=== PATIENT | female | born 1950 | race Caucasian/White ===

== ENCOUNTER 2017-09-19 14:10 | Emergency (ER) | payer MEDICARE, SELFPAY | END 2017-09-19 16:36 | disposition home or self-care (01) | PROVIDERS: Emergency Provider Emergency Medicine; Visit Provider Emergency Medicine | DX: B35.4 Tinea corporis (principal); N30.00 Acute cystitis without hematuria; E11.65 Type 2 diabetes mellitus with hyperglycemia; Z79.4 Long term (current) use of insulin; Z79.899 Other long term (current) drug therapy; I25.10 Atherosclerotic heart disease of native coronary artery without angina pectoris; I10 Essential (primary) hypertension; E78.5 Hyperlipidemia, unspecified; E03.9 Hypothyroidism, unspecified; F17.210 Nicotine dependence, cigarettes, uncomplicated | CPT/HCPCS: 81001; 82962; 87086; 87088; 87186; 99282 ==

== ENCOUNTER 2017-09-21 11:08 | Inpatient (IN) | payer MEDICARE, SELFPAY | END 2017-09-22 13:15 | disposition home or self-care (01) | DRG 641 | PROVIDERS: Admitting Provider Family Medicine; Emergency Provider Emergency Medicine; Family Provider Emergency Medicine; Visit Provider Family Medicine | DX: E87.6 Hypokalemia (principal); G20 Parkinson's disease; N39.0 Urinary tract infection, site not specified; B96.20 Unspecified Escherichia coli [E. coli] as the cause of diseases classified elsewhere; E11.9 Type 2 diabetes mellitus without complications; S40.011A Contusion of right shoulder, initial encounter; Z91.81 History of falling; W01.0XXA Fall on same level from slipping, tripping and stumbling without subsequent striking against object, initial encounter | CPT/HCPCS: 36415; 70450; 73030; 73080; 73502; 80048; 80053; 80305; 81001; 82550; 82553; 82962; 84484; 85025; 87086; 87088; 87186; 93005; 93041; 97162; 99282; 99285 ==

== ENCOUNTER 2017-10-08 02:44 | Emergency (ER) | payer MEDICARE, SELFPAY ==
[2017-10-08 02:44] VITALS: BP 145/98; PULSE 71; RESP 18; TEMP 36.6; O2SAT 94; BMI 37.8
--- NOTE | 2017-10-08 02:55 | CT_ITS ---
CT cervical spine wo con COMPARISON: None HISTORY: Neck pain after a fall TECHNIQUE: Multiaxial scans of cervical spine were obtained. Sagittal and coronal reformats were evaluated as well. FINDINGS: There is some straightening of normal curvature suggesting muscle spasm. There is multilevel degenerative changes noted with disc space narrowing and anterior and posterior osteophytic spurring at multiple levels. Disc space narrowing is most prominent at C5-6 and C6-7 levels. The prevertebral soft tissues are normal and the odontoid is normal. There is mild neural foraminal narrowing bilaterally at the C6-7 level secondary to spurring of the uncinate joints. There is focal ossification in the nuchal ligament at the C5-6 and C6-7 levels. IMPRESSION: Findings of muscle spasm along with multilevel degenerative changes, no acute pathology noted, agree the [facility] report
--- NOTE | 2017-10-08 02:55 | XR_ITS ---
XR hand RT 2V COMPARISON: None HISTORY: Right hand pain after a fall TECHNIQUE: AP lateral and oblique views FINDINGS: The carpal bones and metacarpals appear intact with no evidence of fracture. There is a fracture at the base of the distal phalanx of the thumb essentially nondisplaced.. There is mild soft tissue swelling at the base and along the border of the thumb. There are no foreign bodies. IMPRESSION: Soft tissue swelling the thumb along with nondisplaced fracture base of the distal phalanx of thumb
--- NOTE | 2017-10-08 03:01 | CT_ITS ---
CT head/brain wo con COMPARISON: CT scan of brain noncontrast 09/21/2017 HISTORY: Head trauma after a fall TECHNIQUE: Multiaxial scans obtained from base skull to the vertex and were performed without IV contrast. FINDINGS: The base of skull appears normal, the mastoids are clear. The basilar cisterns are prominent. There is diffuse ventriculomegaly. The sylvian fissures and cortical sulci are prominent. There are moderate periventricular hypodensities consistent with chronic ischemic white matter changes. There is no bleed and is no extra-axial fluid collections there is focal soft tissue swelling right frontal parietal region of the scalp consistent with a hematoma and/or laceration.. Bony calvarium appears intact. The studies basely unchanged from the recent CT scan the brain. IMPRESSION: Findings of prominent cortical atrophy, no acute intracranial pathology noted, I agree the [facility] report.
[2017-10-08 03:44] VITALS: BP 135/111; PULSE 70; RESP 20; O2SAT 96
--- NOTE | 2017-10-08 04:23 | HMH.EDFALL ---
ED Disposition Clinical Impression: Laceration Fall Qualifiers: Encounter type: initial encounter Qualified Code(s): W19.XXXA - Unspecified fall, initial encounter Head contusion Qualifiers: Encounter type: initial encounter Contusion of head detail: scalp Qualified Code(s): S00.03XA - Contusion of scalp, initial encounter Thumb fracture Qualifiers: Encounter type: initial encounter Fracture type: closed Phalanx: distal Fracture alignment: nondisplaced Laterality: right Qualified Code(s): S62.524A - Nondisplaced fracture of distal phalanx of right thumb, initial encounter for closed fracture Disposition: Home, Self-Care Condition on Discharge: Good Instructions: DI for Laceration Repair Additional Instructions: suture out 12 days - Critical Care Critical Care Time: No Attestation: On 10/08/17, the high probability of a clinically significant, sudden or life threatening deterioration of the following system(s) required my full and direct attention, intervention and personal management. The time I documented below is in addition to time spent performing reported procedures but includes the following listed in this critical care notation. Medical Decision Making - Medical Records Medical records reviewed: Yes: I reviewed the patient's medical records. Vital Signs: 10/08/17 02:44 10/08/17 03:44 Temperature 97.8 F Temperature Source Oral Pulse Rate [Brachial] 71 70 Respiratory Rate 18 20 Blood Pressure [Right Arm] 145/98 135/111 Blood Pressure Mean [Right Arm] 113 119 Blood Pressure Source [Right Arm] Automatic Cuff Automatic Cuff Blood Pressure Position [Right Arm] Supine Supine 02 Sat by Pulse Oximetry 94 L 96 Oxygen Delivery Method Room Air Room Air Orders (Tests/Meds): ORDERS Category Date Time Status CT cervical spine wo con Stat Cat Scan 10/08/17 02:[address] head/brain wo con Routine Cat Scan 10/08/17 03:01 Taken XR hand RT 2V Stat Exams 10/08/17 02:55 Taken - Radiology Data #1 Image(s): Hand Image Reviewed: Yes I reviewed the patient's radiology image Preliminary Findings: Abnormal (sl distal fx ) - CT Data CT Scan: Head, C-Spine Time Received: 04:[address] Reviewed: Yes: I have viewed the radiologist's interpretation Preliminary Findings: No Fracture Seen - [facility] Inquiry Pt receiving controlled substance: No Fall HPI - General Chief Complaint: Wound/Laceration Stated Complaint: LACERATION Time Seen by Provider: 10/08/17 04:24 Mode of Arrival: EMS Source of Information: Patient, EMS, Medical Record Limitations: Physical Limitations Description of Symptoms (Recalled from ER Triage Doc. by RN): TRIP AND FALL, LACERATION TO FRONT OF SCALP - History of Present Illness HPI Narrative: trip fall injury at [facility] with no loc or focal neuro sx and has scalp lac and rt thumb injury MD complaint: fall Onset (ago): hour(s) Fall from: walking Fall witnessed: yes, by living facility staff Place fall occurred: [facility] Loss of consciousness: none Prolonged down time: no Context: tripped/slipped Location of injury: head Severity: moderate Associated symptoms (after fall): neck pain - Related Data Allergies Allergy/AdvReac Type Severity Reaction Status Date / Time oxycodone [OXYCODONE] Allergy Severe MOUTH AND Unverified 09/21/17 15:40 THROAT SWELL quetiapine [From SEROQUEL] Allergy Unknown Unverified 09/12/17 15:42 [facility] History I have reviewed the patient's past medical history: Yes Medical History: Reports:: Diabetes Mellitus Type 2 - *Social History Alcohol Intake: never - Psychiatric History Expresses thoughts of harming self/others: None Suicide Plan Description: No Plan ROS Obtained: Yes All systems reviewed & no additional complaints - Constitutional Constitutional: Denies fever(s) - Eyes Eyes: Denies change in vision - ENT Ears, Nose, Mouth, and Throat: Denies sore throat - Cardiovascular Cardiovascular: Denies
--- NOTE | 2017-10-08 04:27 | ED_ITS ---
ED Disposition Clinical Impression: Laceration Fall Qualifiers: Encounter type: initial encounter Qualified Code(s): W19.XXXA - Unspecified fall, initial encounter Head contusion Qualifiers: Encounter type: initial encounter Contusion of head detail: scalp Qualified Code(s): S00.03XA - Contusion of scalp, initial encounter Thumb fracture Qualifiers: Encounter type: initial encounter Fracture type: closed Phalanx: distal Fracture alignment: nondisplaced Laterality: right Qualified Code(s): S62.524A - Nondisplaced fracture of distal phalanx of right thumb, initial encounter for closed fracture Disposition: Home, Self-Care Condition on Discharge: Good Instructions: DI for Laceration Repair Additional Instructions: suture out 12 days - Critical Care Critical Care Time: No Attestation: On 10/08/17, the high probability of a clinically significant, sudden or life threatening deterioration of the following system(s) required my full and direct attention, intervention and personal management. The time I documented below is in addition to time spent performing reported procedures but includes the following listed in this critical care notation. Medical Decision Making - Medical Records Medical records reviewed: Yes: I reviewed the patient's medical records. Vital Signs: 10/08/17 02:44 10/08/17 03:44 Temperature 97.8 F Temperature Source Oral Pulse Rate [Brachial] 71 70 Respiratory Rate 18 20 Blood Pressure [Right Arm] 145/98 135/111 Blood Pressure Mean [Right Arm] 113 119 Blood Pressure Source [Right Arm] Automatic Cuff Automatic Cuff Blood Pressure Position [Right Arm] Supine Supine 02 Sat by Pulse Oximetry 94 L 96 Oxygen Delivery Method Room Air Room Air Orders (Tests/Meds): ORDERS Category Date Time Status CT cervical spine wo con Stat Cat Scan 10/08/17 02:[address] head/brain wo con Routine Cat Scan 10/08/17 03:01 Taken XR hand RT 2V Stat Exams 10/08/17 02:55 Taken - Radiology Data #1 Image(s): Hand Image Reviewed: Yes I reviewed the patient's radiology image Preliminary Findings: Abnormal (sl distal fx ) - CT Data CT Scan: Head, C-Spine Time Received: 04:[address] Reviewed: Yes: I have viewed the radiologist's interpretation Preliminary Findings: No Fracture Seen - [facility] Inquiry Pt receiving controlled substance: No Fall HPI - General Chief Complaint: Wound/Laceration Stated Complaint: LACERATION Time Seen by Provider: 10/08/17 04:24 Mode of Arrival: EMS Source of Information: Patient, EMS, Medical Record Limitations: Physical Limitations Description of Symptoms (Recalled from ER Triage Doc. by RN): TRIP AND FALL, LACERATION TO FRONT OF SCALP - History of Present Illness HPI Narrative: trip fall injury at [facility] with no loc or focal neuro sx and has scalp lac and rt thumb injury MD complaint: fall Onset (ago): hour(s) Fall from: walking Fall witnessed: yes, by living facility staff Place fall occurred: [facility]/SNF Loss of consciousness: none Prolonged down time: no Context: tripped/slipped Location of injury: head Severity: moderate Associated symptoms (after fall): neck pain - Related Data Allergies Allergy/AdvReac Type Severity Reaction Status Date / Time oxycodone [OXYCODONE] Allergy Severe MOUTH AND Unverified 09/21/17 15:40 T
== END 2017-10-08 05:47 | disposition home or self-care (01) ==
PROVIDERS: Emergency Provider Emergency Medicine; Family Provider Emergency Medicine
DX: S01.01XA Laceration without foreign body of scalp, initial encounter (principal); S62.524A Nondisplaced fracture of distal phalanx of right thumb, initial encounter for closed fracture; E11.9 Type 2 diabetes mellitus without complications; W01.0XXA Fall on same level from slipping, tripping and stumbling without subsequent striking against object, initial encounter; Y93.01 Activity, walking, marching and hiking; Y92.129 Unspecified place in nursing home as the place of occurrence of the external cause
CPT/HCPCS: 12002; 70450; 72125; 73120; 99283

== ENCOUNTER 2018-04-24 09:57 | Outpatient (CLI) | payer MEDICARE, SELFPAY ==
[2018-04-24 10:33] VITALS: BMI 40.7
[2018-04-24 10:44] VITALS: BP 124/77; PULSE 74; RESP 18; TEMP 36.4; O2SAT 97
[2018-04-24 10:44] LABS: Anion Gap 8.9 mEq/L (5-15); Blood Urea Nitrogen 18 mg/dL (7-18); Carbon Dioxide 31 mmol/L (21.0-32.0); Chloride 104 mmol/L (98-107); Creatinine Clearance Estimated 70 mL/min (0-300); Creatinine,Serum 1.23 mg/dL (0.55-1.02); Estimated Glomerular Filt Rate 43 ml/min (>60); GFR (African American) 52 ML/MIN (>60); Glucose 89 mg/dL (74-106); Potassium 3.9 mmoL/L (3.5-5.1); Sodium 140 mmol/L (136-145)
[2018-04-24 11:14] VITALS: BP 121/72; PULSE 78; RESP 18; O2SAT 96
[2018-04-24 11:25] VITALS: BP 119/78; PULSE 75; RESP 18; O2SAT 97
== END 2018-04-24 11:30 | disposition home or self-care (01) ==
PROVIDERS: PCP Family Medicine; Visit Provider Family Medicine
DX: N39.0 Urinary tract infection, site not specified (principal)
CPT/HCPCS: 80048; 96365; J1335

== ENCOUNTER 2018-04-25 10:12 | Outpatient (CLI) | payer MEDICARE, SELFPAY ==
[2018-04-25 10:30] VITALS: BP 111/54; PULSE 70; RESP 18; TEMP 36.6; O2SAT 93
[2018-04-25 11:00] VITALS: BP 116/48; PULSE 67; RESP 18; O2SAT 93
[2018-04-25 11:30] VITALS: BP 115/58; PULSE 67; RESP 18
== END 2018-04-25 11:30 | disposition home or self-care (01) ==
LOC: INF 10:12
PROVIDERS: Family Provider Emergency Medicine; PCP Family Medicine; Visit Provider Family Medicine
DX: N39.0 Urinary tract infection, site not specified (principal)
CPT/HCPCS: 96365; J1335

== ENCOUNTER 2018-04-26 09:54 | Outpatient (CLI) | payer MEDICARE, SELFPAY ==
[2018-04-26 10:10] VITALS: BP 94/62; PULSE 70; RESP 18; O2SAT 96
[2018-04-26 10:40] VITALS: BP 148/66; PULSE 69; RESP 18
[2018-04-26 10:50] VITALS: BP 117/87; PULSE 70; RESP 18
== END 2018-04-26 11:20 | disposition home or self-care (01) ==
LOC: INF 09:54
PROVIDERS: Family Provider Emergency Medicine; PCP Family Medicine; Visit Provider Family Medicine
DX: N39.0 Urinary tract infection, site not specified (principal)
CPT/HCPCS: 96365; J1335

== ENCOUNTER 2018-04-27 09:48 | Outpatient (CLI) | payer MEDICARE, SELFPAY ==
[2018-04-27 10:15] VITALS: BP 118/49; PULSE 66; RESP 20; TEMP 36.6; O2SAT 96
[2018-04-27 10:55] VITALS: BP 120/70; PULSE 70; RESP 20; TEMP 36.6; O2SAT 94
== END 2018-04-27 10:55 | disposition home or self-care (01) ==
LOC: INF 09:48
PROVIDERS: Family Provider Emergency Medicine; PCP Family Medicine; Visit Provider Family Medicine
DX: N39.0 Urinary tract infection, site not specified (principal)
CPT/HCPCS: 96365; J1335

== ENCOUNTER 2018-04-28 11:11 | Outpatient (CLI) | payer MEDICARE, SELFPAY ==
[2018-04-28 11:20] VITALS: BP 114/49; PULSE 72; RESP 20; TEMP 36.4; O2SAT 98; BMI 38.4
[2018-04-28 12:25] VITALS: BP 109/46; PULSE 70; RESP 20; TEMP 36.5; O2SAT 95
== END 2018-04-28 12:25 | disposition home or self-care (01) ==
PROVIDERS: Family Provider Emergency Medicine; PCP Family Medicine; Visit Provider Family Medicine
DX: N39.0 Urinary tract infection, site not specified (principal)
CPT/HCPCS: 96365; G0463; J1335

== ENCOUNTER 2018-04-29 11:20 | Outpatient (CLI) | payer MEDICARE, SELFPAY ==
[2018-04-29 11:40] VITALS: BP 177/75; PULSE 65; RESP 18; TEMP 36.9; O2SAT 99
[2018-04-29 12:15] VITALS: BP 170/67; PULSE 70; RESP 18; TEMP 36.5; O2SAT 95
== END 2018-04-29 12:20 | disposition home or self-care (01) ==
LOC: INF 11:21
PROVIDERS: Family Provider Emergency Medicine; PCP Family Medicine; Visit Provider Family Medicine
DX: N39.0 Urinary tract infection, site not specified (principal)
CPT/HCPCS: 96365; J1335

== ENCOUNTER 2018-04-30 09:49 | Outpatient (CLI) | payer MEDICARE, SELFPAY ==
[2018-04-30 10:32] VITALS: BP 153/72; PULSE 70; RESP 16; TEMP 36.5; O2SAT 94; BMI 40.7
[2018-04-30 12:15] VITALS: BP 148/70; PULSE 68; RESP 20; TEMP 36.6; O2SAT 95
== END 2018-04-30 11:00 | disposition home or self-care (01) ==
LOC: INF 09:49
PROVIDERS: Family Provider Emergency Medicine; PCP Family Medicine; Visit Provider Family Medicine
DX: N39.0 Urinary tract infection, site not specified (principal)
CPT/HCPCS: 96365; J1335

== ENCOUNTER → 2019-11-28 11:42 | Outpatient (CLI) | payer MEDICARE, SELFPAY ==
--- NOTE | 2019-11-28 11:51 | XR_ITS ---
PROCEDURE: XR CHEST 2V CLINICAL HISTORY: PPM in place,looking at leads Heart disease, evaluate cardiac pacemaker COMPARISON: CXR2 CHEST-AP VIEW ONLY from 09/08/2015 CXR1 CHEST-PORTABLE from 05/02/2017 CXR1 CHEST-PORTABLE from 05/05/2017 CXR1 CHEST-PORTABLE from 05/08/2017 FINDINGS: Normal heart size. There is a bipolar pacemaker present from left subclavian approach. Leads appear in satisfactory position 1 in the area of the right atrium and 1 in the area of the right ventricle. Elevated right hemidiaphragm with right basilar atelectatic changes. The remaining lungs are clear. There are atelectatic or fibrotic changes in the right middle lobe. No acute bony abnormalities. IMPRESSION: Cardiac pacemaker present. Elevated right hemidiaphragm with right basilar and right middle lobe atelectasis Dictated by: John Red MD 11/28/2019 15:34 Electronically signed by John Red MD in [place] 11/28/2019 15:34
[2019-11-28 12:50] LABS: Basophils % 0.5 % (0.1-2.0); Eosinophils # 0.1 K/mm3 (0.0-0.4); Eosinophils % 1.1 % (0.1-12.0); Hematocrit 36.1 % (37.0-47.0); Hemoglobin 11.6 g/dL (12.2-16.2); Lymphocytes # 2.2 K/mm3 (0.7-4.5); Lymphocytes % 31.7 % (10-50); Mean Corpuscular HGB Conc 32.1 g/dL (31.8-35.4); Mean Corpuscular Hemoglobin 29.3 pg (27.0-31.2); Mean Corpuscular Volume 91.3 fl (81-99); Mean Platelet Volume 7.8 fl (7.4-10.4); Monocytes # 0.6 K/mm3 (0.1-1.0); Neutrophils # 4.1 K/mm3 (1.8-7.8); Neutrophils % 57.7 % (37.0-80.0); Platelet Count 190 K/mm3 (142-424); Red Blood Count 3.95 M/mm3 (4.20-5.40); Red Cell Distribution Width 14.8 % (11.5-17.5)
[2019-11-28 13:49] LABS: Anion Gap 14.3 mEq/L (5-15); Blood Urea Nitrogen 32 mg/dl (7-17); Calcium 9.5 mg/dl (8.4-10.2); Carbon Dioxide 28 mmol/L (22.0-30.0); Chloride 99 mmol/L (98-107); Estimated Glomerular Filt Rate 44 ml/min (>60); GFR (African American) 54 ML/MIN (>60); Glucose 148 mg/dl (74-100); Potassium 4.3 mmoL/L (3.5-5.1); Sodium 137 mmol/L (136-145)
[2019-11-28 15:39] LABS: Albumin Level 3.7 g/dl (3.5-5.0); Alkaline Phosphatase 68 U/L (38-126); Aspartate Amino Transferase 19 U/L (14-36); Bilirubin,Direct 0.1 mg/dl (0.0-0.4); Bilirubin,Indirect 0.3 mg/dL (0.0-0.9); Bilirubin,Total 0.4 mg/dl (0.2-1.3); Bilirubin,Unconjugated 0.2 mg/dL (0.0-1.1)
[2019-11-28 15:50] LABS: Alanine Aminotransferase 5 U/L (12-78)
[2019-11-28 15:57] LABS: Free T4 (Free Thyroxine) 2.47 ng/dl (0.78-2.19)
[2019-11-28 16:11] LABS: Thyroid Stimulating Hormone 7.91 uIU/mL (0.465-4.68)
== END ==
PROVIDERS: PCP Family Medicine; Visit Provider Nurse Practitioner Family
DX: I10 Essential (primary) hypertension (principal); I25.10 Atherosclerotic heart disease of native coronary artery without angina pectoris; Z95.0 Presence of cardiac pacemaker; I48.91 Unspecified atrial fibrillation; E78.5 Hyperlipidemia, unspecified; I48.0 Paroxysmal atrial fibrillation; E11.9 Type 2 diabetes mellitus without complications; Z79.84 Long term (current) use of oral hypoglycemic drugs
CPT/HCPCS: 36415; 71046; 80048; 80076; 84439; 84443; 85025

== ENCOUNTER → 2020-01-28 11:10 | Outpatient (CLI) | payer MEDICARE, SELFPAY ==
--- NOTE | 2020-01-28 11:11 | CA_ITS ---
APPROVED REPORT EXAM: Comprehensive 2D, Doppler, and color-flow Echocardiogram Refuse Collector: Debora Robert RT(R) Ht: 5 ft 3 in Wt: 210lbs BSA: 1.97 BP: 170/78 mmHg Indications: SOB, ex smoker, fatigue, edema, HTN, DM, angina, dizziness, CAD, AFIB, pacemaker, h/o CVA 2D Dimensions LVOT 1.89 cm (M/F) 1.5-2.5 M-Mode Dimensions RVDd 2.07 cm (0.9-2.6) LVDd 4.39 cm (3.5-5.7) LVDs 3.82 cm (3.5-5.7) IVSd 1.04 cm (0.6-1.1) PWd 1.12 cm (0.6-1.1) EF (Teich) 28.10% FS 13.00% EDV (Teich) 87.20 mL ESV (Teich) 62.70 mL Left Ventricle Left atrium is mildly enlarged, left ventricle is normal size, mild concentric left ventricular hypertrophy, visually estimated ejection fraction 55% with no regional wall motion abnormality, diastolic parameters are inconclusive. Right Ventricle Right atrium and right ventricular normal size and contractility, the pacemaker leads are not well visualized. Aortic Valve Aortic valve is thickened and calcified leaflet chordae display good mobility, there is no aortic stenosis or aortic insufficiency. Mitral Valve Mitral valve leaflets are minimally thickened, there is no mitral stenosis, there is mild mitral regurgitation. Tricuspid Valve Tricuspid valve is grossly normal, there is mild tricuspid regurgitation. Pulmonic Valve Pulmonic valve is poorly visualized. Great Vessels Aortic root is normal size. Pericardium No significant pericardial effusion noted. Conclusion 1. Mildly enlarged left atrium, normal left ventricular size, mild concentric left ventricular hypertrophy, visually estimated ejection fraction 55% with no regional wall motion abnormality, diastolic parameters are inconclusive. 2. Thickened and calcified aortic valve without aortic stenosis aortic insufficiency. 3. Mild mitral and tricuspid regurgitation. 4. The pacemaker leads are not well visualized. 5. No significant pericardial effusion. Electronically signed by : Erlin Cardenas, 01/28/2020 20:01:30
== END ==
PROVIDERS: PCP Family Medicine; Visit Provider Nurse Practitioner Family
DX: I25.10 Atherosclerotic heart disease of native coronary artery without angina pectoris (principal)
CPT/HCPCS: 93306

== ENCOUNTER 2020-02-26 05:03 | Emergency (ER) | payer MEDICARE, SELFPAY ==
[2020-02-26 05:09] VITALS: BP 186/85; PULSE 70; RESP 16; TEMP 37.1; O2SAT 97; BMI 37.2
[2020-02-26 05:41] VITALS: BP 000/00; PULSE 0; RESP 0; TEMP -17.7; TEMP 0; O2SAT 0
== END 2020-02-26 05:47 | disposition left against medical advice (07) ==
PROVIDERS: Emergency Provider Emergency Medicine; PCP Family Medicine
DX: Z53.21 Procedure and treatment not carried out due to patient leaving prior to being seen by health care provider (principal); R04.0 Epistaxis
CPT/HCPCS: 99211; 99281

== ENCOUNTER 2020-08-08 12:00 | Emergency (ER) | payer MEDICARE, SELFPAY ==
[2020-08-08 12:05] VITALS: BP 179/67; PULSE 71; RESP 17; O2SAT 99; BMI 40.7
--- NOTE | 2020-08-08 12:08 | XR_ITS ---
PROCEDURE: XR KNEE RT 2V.. From 08/08/2020 XR FEMUR RT 2V... from 08/08/2020 Referring Doctor: Sudhakar Martins Patient Age:70Y CLINICAL INDICATION: right hip pain right leg pain extends to knee COMPARISON: CR [id number] KNEE-3 VIEWS-LT from 05/01/2017 CR XR FEMUR RT 2V from 08/08/2020 CR XR HIP RT 2-3V W/PELVIS from 08/08/[address] HIP RT WO CON from 08/08/2020 FINDINGS: Right knee 2 view: AP and cross-table lateral No joint effusion. No acute fracture or dislocation. No lytic or blastic change. Adequate mineralization only mild demineralization Joint space well maintained with only only slight some borderline narrowing of the medial compartment on this nonweightbearing image. No erosive changes.; no subchondral cyst. Faint calcification projected over the tibial spine of not felt to be of significance and likely merely a far posterior small vascular calcification. . Right femur: AP and lateral view. Right femur intact-. No fracture. No lesions evident. Right femoral shaft intact The right hip included on this image set with no acute findings. Again longstanding stable mild hypertrophic changes and mild dystrophic calcification overlying the greater trochanter again noted. Diffuse faint wall vascular calcification SFA-suspect patient may be diabetic with this eggshell thin vascular calcification appearance. No additional soft tissue findings IMPRESSION: Right knee. No effusion. No fracture. No acute appearing findings. Borderline narrowing medial compartment on this nonweightbearing film may reflect scant degenerative changes Right femur intact with with no fracture or acute findings . Stable appearance at the right hip and greater trochanter unchanged since prior studies 2016, 2017 Dictated by: John Garcia MD 08/09/2020 11:27 John Garcia MD in [place] 08/09/2020 11:27
--- NOTE | 2020-08-08 12:08 | XR_ITS ---
PROCEDURE: XR HIP RT 2-3V W/PELVIS Referring Doctor: Sudhakar Martins Patient Age:70Y CLINICAL INDICATION: right hip pain right hip pain COMPARISON: CR PELAP PELVIS AP ONLY from 09/08/2015 CR [id number] HIP RT 2-3V W/PELVIS IF PERFOR from 09/21/2017 FINDINGS: Right hip AP and cross-table lateral views along with AP pelvis performed today These are reviewed in conjunction of CT right hip from today as well as CT pelvis for 2018 .. The Today's study shows no significant change since August 2017. Again some minimal dystrophic calcification and irregularity is seen at the lateral margin of the greater trochanter similar to the 2017 exam. No significant new plain films findings here. This feature is actually best seen on on the frog-leg view of right hip on 2017, which was not obtained today but however CT show that this area is stable but What is seen otherwise at the right hemipelvis appear stable with no acute findings but there mild degenerative changes right hip with some mild hypertrophic lipping at the superior acetabulum, but the superior hip joint spaces well maintained. Mild diffuse demineralization but unimpressive. Faint diffuse atherosclerotic calcification throughout proximal SFA-I suspect the patient diabetic with this appearance No fracture or dislocation is evident. No significant degenerative change. No lytic or blastic change. The AP pelvis image appears unchanged since 2017 as well. Sacrum SI joints appears satisfactory. The iliac bone and pubis and superior/inferior ramus appears satisfactory stable. The. IMPRESSION: No acute findings right hip. Minor degenerative changes right hip. No significant change since 2017 plain films of the right hip (Again minimal dystrophic calcification overlying the greater trochanter noted of similar to previous study.) Dictated by: John Garcia MD 08/08/2020 14:38 John Garcia MD in [place] 08/08/2020 14:38
--- NOTE | 2020-08-08 12:08 | XR_ITS ---
PROCEDURE: XR KNEE RT 2V.. From 08/08/2020 XR FEMUR RT 2V... from 08/08/2020 Referring Doctor: Sudhakar Martins Patient Age:70Y CLINICAL INDICATION: right hip pain right leg pain extends to knee COMPARISON: CR KNEE3L KNEE-3 VIEWS-LT from 05/01/2017 CR XR FEMUR RT 2V from 08/08/2020 CR XR HIP RT 2-3V W/PELVIS from 08/08/[address] HIP RT WO CON from 08/08/2020 FINDINGS: Right knee 2 view: AP and cross-table lateral No joint effusion. No acute fracture or dislocation. No lytic or blastic change. Adequate mineralization only mild demineralization Joint space well maintained with only only slight some borderline narrowing of the medial compartment on this nonweightbearing image. No erosive changes.; no subchondral cyst. Faint calcification projected over the tibial spine of not felt to be of significance and likely merely a far posterior small vascular calcification. . Left femur: AP and lateral view. Femoral shaft intact. No fracture. No lesions evident The the right hip included with no acute findings. Stable mild hypertrophic changes and mild dystrophic calcification overlying the greater trochanter again noted. Diffuse faint wall vascular calcification SFA-suspect patient may be diabetic with this eggshell thin vascular calcification appearance. No additional soft tissue findings IMPRESSION: Right knee. No effusion. No fracture. No acute appearing findings. Borderline narrowing medial compartment on this nonweightbearing film may reflect scant degenerative changes Right femur intact with with no fracture or acute findings . Stable appearance at the right hip and greater trochanter unchanged since prior studies 2016, 2018 Dictated by: John Garcia MD 08/08/2020 15:10 John Garcia MD in [place] 08/08/2020 15:10
--- NOTE | 2020-08-08 12:13 | HMH.EDGENADL ---
ED Disposition Clinical Impression: Right hip pain Disposition: Home, Self-Care Condition on Discharge: Fair Instructions: Sprain, DI for Chronic Pain -- Adult Additional Instructions: Please return with any new or worsening symptoms. Follow-up with your primary care physician on Monday for possible physical therapy referral. Take medication as prescribed. Prescriptions: Hydrocodone/Acetaminophen [Lortab 7.5/325mg tablet] 1 tab PO Q6HP PRN #10 tab PRN Reason: Severe Pain Prescription Printed Referrals: Pérez Sethi MD [Primary Care Provider] - - Critical Care Critical Care Time: No Attestation: On , the high probability of a clinically significant, sudden or life threatening deterioration of the following system(s) required my full and direct attention, intervention and personal management. The time I documented below is in addition to time spent performing reported procedures but includes the following listed in this critical care notation. Medical Decision Making - Medical Records Medical records reviewed: Yes: I reviewed the patient's medical records. - [facility] Inquiry Pt receiving controlled substance: Yes [facility] was queried for this patient: Yes Reference #:: [id number] Risks and benefits of using a controlled substance: were discussed with pt by me Vital Signs: 08/08/20 12:05 08/08/20 13:47 08/08/20 14:28 Temperature Source Oral Pulse Rate [Right Brachial] 71 87 71 Respiratory Rate 17 Blood Pressure [Right Arm] 179/67 H 179/71 H 159/74 H Blood Pressure Mean [Right Arm] 104 107 102 Blood Pressure Source [Right Arm] Automatic Cuff Automatic Cuff Automatic Cuff Blood Pressure Position [Right Arm] Sitting Sitting Sitting 02 Sat by Pulse Oximetry 99 98 98 Oxygen Delivery Method Room Air Room Air Room Air - Lab Data Lab Results 08/08/20 12:15: WBC 5.1, RBC 4.26, Hgb 12.6, Hct 38.0, MCV 89.2, MCH 29.6, MCHC 33.2, RDW 16.1, Plt Count 197, MPV 8.2, Neut % (Auto) 54.3, Lymph % (Auto) 37.1, Hardy % (Auto) 6.5, Eos % (Auto) 1.8, Baso % (Auto) 0.4, Neut # (Auto) 2.8, Lymph # (Auto) 1.9, Hardy # (Auto) 0.3, Eos # (Auto) 0.1, Baso # (Auto) 0.0, ESR 26 08/08/20 12:15: PT 14.3 H, INR 1.32 H 08/08/20 12:15: Sodium 140, Potassium 4.3, Chloride 103, Carbon Dioxide 29, Anion Gap 12.3, BUN 19 H, Creatinine 1.40 H, Estimated Creat Clear 60, Estimated GFR 37 L, Est GFR ( Amer) 45 L, Glucose 199 H, Calcium 9.2, Total Bilirubin 0.5, AST 21, ALT 10 L, Alkaline Phosphatase 69, C-Reactive Protein 6.8 H, Total Protein 7.6, Albumin 3.8, Globulin 3.8 H, Albumin/Globulin Ratio 1.0 L Result diagrams: 08/08/20 12:15 08/08/20 12:15 Orders (Tests/Meds): ED MEDICATIONS Discontinued Medications Generic Name Dose Route Start Last Admin Trade Name Freq PRN Reason Stop Dose Admin Morphine Sulfate 2 mg 08/08/20 12:08 08/08/20 12:17 Morphine 2mg/Ml Syringe IV 08/08/20 12:09 2 mg ONCE ONE Administration Morphine Sulfate 4 mg 08/08/20 12:40 08/08/20 12:57 Morphine 4mg/Ml Syringe IV 08/08/20 12:41 4 mg ONCE ONE Administration ORDERS Category Date Time Status XR femur RT 2V Stat Exams 08/08/20 12:08 Taken Medical Decision Narrative: The patient is a 70-year-old female with extensive cardiac history who presents to the emergency department today with nontraumatic right hip pain. Differential includes pathologic fracture, septic joint, bursitis. Labs ordered and notable for relatively low CRP, normal white count. X-rays nondiagnostic. CT scan of the right hip ordered and showed possible bursitis, however unlikely given that the patient is not very mobile. Patient has point tenderness over the greater trochanter and states she has chronic back pain which is at its baseline. No bowel or bladder incontinence so spinal cord pathology unlikely. Patient does report sciatica symptoms radiating down her right leg. Patient has a wheelchair at home and has the ability to close follow
[2020-08-08 12:27] LABS: Basophils % 0.4 % (0.1-2.0); Eosinophils # 0.1 K/mm3 (0.0-0.4); Eosinophils % 1.8 % (0.1-12.0); Hemoglobin 12.6 g/dL (12.2-16.2); Lymphocytes # 1.9 K/mm3 (0.7-4.5); Lymphocytes % 37.1 % (10-50); Mean Corpuscular HGB Conc 33.2 g/dL (31.8-35.4); Mean Corpuscular Hemoglobin 29.6 pg (27.0-31.2); Mean Corpuscular Volume 89.2 fl (81-99); Mean Platelet Volume 8.2 fl (7.4-10.4); Monocytes # 0.3 K/mm3 (0.1-1.0); Monocytes % 6.5 % (1.7-9.3); Neutrophils # 2.8 K/mm3 (1.8-7.8); Neutrophils % 54.3 % (37.0-80.0); Platelet Count 197 K/mm3 (142-424); Red Blood Count 4.26 M/mm3 (4.20-5.40); Red Cell Distribution Width 16.1 % (11.5-17.5); White Blood Count 5.1 K/mm3 (4.8-10.8)
[2020-08-08 12:30] LABS: Chloride 103 mmol/L (98-107); Potassium 4.3 mmoL/L (3.5-5.1); Sodium 140 mmol/L (136-145)
[2020-08-08 12:33] LABS: Alanine Aminotransferase 10 U/L (12-78); Albumin Level 3.8 g/dl (3.5-5.0); Alkaline Phosphatase 69 U/L (38-126); Anion Gap 12.3 mEq/L (5-15); Aspartate Amino Transferase 21 U/L (14-36); Bilirubin,Total 0.5 mg/dl (0.2-1.3); Blood Urea Nitrogen 19 mg/dl (7-17); Calcium 9.2 mg/dl (8.4-10.2); Carbon Dioxide 29 mmol/L (22.0-30.0); Creatinine Clearance Estimated 60 mL/min (50-200); Estimated Glomerular Filt Rate 37 ml/min (>60); GFR (African American) 45 ML/MIN (>60); Globulin 3.8 g/dL (1.3-3.2); Glucose 199 mg/dl (74-100); Total Protein,Serum 7.6 g/dl (6.3-8.2)
[2020-08-08 12:39] LABS: C-Reactive Protein 6.8 mg/L (0-4)
[2020-08-08 12:41] LABS: INR 1.32 (0.9-1.1); Prothrombin Time 14.3 seconds (9.4-11.8)
[2020-08-08 12:53] LABS: Erythrocyte Sedimentation Rate 26 mm/hr (0-30)
--- NOTE | 2020-08-08 13:01 | PC.NURSE ---
Pt to rad.
--- NOTE | 2020-08-08 13:12 | CT_ITS ---
PROCEDURE: CT HIP RT WO CON Referring Doctor: Sudhakar Martins Patient Age:70Y CLINICAL HISTORY: right hip pain, tender over greater trochanter COMPARISON: CR [id number] HIP RT 2-3V W/PELVIS IF PERFOR from 09/21/[address] pelvis wo con from 04/19/2018 CR XR HIP RT 2-3V W/PELVIS from 08/08/2020 TECHNIQUE: No IV contrast. Helical spiralAxial images obtained with sagittal and coronal reformats on CT workstation. All CT scans at the facility use one or more dose reduction, viz: automated exposure control, ma/kV adjustment per patient size (including targeted exams where dose is matched to indication, i.e. head), or iterative reconstruction technique. FINDINGS: No acute fracture. Right hip intact and stable Stable small area of dystrophic calcification overlying the greater trochanter is again seen and likely associated with the myotendinous insertion point here. In either case this appearance unchanged since March 2018 CT of pelvis. This feature is also seen developing on the plain films from August 2017 Initially question trace fluid overlying the greater trochanter which could reflect a mild trochanteric bursitis however very similar appearance was seen on previous CT pelvis from 2018 in this regard as well in thus I believe this is normal baseline appearance.. However if pain persist at the right hip or at the right trochanteric region MRI could better evaluate this feature and other features that could yield pain at right hip. The right femoral head and neck are intact but only mild degenerative changes at through superior right hip joint with slight narrowing here. No fracture. No acute findings in this region.. Subtrochanteric region appears satisfactory. The visualized superior and inferior ramus and pubis on right satisfactory. Stable but no fractures but The right sacrum intact. Degenerative changes SI joint. Degenerative changes lower L-spine generous marginal osteophytes to the right L5/S1. The spurring at margin of L5/S1 does yield of some partially imaged foraminal encroachment on right more so than left at L5/S1. Also note diffuse disc bulge suggested L5/S1-partially imaged Diffuse atherosclerotic calcification of visualized proximal SFA, and deep femoral artery. Moderate plaque at the common femoral artery also observed. No significant inguinal hernia slow only slight bulging of fat and a slightly lax inguinal ring. Upper normal wall thickness urinary bladder with slight hazy appearance fat overlying the bladder is similar to previous studies and thus unlikely related to cystitis but you may want to consider checking UA with this appearance and if symptoms here IMPRESSION: No acute findings at the right hip. Stable appearance right hip since previous CT pelvis from March 2018. Minimal dystrophic calcification overlying the greater trochanter again seen with this area stable unchanged since 2018 the the Only scant degenerative changes right hip otherwise noted Remainder of the right hemipelvis appears stable and intact as well degenerative changes lower L-spine again noted Dictated by: John Garcia MD 08/08/2020 14:30 John Garcia MD in [facility] 08/08/2020 14:30
--- NOTE | 2020-08-08 13:43 | PC.NURSE ---
Pt returned from rad
[2020-08-08 13:47] VITALS: BP 179/71; PULSE 87; O2SAT 98
[2020-08-08 14:28] VITALS: BP 159/74; PULSE 71; O2SAT 98
--- NOTE | 2020-08-08 15:15 | PC.NURSE ---
Pt assisted to chair and is sitting up unassisted waiting on family to come pick her up.
[2020-08-08 15:29] VITALS: BP 160/72; PULSE 73; RESP 18; TEMP 36.8; O2SAT 98
== END 2020-08-08 15:32 | disposition home or self-care (01) ==
PROVIDERS: Emergency Provider Emergency Medicine; PCP Family Medicine
DX: M25.551 Pain in right hip (principal); E11.65 Type 2 diabetes mellitus with hyperglycemia; Z79.01 Long term (current) use of anticoagulants; Z88.5 Allergy status to narcotic agent; Z88.8 Allergy status to other drugs, medicaments and biological substances; Z79.899 Other long term (current) drug therapy; Z79.84 Long term (current) use of oral hypoglycemic drugs
CPT/HCPCS: 73502; 73552; 73560; 73700; 80053; 85025; 85610; 85651; 86140; 96374; 96376; 99283

== ENCOUNTER 2020-09-08 07:30 | Observation (INO) | payer MEDICARE, SELFPAY ==
[2020-09-08] VITALS (21 sets, daily range): BP systolic 88–169; BP diastolic 46–87; PULSE 69–74; RESP 16–18; TEMP 36.5–36.9; O2SAT 93–100; BMI 38.9; BMI 36.5
--- NOTE | 2020-09-08 07:38 | XR_ITS ---
PROCEDURE: XR CLAVICLE RT CLINICAL INDICATION: fall Injury with pain with deformity COMPARISON: CR XR SHOULDER RT MIN 2V from 09/08/2020 FINDINGS: Severely comminuted fracture involves the humeral neck with impaction of the fracture fragments. There is severe subacromial stenosis. There is medial displacement the distal fracture fragment by 13 mm. Osteoarthritic changes are present at the acromioclavicular joint. IMPRESSION: Severely comminuted humeral neck fracture with displacement and impaction of the distal fracture fragment. Dictated by: John Red MD 09/08/2020 09:08 John Red MD in [facility] 09/08/2020 09:08
--- NOTE | 2020-09-08 07:44 | XR_ITS ---
PROCEDURE: XR LUMBAR SPINE MIN 4V CLINICAL INDICATION: c/o pain Injury with pain COMPARISON: CR LS5 LUMBAR SPINE 5 VIEWS from 05/01/2017 FINDINGS: Normal alignment. No acute fracture or dislocation. There are mild degenerative changes. There is degenerative disc disease at L5-S1 with mild facet arthritic changes at L3-L4 and L5 and S1. Generalized vascular calcification is present. The SI joints have an unremarkable appearance. Small punctate areas of calcification are noted over both kidneys suggesting nephrolithiasis measuring 5 mm bilaterally.. Other findings:None. IMPRESSION: Degenerative changes as detailed above. Bilateral nephrolithiasis Dictated by: John Red MD 09/08/2020 09:05 John Red MD in [facility] 09/08/2020 09:05
--- NOTE | 2020-09-08 07:44 | PC.NURSE ---
pt to radiology
--- NOTE | 2020-09-08 07:58 | HMH.EDGENADL ---
ED Disposition Clinical Impression: Fracture, humerus, anatomical neck Qualifiers: Fracture type: closed Laterality: right Fracture healing: with routine healing Disposition: Home, Self-Care Condition on Discharge: Good Additional Instructions: Please follow-up with Dr. Blas next week. Remain in sling/swath until that time. Take prescribed medication only as prescribed. Use Tylenol for pain and only use prescribed medicine for breakthrough pain. Do not operate heavy machinery/drink alcohol while taking this pain medicine. Return immediately to our emergency department if any worsening pain, neurovascular changes in the right upper extremity including decreased movement/sensation, color changes, or any other new concerning symptoms. Prescriptions: Hydrocodone/Acetaminophen [Hydrocodone-Acetamin 5-325 mg] 0.5 each PO Q6HP PRN 7 Days #14 tab PRN Reason: Moderate To Severe Pain Transmission Status: Sent to [id number] Referrals: PCP,No [Non-Staff] - Jean-Paul Blas MD [Staff Physician] - 7-14 days (Please followup next week, 09/14-09/18, in regards to R humerus fracture) - Critical Care Critical Care Time: No Attestation: On 09/08/20, the high probability of a clinically significant, sudden or life threatening deterioration of the following system(s) required my full and direct attention, intervention and personal management. The time I documented below is in addition to time spent performing reported procedures but includes the following listed in this critical care notation. Medical Decision Making - Medical Records Medical records reviewed: Yes: I reviewed the patient's medical records. - [facility] Inquiry Pt receiving controlled substance: Yes [facility] was queried for this patient: No Reference #:: [id number] Reason not queried -: Emergent pt cond-no time Risks and benefits of using a controlled substance: were discussed with pt by me Comment: Initially did not query [facility] as patient had acute pain due to trauma Vital Signs: 09/08/20 07:30 09/08/20 07:38 09/08/20 08:39 Temperature 97.7 F Temperature Source Oral Pulse Rate [Left Radial] 70 70 70 Respiratory Rate 18 Blood Pressure [Left Arm] 129/82 129/82 127/53 L Blood Pressure Mean [Left Arm] 97 97 77 Blood Pressure Source [Left Arm] Automatic Cuff Automatic Cuff Automatic Cuff Blood Pressure Position [Left Arm] Sitting Sitting Sitting 02 Sat by Pulse Oximetry 97 99 97 Oxygen Delivery Method Room Air Room Air Room Air 09/08/20 09:16 09/08/20 09:29 09/08/20 10:01 Temperature Temperature Source Pulse Rate [Left Radial] 70 70 70 Respiratory Rate Blood Pressure [Left Arm] 133/79 127/71 118/66 Blood Pressure Mean [Left Arm] 97 89 83 Blood Pressure Source [Left Arm] Automatic Cuff Automatic Cuff Automatic Cuff Blood Pressure Position [Left Arm] Sitting Sitting Sitting 02 Sat by Pulse Oximetry 97 98 99 Oxygen Delivery Method Room Air Room Air Room Air 09/08/20 10:30 Temperature Temperature Source Pulse Rate [Left Radial] 69 Respiratory Rate Blood Pressure [Left Arm] 114/66 Blood Pressure Mean [Left Arm] 82 Blood Pressure Source [Left Arm] Automatic Cuff Blood Pressure Position [Left Arm] Sitting 02 Sat by Pulse Oximetry 96 Oxygen Delivery Method Room Air - Lab Data Lab Results 09/08/20 08:55: WBC 8.3, RBC 4.36, Hgb 12.8, Hct 38.8, MCV 88.9, MCH 29.4, MCHC 33.1, RDW 16.1, Plt Count 226, MPV 8.5, Neut % (Auto) 69.9, Lymph % (Auto) 23.2, [place] % (Auto) 4.5, Eos % (Auto) 1.9, Baso % (Auto) 0.5, Neut # (Auto) 5.8, Lymph # (Auto) 1.9, [place] # (Auto) 0.4, Eos # (Auto) 0.2, Baso # (Auto) 0.0 09/08/20 08:55: Sodium 139, Potassium 4.1, Chloride 104, Carbon Dioxide 28, Anion Gap 11.1, BUN 19 H, Creatinine 1.40 H, Estimated Creat Clear 57, Estimated GFR 37 L, Est GFR ( Amer) 45 L, Glucose 169 H, Calcium 9.3 09/08/20 08:55: SARS-CoV-2 IgG Ab (Rapid) Negative, SARS-CoV-2 IgM Ab (Rapid) Negative Result diagrams: 09/08/20 08
--- NOTE | 2020-09-08 08:11 | PC.NURSE ---
pt return from radiology
--- NOTE | 2020-09-08 08:11 | PC.NURSE ---
Pt returned from rad. DE DIOS at bedside
--- NOTE | 2020-09-08 08:12 | PC.NURSE ---
UNA DE DIOS at
[2020-09-08 09:18] LABS: Basophils % 0.5 % (0.1-2.0); Eosinophils # 0.2 K/mm3 (0.0-0.4); Eosinophils % 1.9 % (0.1-12.0); Hematocrit 38.8 % (37.0-47.0); Hemoglobin 12.8 g/dL (12.2-16.2); Lymphocytes # 1.9 K/mm3 (0.7-4.5); Lymphocytes % 23.2 % (10-50); Mean Corpuscular HGB Conc 33.1 g/dL (31.8-35.4); Mean Corpuscular Hemoglobin 29.4 pg (27.0-31.2); Mean Corpuscular Volume 88.9 fl (81-99); Mean Platelet Volume 8.5 fl (7.4-10.4); Monocytes # 0.4 K/mm3 (0.1-1.0); Monocytes % 4.5 % (1.7-9.3); Neutrophils # 5.8 K/mm3 (1.8-7.8); Neutrophils % 69.9 % (37.0-80.0); Platelet Count 226 K/mm3 (142-424); Red Blood Count 4.36 M/mm3 (4.20-5.40); Red Cell Distribution Width 16.1 % (11.5-17.5); White Blood Count 8.3 K/mm3 (4.8-10.8)
[2020-09-08 09:24] LABS: Chloride 104 mmol/L (98-107); Potassium 4.1 mmoL/L (3.5-5.1); Sodium 139 mmol/L (136-145)
[2020-09-08 09:27] LABS: Anion Gap 11.1 mEq/L (5-15); Blood Urea Nitrogen 19 mg/dl (7-17); Calcium 9.3 mg/dl (8.4-10.2); Carbon Dioxide 28 mmol/L (22.0-30.0); Creatinine Clearance Estimated 57 mL/min (50-200); Estimated Glomerular Filt Rate 37 ml/min (>60); GFR (African American) 45 ML/MIN (>60); Glucose 169 mg/dl (74-100)
--- NOTE | 2020-09-08 09:29 | PC.NURSE ---
son at bedside
--- NOTE | 2020-09-08 09:51 | PC.NURSE ---
Ortho resource paraprofessional paged.
[2020-09-08 09:53] LABS: Coronavirus 19 IgG Antibody Negative (Negative); Coronavirus 19 IgM Antibody Negative (Negative)
--- NOTE | 2020-09-08 09:55 | PC.NURSE ---
UNA DE DIOS spoke with Dr Blas
--- NOTE | 2020-09-08 09:56 | PC.NURSE ---
UNA DE DIOS at going over POC with pt and pt joseph
--- NOTE | 2020-09-08 10:16 | PC.NURSE ---
Follow up appointment made for Monday at 2:30pm
--- NOTE | 2020-09-08 10:21 | PC.NURSE ---
attempted to sit pt up on the side of the bed to apply sling and swathe. Pt was unable to maintain sitting position on her own. Called ER MD to BS, ER MD assessed pt, pt able to answer some questions but pt is extremely drowsy. Pupils pinpoint bp 88/46 HR 70, SaO2 97% on RA ER MD gave verbal order for NS 500 ML IV fluid bolus. pt laid back down in bed, will continue to monitor
--- NOTE | 2020-09-08 11:13 | PC.NURSE ---
Pt is awake, alert, oriented. ER MD has reassessed pt, states pt is ready for d/c. Notified pt son pt is ready for d/c
--- NOTE | 2020-09-08 11:52 | PC.NURSE ---
Pt's son has requested to speak with case management, called and spoke with Dunia and she stated someone will be down.
--- NOTE | 2020-09-08 12:04 | PC.NURSE ---
Isabell Mann at bedside
--- NOTE | 2020-09-08 12:33 | SW/DCPLANNER ---
Addendum entered by Isabell Mann 09/10/20 12:30: RECEIVED A CALL BACK FROM [facility] AND THEY CAN TAKE THIS PATIENT AFTER DECLINING THE REFERRAL YESTERDAY STATING PATIENT OWED THEM MONEY...KALEY FROM [facility] NOTIFIED THE SON AND HE IS IN AGREEMENT OF THE PLAN.. SHE WILL DISCHARGE THERE TODAY AND I HAVE LET HER KNOW AND DR GOLDSTEIN KNOW.... Addendum entered by Isabell Mann 09/09/20 15:47: RECEIVED A CALL BACK FROM KALEY AT [facility] AND SHE STATE THEY CAN NOT TAKE THIS PATIENT AFTER ACCEPTING HER.. SHE STATED [facility] HAD A LARGE BILL THERE THAT WAS NEVER TAKEN CARE OF AND SHE DID NOT KNOW THAT UNTIL THEY RAN HER INSURANCE FOR VERIFICATION. I CALLED THE SON AND TOLD HIM AND HE DIDN'T KNOW ANYTHING ABOUT IT.. HE REQUESTED IT BE SENT TO [facility] TO SIGNATURE AND I DID SEND IT, WAITING TO HEAR BACK... Addendum entered by Isabell Mann 09/09/20 13:42: PATIENT WAS ACCEPTED TO [facility] AND CAN GO [facility].. I WILL CALL THE SON AND LET HIM KNOW SO HE CAN BE PREPARED TO GO TO DO THE PAPERWORK... Addendum entered by Isabell Mann 09/09/20 11:35: PATIENT WAS BROUGHT UP ON THE FLOOR FROM THE ER AFTER SON TOLD STAFF AND MD THAT HE COULD NOT CARE FOR HER.. I HAVE CHECKED BED AVAILABILITY AND [facility] HAS FEMALE BEDS.. I HAVE SENT IT AND WAITING TO HEAR BACK FROM THEM TO WHETHER SHE MEETS THEIR LEVEL OF CARE... SHE WILL BE READY TO GO ONCE WE GET A CONFIRMATION FROM [facility] THEY CAN ACCEPT HER.... Original Note: WAS CALLED TO THE ER AFTER THIS PATIENT HAD A FALL AT HOME AND SUSTAINED A FALL THAT RESULTED IN A BROKEN HUMERUS.. PATIENT LIVES WITH HER SON AND HE HAD CONCERNS HE IS NOT ABLE TO CARE FOR HER... I EXPLAINED TO HIM SHE WOULD NEED A PT EVAL TO SEE IF SHE CAN EVEN BE SKILLED TO USE HER MCR BENEFIT.. 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 HE BECAME VERY UPSET WITH ME AND SAID I WAS TRYING TO PUT HER AWAY...HE THEN SAID HE WAS GOING TO TAKE HER HOME.. I TOLD HIM I WOULD GET HER A BEDSIDE [facility] AND HOME HEALTH AND HE WAS IN AGREEMENT. I GAVE HIM A LIST OF AGENCIES AND HE CHOSE [facility] AT HOME... I SENT A TEXT TO DR GOLDSTEIN AND HE WAS IN AGREEMENT AND AN ORDER WAS PUT IN FOR PRISON AND PHYSICAL THERAPY ALONG WITH A HOME SAFETY EVALUATION.. PATIENT HAS A HOSPITAL BED, WALKER, WHEELCHAIR AND I AM GOING TO ORDER A BEDSIDE [facility].. HOME HEALTH TO SEE PATIENT T[facility]W....
--- NOTE | 2020-09-08 14:05 | CT_ITS ---
PROCEDURE: CT HEAD/BRAIN WO CON CLINICAL INDICATION: altered mental status on xarelto Altered mental status, altered level of consciousness, confusion, disorientation COMPARISON: CT HEADWO CT head/brain wo con from 04/19/2018 TECHNIQUE: Axial images obtained. All CT scans at the facility use one or more dose reduction, viz: automated exposure control, ma/kV adjustment per patient size (including targeted exams where dose is matched to indication, i.e. head), or iterative reconstruction technique. FINDINGS: No midline shift, mass effect, intracranial hemorrhage, hydrocephalus, or extra-axial fluid collection is evident. There are low-density changes present in the left head of the caudate region which have developed since the previous exam consistent with an area of acute or subacute lacunar infarction. MRI would better date this region of infarction. No evidence of acute intracranial hemorrhage. There is generalized atrophy with hypoattenuation of the periventricular white matter consistent with microangiopathic changes.. The calvarium has an unremarkable appearance. No mastoid effusion. No sinus air-fluid level. IMPRESSION: There are low-density changes which have developed in the caudate nucleus on the left consistent with acute or subacute infarction. No intracranial hemorrhage or other significant anomaly. Dr. Romero was notified of the above findings by telephone 09/08/2020 at 2:40 p.m. Dictated by: John Red MD 09/08/2020 14:46 John Red MD in [facility] 09/08/2020 14:46
--- NOTE | 2020-09-08 14:10 | PC.NURSE ---
entered pt room to d/c pt, pt alert and oriented. d/c information given to pt and daughter in law. Daughter in law exits room to move vehicle closer for pt. Attempted to get pt up into wheelchair, pt refused to bear weight on BLE. Pt is drowsy and lethargic in nature. ER MD called to room to reassess pt, pt is responsive, can participate in exam. ER MD states he will order a head CT on pt and go from there. Pt gotten back onto stretcher from wheelchair, staff assist x3, pt was a full assist. IV reinserted to L AC #20' will continue to monitor.
--- NOTE | 2020-09-08 14:16 | PC.NURSE ---
Pt to rad
--- NOTE | 2020-09-08 14:16 | PC.NURSE ---
pt to CT
--- NOTE | 2020-09-08 14:44 | PC.NURSE ---
UNA DE DIOS speaking with radiologist.
--- NOTE | 2020-09-08 14:49 | PC.NURSE ---
waiting source water protection specialist back from cardiology r/t asking if pt pacemaker is MRI compatible
--- NOTE | 2020-09-08 14:53 | PC.NURSE ---
brodie in cardiology states pt mri is not compatible, notified ER
--- NOTE | 2020-09-08 15:09 | PC.NURSE ---
speaking with Dr. Sethi
--- NOTE | 2020-09-08 15:17 | PC.NURSE ---
speaking with pt's son on the phone at this time.
--- NOTE | 2020-09-08 15:24 | PC.NURSE ---
ER spoke with max from care management at this time
--- NOTE | 2020-09-08 15:34 | PC.NURSE ---
ER spoke with Dr Sethi again at this time who is agreeable to admit pt. Notified fuel house attendant of admission
--- NOTE | 2020-09-08 16:06 | HMH.PHAVTE ---
[facility] Pharmacy VTE Monitoring - Patient Demographics Admission date: 09/08/20 Report Date: 09/08/20 Time: 16:06 Allergies/Adverse Reactions: Patient Allergies oxycodone [OXYCODONE] Allergy (Severe, Verified 03/20/20 10:50) MOUTH AND THROAT SWELL quetiapine [From SEROQUEL] Allergy (Unknown, Verified 03/20/20 10:50) Height: 1.6 m Weight: 99.79 kg Patient Problems: Current Active Problems Fracture, humerus, anatomical neck (Acute) - VTE Risk Labs: VTE Related Lab Results Hgb 12.8 g/dL (12.2-16.2) 09/08/20 08:55 Hct 38.8 % (37.0-47.0) 09/08/20 08:55 Plt Count 226 K/mm3 (142-424) 09/08/20 08:55 BUN 19 mg/dl (7-17) H 09/08/20 08:55 Creatinine 1.40 mg/dl (0.52-1.04) H 09/08/20 08:55 Estimated Creat Clear 57 mL/min (50-200) 09/08/20 08:55 Clinical Trial Participant: No - Prophylaxis VTE Prophylaxis Ordered?: Yes Types of VTE Prophylaxis: TEDS Knee High Location of Applied Device: Bilateral Lower Extremeties
--- NOTE | 2020-09-08 16:25 | PC.NURSE ---
report given to saranya elizondo at this time.
[2020-09-08 17:40] LABS: POC Glucose,Bedside 169 (70-110)
--- NOTE | 2020-09-08 18:35 | PC.NURSE ---
shift note: new admit this afternoon from the ED. Dx: right humeral head fx. Not a candidate for surgery. GARRET is in a sling. She will lay on her left side only. Is pleasantly confused. Ate a couple bites of supper. Wears a brief as she is incontinent of urine. No family @ BS. Has bed alarm. Hx of dementia. Collaborated with Dr. Sethi. Orders entered and/or faxed to pharmacy on his behalf.
--- NOTE | 2020-09-08 19:17 | PC.NURSE ---
unable to confirm home meds with family as they are not @ BS. Collaborated with Dr. Sethi earlier and discussed home meds.
[2020-09-08 20:32] LABS: POC Glucose,Bedside 221 (70-110)
[2020-09-09] VITALS (7 sets, daily range): BP systolic 130–171; BP diastolic 54–79; PULSE 70–72; RESP 16–20; TEMP 36.7–37.2; O2SAT 90–100; BMI 36.8
--- NOTE | 2020-09-09 04:25 | PC.NURSE ---
PATIENT IS ALERT TO SELF AND . LUNGS ARE DIMINISHED, PULSES EQUAL. PATIENT IS WEAK BUE AND BLE. PATIENT HAS BEEN FATIGUED FOR MOST OF THIS RN SHIFT. NO COMPLAINTS OF PAIN WHEN ASSESSED. PATIENT DOES MOAN WHEN BEING TURNED. NO OTHER CONCERNS AT THIS TIME.
[2020-09-09 06:05] LABS: POC Glucose,Bedside 142 (70-110)
--- NOTE | 2020-09-09 07:24 | HMH.HP ---
*Admission Date: 09/08/20 *Chief complaint: Fall at home with right arm injury *History of present illness: 70-year-old female presented to the emergency department early yesterday morning after a fall at home that left her with a right humeral fracture. This morning patient cannot tell me how she fell. Yesterday patient spent the majority of the day in the ER with a temperature range patient's return to home with outpatient services of home health along with medical equipment to allow her to stay at home. Patient already has a hospital bed. However once everything was arranged family still felt uncomfortable being able to take the patient home. While the patient denied hitting her head with her fall decision was made to proceed with CT scan of the head which did reveal an acute versus a subacute left caudate nucleus stroke. Patient did not seemingly have any identifiable neurologic defect in the emergency department other than altered level of consciousness which also seem to be associated with administration of morphine. Decision was made to admit the patient for PT and OT assessment with possible placement in jail facility for short-term rehab. [facility] History I have reviewed the patient's past medical history: Yes Medical History: Reports:: Atrial Fibrillation, Coronary Artery Disease, Cerebrovascular Accident, Diabetes Mellitus Type 2, Hyperlipidemia, Hypertension, Internal Pacemaker, Renal Disease Denies:: Cancer, Diabetes Mellitus Type 1, MRSA *Have you ever received a pneumonia vaccine?: No *Have you received a flu vaccine this season?: No Other Medical History: Reports: Thyroid Disease Laterality Cases: Left: Arthroscopy Knee Other Surgeries: Yes: Cardiac Catheterization, Coronary Stent, Pacemaker Amputation: No - *Social History Smoking Status: Former smoker Alcohol Intake: never Substance Use Type: denies use *Occupational Status:: retired *Travel in the last 8 weeks: None Family Hx:: Coronary Artery Disease Review of Systems - Constitutional Denies body ache(s), Denies chills - Eyes Denies blurry vision, Denies change in vision, Denies loss of vision - ENT Reports abnormal hearing, Denies difficulty swallowing - *Cardiovascular Denies chest pain, Denies chest pain at rest - *Respiratory Reports chest congestion, Denies change in phlegm color, Denies cough, Denies shortness of breath, Denies shortness of breath with activity - *Gastrointestinal Denies abdominal pain, Denies belching, Denies bloating - *Musculoskeletal Denies abnormal walking, Denies joint pain, Denies decreased muscle mass - *Neurologic Reports abnormal walking Meds Home Medications Medication Instructions Recorded Confirmed Type amiodarone 200 mg tablet 200 mg PO DAILY 12/03/19 09/08/20 History carbidopa 25 mg-levodopa 100 mg 1 tab PO TID 12/03/19 09/08/20 History tablet hydrocodone 5 mg-acetaminophen 325 1 tab PO Q8H PRN 12/03/19 09/08/20 History mg tablet levothyroxine 100 mcg capsule 100 mcg PO DAILY 12/03/19 09/08/20 History metformin 500 mg tablet 500 mg PO DAILY 12/03/19 09/08/20 History divalproex 500 mg tablet,extended 1,000 mg PO HS tab 03/20/20 09/08/20 History release 24 hr Hydrocodone/Acetaminophen [Lortab 1 tab PO Q6HP PRN #10 tab 08/08/20 09/08/20 Rx 7.5/325mg tablet] Rivaroxaban [Xarelto 20mg Tablet*] See Rx Instructions .ROUTE .COMPLEX 08/08/20 09/08/20 History carvediloL [Carvedilol 6.25mg Tab] 6.25 mg PO BID 08/08/20 09/08/20 History Hydrocodone/Acetaminophen 0.5 each PO Q6H PRN 7 Days #14 tab 09/08/20 Rx [Hydrocodone-Acetamin 5-325 mg] Hydrocodone/Acetaminophen 0.5 each PO Q6HP PRN 7 Days #14 tab 09/08/20 Rx [Hydrocodone-Acetamin 5-325 mg] Allergies Allergy/AdvReac Type Severity Reaction Status Date / Time oxycodone [OXYCODONE] Allergy Severe MOUTH AND Verified 03/20/20 10:50 THROAT SWELL quetiapine [From SEROQUEL] Allergy Unknown Verified 03/20/20 10:50
--- NOTE | 2020-09-09 07:49 | HMH.PHAINT ---
Medication reconciliation completed using pharmacy claims data.
--- NOTE | 2020-09-09 10:10 | HMH.OTEV ---
OT Inpatient Evaluation Rehab OT IP Evaluation Start: 09/08/20 17:07 Freq: ONCE Status: Complete Protocol: Document 09/09/20 09:57 LUISPARISH (Rec: 09/09/20 10:09 NATHALYALVARO [id number]) Rehab OT IP Assessment Subjective History I can try. Subjective 70 year old female who had a fall at home resulting in R humeral fracture. CT scan revealed acute versus a subacute left caudate nucleus stroke. PMH: a-fib, CAD, CVA, DM type 2, HTNT, HLD and pacemaker. Objective Patient Orientation Person,Name Bed Mobility bed mobility-scooting,bed mobility - supine/sit,bed mobility - rolling Assist Level Total/Dependent (100%) Rehab OT IP prob,goals,plan Problems Date of Evaluation: 09/09/20 OT IP Problems Bed Mobility,Transfers,Balance ,Self care,Safety Rehab Potential Rehab Potential Good Equipment Needs Assistive Devices None / NA Plan OT intervention Plan Bed Mobility,Transfers,Balance ,Self care,Safety,Therapeutic Exercise OT Plan Frequency Daily Duration LOS Discharge Goals Bed Mobility Ability Assistance x1 Discharge Plan OT Discharge Plan Patient would benefit from SNF for rehabilitation. Eval Complexity Eval Charge Codes 30417 - Low Complexity G Codes G -code Required No PHYSICIAN CERTIFICATION: I certify the specified therapy services for Consuelo Lee are required, authorized, and reviewed every 30 days.
[2020-09-09 11:18] LABS: POC Glucose,Bedside 187 (70-110)
--- NOTE | 2020-09-09 12:00 | HMH.PTEV ---
Physical Therapy Evaluation Rehab PT IP Evaluation Start: 09/08/20 17:07 Freq: ONCE Status: Active Protocol: Document 09/09/20 11:53 JIMMYLAURA (Rec: 09/09/20 11:59 ALBERT [id number]) Subjective/History History History -year-old female presented to the emergency department early yesterday morning after a fall at home that left her with a right humeral fracture. This morning patient cannot tell me how she fell. Yesterday patient spent the majority of the day in the ER with a temperature range patient's return to home with outpatient services of home health along with medical equipment to allow her to stay at home. Patient already has a hospital bed. However once everything was arranged family still felt uncomfortable being able to take the patient home. While the patient denied hitting her head with her fall decision was made to proceed with CT scan of the head which did reveal an acute versus a subacute left caudate nucleus stroke. Patient did not seemingly have any identifiable neurologic defect in the emergency department other than altered level of consciousness which also seem to be associated with administration of morphine. Copied from H&P Subjective Subjective Pt has significant difficulty w/ understanding due to masks - pt alert to name and birthday only Rehab PT IP Eval Objective Appearance Patient Behavior Fatigued,Wandering Patient Orientation Name,Birthday Difficulty following instructions moderate Speech Pattern Slurred Ambulation Patient Able to Ambulate No Balance Ability to Arise Unable Sitting Balance Leans or slides in chair Standing Balance Unsteady Dyn
[2020-09-09 15:50] LABS: POC Glucose,Bedside 133 (70-110)
--- NOTE | 2020-09-09 18:02 | PC.NURSE ---
Pt has been pleasant and cooperative this shift. Alert to person only. No complaints of pain. Lungs CTA. No edema noted. Pt is incontinent and uses a brief to void clear, yellow urine without issue. No BM this shift. Pt requires turning/repositioning Q2H and also requires total assistance with meals. Pt has a good appetite and eats the majority of all meals. Pt swallows medications whole and drinks thin liquids without coughing or choking. Pt attempted to ambulate with therapy multiple times this shift and has not been successful. Pt is unable to maintain her balance in a sitting position without support behind her back. Pt can not bear her own weight when attempting to stand. FSBS results have been 187 and 133 today. 20 G peripheral IV in the LT AC is patent and SL. Bed safety alarm is on. Pt is on room air with sats. >90%. VSS. Call light within reach. Will continue to monitor.
[2020-09-09 21:12] LABS: POC Glucose,Bedside 160 (70-110)
[2020-09-10 04:00] VITALS: BP 142/71; PULSE 70; RESP 18; TEMP 37.1; O2SAT 95
[2020-09-10 04:43] VITALS: BMI 37.1
--- NOTE | 2020-09-10 04:55 | PC.NURSE ---
no acute changes since prior assessment, pt has rested well t/o shift, has remained on room air with O2 sats 90-95%, no complaints of SOA or chest pain, no complaints of pain this shift
[2020-09-10 06:26] LABS: POC Glucose,Bedside 165 (70-110)
[2020-09-10 08:00] VITALS: BP 150/60; PULSE 70; RESP 16; TEMP 36.8; O2SAT 95
--- NOTE | 2020-09-10 08:14 | P.PN_ITS ---
Internal Medicine - PN: Subj *Date: 09/10/20 *Time: 08:14 Interval history: Patient underwent PT eval yesterday. She was deemed appropriate for senior care level of care to rehabilitate from right humeral fracture. Care management team is currently working on finding a facility for patient to rehabilitate. This morning patient does not remember that she is at the hospital nor does she remember why she is here. Exam Vital signs and Labs for Last 24 Hours: Temp Pulse Resp BP Pulse Ox 98.2 F 70 16 142/71 H 95 09/10/20 08:00 09/10/20 08:00 09/10/20 08:00 09/10/20 04:00 09/10/20 08:00 Laboratory Results - last 24 hr 09/09/20 11:10: POC Glucose 187 H 09/09/20 15:41: POC Glucose 133 H 09/09/20 21:04: POC Glucose 160 H 09/10/20 06:19: POC Glucose 165 H I & O for Last 24 hours: Intake & Output 09/07/20 09/08/20 09/09/20 09/10/20 11:59 11:59 11:59 11:59 Intake Total 480 / 480 240 / 240 Balance 480 / 480 240 / 240 Weight 220 lb 208 lb 1 oz 209 lb 8 oz Microbiology Reports for the Last 24 Hours: Microbiology 09/09/20 14:25 Nasopharyngeal Coronavirus COVID-19 PCR - Final - Constitutional no acute distress - *Routine Respiratory Exam Present: CTA bilaterally - *Routine Cardiovascular Exam Present: RRR Assessment and Plan (1) Basal ganglia stroke Status: Acute Category: Medical Code(s): I63.9 - Cerebral infarction, unspecified (2) Fracture, humerus, anatomical neck Status: Acute Qualifiers: Fracture type: closed Laterality: right Fracture healing: with routine healing Category: Medical Code(s): S42.293A - Other displaced fracture of upper end of unspecified humerus, initial encounter for closed fracture (3) CAD (coronary artery disease) Status: Acute Qualifiers: Coronary Disease-Associated Artery/Lesion type: [place] artery [place] vs. transplanted heart: [place] heart Associated angina: with other forms of angina Qualified Code(s): I25.118 - Atherosclerotic heart disease of [place] coronary artery with other forms of angina pectoris Category: Medical Code(s): I25.10 - Atherosclerotic heart disease of [place] coronary artery without angina pectoris (4) Diabetes Status: Chronic Qualifiers: Diabetes mellitus type: type 2 Diabetes mellitus usp insulin use: without usp use Diabetes mellitus complication status: without complication Qualified Code(s): E11.9 - Type 2 diabetes mellitus without complications Category: Medical Code(s): E11.9 - Type 2 diabetes mellitus without complications (5) Parkinson disease Status: Acute Category: Medical Code(s): G20 - Parkinson's disease - Assessment and plan all Dx Assessment and Plan for all problems:: 1. Await acceptance to a rehabilitation facility 2. Continue home medicine since. I am going to decrease the patient's Depakote ER due to sedation
--- NOTE | 2020-09-10 08:17 | HMH.DCSUM ---
General - General Admission date:: 09/08/20 Discharge date: 09/10/20 HPI HPI: 70-year-old female presented to the emergency department early yesterday morning after a fall at home that left her with a right humeral fracture. This morning patient cannot tell me how she fell. Yesterday patient spent the majority of the day in the ER with a temperature range patient's return to home with outpatient services of home health along with medical equipment to allow her to stay at home. Patient already has a hospital bed. However once everything was arranged family still felt uncomfortable being able to take the patient home. While the patient denied hitting her head with her fall decision was made to proceed with CT scan of the head which did reveal an acute versus a subacute left caudate nucleus stroke. Patient did not seemingly have any identifiable neurologic defect in the emergency department other than altered level of consciousness which also seem to be associated with administration of morphine. Decision was made to admit the patient for PT and OT assessment with possible placement in custodial facility for short-term rehab. Hospital Course Hospital Course: Patient was admitted for assessment of appropriateness for custodial facility placement. She underwent PT, OT evaluations on September 09. Patient was deemed most appropriate for placement in custodial facility to rehabilitate due to her right humeral fracture, basal ganglia infarct, and complications from Parkinson's disease. Care management was consulted to assist with finding facility for the patient be accepted for rehabilitation. Once facility was found patient was discharged home. During hospitalization patient displayed poor memory of both the events that led to hospitalization and poor long-term memory. Her Depakote was decreased To 500 mg at night. Objective Vital signs: Temp Pulse Resp BP Pulse Ox 98.2 F 70 16 142/71 H 95 09/10/20 08:00 09/10/20 08:00 09/10/20 08:00 09/10/20 04:00 09/10/20 08:00 no acute distress, chronically ill appearing, somnolent - *Routine HEENT Exam Head: Present: normocephalic Eye: Present: EOMI, PERRL ENT: Present: mucous membranes moist - *Routine Neck Exam Present: supple - *Routine Respiratory Exam Present: CTA bilaterally - *Routine Cardiovascular Exam Present: RRR - *Routine Abdominal Exam Present: soft, normoactive bowel sounds. Absent: tenderness - *Routine Extremities Exam Comments: Right arm has remained in a sling Results Labs on day of discharge: Labs from last 24 hours 09/10/20 09/09/20 09/09/20 06:19 21:04 15:41 POC Glucose 165 H 160 H 133 H 09/09/20 11:10 POC Glucose 187 H DS: Diagnosis - Discharge Diagnosis (1) Basal ganglia stroke Status: Acute (2) Fracture, humerus, anatomical neck Status: Acute (3) CAD (coronary artery disease) Status: Acute (4) Diabetes Status: Chronic (5) Parkinson disease Status: Acute Discharge Plan - Patient Discharge Instructions ACTIVITY: Continue current activity DIET: continue same diet - Follow up Plan Disposition: er SNF Home Medications: Home Medications Medication Instructions Recorded Confirmed Type carbidopa 25 mg-levodopa 100 mg 1 tab PO QID 12/03/19 09/09/20 History tablet levothyroxine 100 mcg capsule 100 mcg PO DAILY 12/03/19 09/08/20 History metformin 500 mg tablet 500 mg PO DAILY 12/03/19 09/08/20 History divalproex 500 mg tablet,extended 1,000 mg PO HS tab 03/20/20 09/08/20 History release 24 hr Rivaroxaban [Xarelto 20mg Tablet*] 20 mg PO QPMWM 08/08/20 09/09/20 History carvediloL [Carvedilol 6.25mg Tab] 6.25 mg PO BID 08/08/20 09/08/20 History Amiodarone HCl 200 mg PO DAILY 09/09/20 09/09/20 History Hydrocodone/Acetaminophen [Jal 0.5 tab PO Q6H PRN 09/09/20 09/09/20 History 5-325 Tablet] Hydrocod/Acet 5/325 mg [Jal 1 tab
[2020-09-10 12:00] VITALS: BP 154/68; PULSE 74; RESP 20; TEMP 36.8; O2SAT 98
[2020-09-10 12:26] LABS: POC Glucose,Bedside 215 (70-110)
--- NOTE | 2020-09-10 13:24 | PC.NURSE ---
Called report to Taylor Franz @ [facility] @ [phone]. Made aware of follow-up appointment w/ Dr. Blas on 09/16 @ [phone]. Verbalized understanding, no further questions. [facility] notified of need for transfer.
--- NOTE | 2020-09-10 14:58 | PC.NURSE ---
[id number] - Contacted [facility] and spoke w/ Bernie, states they are down a truck at this time and will be up to garbage pick up worker pt HOANG.
== END 2020-09-10 15:55 ==
LOC: ER 15:37 → 2ND 16:05
PROVIDERS: Admitting Provider Family Medicine; Emergency Provider Emergency Medicine; PCP Family Medicine; Visit Provider Family Medicine
DX: S42.291A Other displaced fracture of upper end of right humerus, initial encounter for closed fracture (principal); I63.81 Other cerebral infarction due to occlusion or stenosis of small artery; E03.9 Hypothyroidism, unspecified; I25.10 Atherosclerotic heart disease of native coronary artery without angina pectoris; W01.0XXA Fall on same level from slipping, tripping and stumbling without subsequent striking against object, initial encounter; Y92.019 Unspecified place in single-family (private) house as the place of occurrence of the external cause; E11.9 Type 2 diabetes mellitus without complications; I12.9 Hypertensive chronic kidney disease with stage 1 through stage 4 chronic kidney disease, or unspecified chronic kidney disease; N18.9 Chronic kidney disease, unspecified; E78.5 Hyperlipidemia, unspecified; Z88.8 Allergy status to other drugs, medicaments and biological substances; Z79.01 Long term (current) use of anticoagulants; Z79.899 Other long term (current) drug therapy; G20 Parkinson's disease; Z95.0 Presence of cardiac pacemaker; Z95.5 Presence of coronary angioplasty implant and graft; Z87.891 Personal history of nicotine dependence
CPT/HCPCS: 36415; 70450; 72110; 73000; 73030; 80048; 80165; 82962; 85025; 86328; 96365; 96375; 96376; 97163; 97165; 97530; 99284; G0378; J2405; U0003

== ENCOUNTER → 2020-10-06 13:59 | Outpatient (CLI) | payer MEDICARE, SELFPAY ==
--- NOTE | 2020-10-06 14:04 | XR_ITS ---
PROCEDURE: XR SHOULDER RT MIN 2V CLINICAL INDICATION: right shoulder fracture COMPARISON: CR SHOU3R [id number] from 09/21/2017 CR XR SHOULDER RT MIN 2V from 09/08/2020 FINDINGS: Displaced proximal humeral fracture once again noted. There is medial displacement of the distal fracture fragment. The humeral head remains located. There is mild impaction of the fracture fragments. Overlying callus formation developing laterally. There are atelectatic changes in the right perihilar region. IMPRESSION: Healing displaced proximal humeral fracture. Dictated by: John Red MD 10/06/2020 18:33 John Red MD in [place] 10/06/2020 18:33
== END ==
PROVIDERS: PCP Family Medicine; Visit Provider Orthopaedic Surgery
DX: S49.91XA Unspecified injury of right shoulder and upper arm, initial encounter (principal)
CPT/HCPCS: 73030

== ENCOUNTER → 2020-11-18 13:11 | Outpatient (CLI) | payer MEDICARE, SELFPAY ==
--- NOTE | 2020-11-18 13:20 | XR_ITS ---
PROCEDURE: XR SHOULDER RT MIN 2V CLINICAL INDICATION: right neck of humerus fx COMPARISON: CR SHOU3R [id number] from 09/21/2017 CR XR SHOULDER RT MIN 2V from 09/08/2020 CR XR SHOULDER RT MIN 2V from 10/06/2020 FINDINGS: There is a healing displaced right humeral neck fracture. There is medial and anterior displacement of the distal fracture fragment as before. Callus formation is developing both laterally and medially. The humeral head is located. Osteoarthritic changes the acromioclavicular joint. Atelectatic changes are present in the right lower lobe IMPRESSION: Healing displaced right humeral neck fracture Dictated by: John Red MD 11/18/2020 16:37 John Red MD in [place] 11/18/2020 16:37
== END ==
PROVIDERS: PCP Family Medicine; Visit Provider Orthopaedic Surgery
DX: S42.211D Unspecified displaced fracture of surgical neck of right humerus, subsequent encounter for fracture with routine healing (principal)
CPT/HCPCS: 73030

== ENCOUNTER 2021-01-14 01:14 | Emergency (ER) | payer MEDICARE, SELFPAY ==
[2021-01-14] VITALS (9 sets, daily range): BP systolic 113–151; BP diastolic 48–108; PULSE 62–81; RESP 14–20; TEMP 36.5–36.6; O2SAT 93–98; BMI 36.5
--- NOTE | 2021-01-14 01:08 | ECG_ITS ---
APPROVED REPORT Exam: Resting ECG HR:72 bpm ECG Measurements Heart Rate 72 AXES SD 100 P 22 QRSd 176 QRS -74 QT 460 T 100 QTc 503 Conclusion Electronic ventricular pacemaker Electronically signed by : Pérez Xiong, 01/15/2021 19:12:04
--- NOTE | 2021-01-14 01:25 | XR_ITS ---
PROCEDURE: XR CHEST PORTABLE CLINICAL HISTORY: chest pain COMPARISON: CR CXR1 CHEST-PORTABLE from 05/05/2017 CR CXR1 CHEST-PORTABLE from 05/08/2017 DX XR CHEST 2V from 11/28/2019 CR XR SHOULDER RT MIN 2V from 09/08/2020 FINDINGS: Bipolar pacemaker remains in place from left subclavian approach. Normal heart size. The right hemidiaphragm is elevated with right basilar atelectasis. The diaphragmatic elevation is somewhat greater compared to the previous study. There is an old right humeral neck fracture No acute bony abnormalities. IMPRESSION: Elevated right hemidiaphragm with right basilar atelectasis Dictated by: John Red MD 01/14/2021 05:12 John Red MD in [facility] 01/14/2021 05:12
--- NOTE | 2021-01-14 01:25 | CT_ITS ---
PROCEDURE: CT ABDOMEN PELVIS W CON CLINICAL INDICATION: epigastric pain Abdominal pain, mid epigastric pain COMPARISON: CT ABDPELW CT ABD PELVIS W/ CONTRAST from 04/30/2015 CR XR LUMBAR SPINE MIN 4V from 09/08/2020 CR XR CHEST PORTABLE from 01/14/2021 TECHNIQUE: IV Contrast: 75ML Isovue 370 Oral Contrast None Axial images obtained with sagittal and coronal reformats. All CT scans at the facility use one or more dose reduction, viz: automated exposure control, ma/kV adjustment per patient size (including targeted exams where dose is matched to indication, i.e. head), or iterative reconstruction technique. FINDINGS: LOWER THORAX: Elevated right hemidiaphragm with atelectatic changes in the right lung base. Artifact present cardiac pacemaker device. 14 mm isodense nodule anterior to the ascending aorta consistent with a mediastinal lymph node ABDOMEN & PELVIS: Prior cholecystectomy. The liver, spleen, adrenal glands, have an unremarkable appearance. There is pancreatic atrophy. There is a small calcific density along the lateral aspect of the pancreatic head which appears to be anterior to the common bile duct. There is bilateral renal parenchymal scarring. 5 mm stone is present in the lower pole of the left kidney. No hydronephrosis. No ureteral calculi. No intestinal obstruction or free air. There is a moderate amount of retained colonic feces with colonic diverticulosis but no evidence of diverticulitis. No evidence of appendicitis. There is redundant sigmoid colon. There is mild wedging of the L1 vertebral body which has developed since the older CT scan did not appear to be present on lumbar spine images 09/08/2020. The loss of height is approximately 25 percent. IMPRESSION: 1. 5 mm nonobstructing stone lower pole left kidney. 2. Moderate amount of retained colonic feces. 3. Elevated right hemidiaphragm with right basilar atelectasis. 4. Mild compression fracture of L1 without retropulsion which has developed since 09/08/2020. 5. Other nonacute findings as described above. Dictated by: John Red MD 01/14/2021 06:20 John Red MD in [facility] 01/14/2021 06:20
[2021-01-14 01:38] LABS: Basophils % 0.3 % (0.1-2.0); Eosinophils # 0.1 K/mm3 (0.0-0.4); Eosinophils % 1.4 % (0.1-12.0); Hematocrit 32.4 % (37.0-47.0); Hemoglobin 10.4 g/dL (12.2-16.2); Lymphocytes # 1.8 K/mm3 (0.7-4.5); Lymphocytes % 34.2 % (10-50); Mean Corpuscular HGB Conc 32.2 g/dL (31.8-35.4); Mean Corpuscular Hemoglobin 29.7 pg (27.0-31.2); Mean Corpuscular Volume 92.3 fl (81-99); Mean Platelet Volume 7.9 fl (7.4-10.4); Monocytes # 0.4 K/mm3 (0.1-1.0); Monocytes % 7.2 % (1.7-9.3); Neutrophils # 2.9 K/mm3 (1.8-7.8); Neutrophils % 56.9 % (37.0-80.0); Platelet Count 171 K/mm3 (142-424); Red Blood Count 3.51 M/mm3 (4.20-5.40); White Blood Count 5.1 K/mm3 (4.8-10.8)
[2021-01-14 01:40] LABS: Amylase 31 U/L (30-110); Anion Gap 7.9 mEq/L (5-15); Blood Urea Nitrogen 22 mg/dl (7-17); Calcium 9.1 mg/dl (8.4-10.2); Carbon Dioxide 32 mmol/L (22.0-30.0); Chloride 101 mmol/L (98-107); Creatinine Clearance Estimated 73 mL/min (50-200); Estimated Glomerular Filt Rate 44 ml/min (>60); GFR (African American) 53 ML/MIN (>60); Glucose 173 mg/dl (74-100); Lipase 27 U/L (23-300); Potassium 3.9 mmoL/L (3.5-5.1); Sodium 137 mmol/L (136-145)
[2021-01-14 01:56] LABS: Valproic Acid, (Depakene) 79.8 ug/ml (50-100)
[2021-01-14 01:59] LABS: Troponin I < 0.01 ng/ml (0.00-0.034)
[2021-01-14 04:26] LABS: Troponin I < 0.01 ng/ml (0.00-0.034)
--- NOTE | 2021-01-14 04:55 | HMH.EDCP ---
ED Disposition Clinical Impression: Cardiac pacemaker Chest pain Qualifiers: Chest pain type: precordial pain Qualified Code(s): R07.2 - Precordial pain Chronic renal insufficiency Qualifiers: Chronic kidney disease stage: unspecified stage Qualified Code(s): N18.9 - Chronic kidney disease, unspecified Disposition: Home, Self-Care Condition on Discharge: Good Instructions: DI for Atypical Chest Pain Additional Instructions: resume orders at [facility] Referrals: Pérez Sethi MD [Primary Care Provider] - - Critical Care Critical Care Time: No Attestation: On 01/14/21, the high probability of a clinically significant, sudden or life threatening deterioration of the following system(s) required my full and direct attention, intervention and personal management. The time I documented below is in addition to time spent performing reported procedures but includes the following listed in this critical care notation. Medical Decision Making - Medical Records Medical records reviewed: Yes: I reviewed the patient's medical records. - [facility] Inquiry Pt receiving controlled substance: No Vital Signs: 01/14/21 01:18 01/14/21 01:31 01/14/21 02:01 Temperature 97.7 F Temperature Source Oral Pulse Rate 70 70 Pulse Rate [Right Brachial] 81 Respiratory Rate 14 20 17 Blood Pressure 149/69 H 138/54 L Blood Pressure [Left Arm] 151/108 H Blood Pressure Mean 95 82 Blood Pressure Mean [Left Arm] 122 Blood Pressure Source [Left Arm] Automatic Cuff Blood Pressure Position [Left Arm] Sitting 02 Sat by Pulse Oximetry 97 98 95 Oxygen Delivery Method Room Air 01/14/21 03:31 Temperature Temperature Source Pulse Rate 70 Pulse Rate [Right Brachial] Respiratory Rate Blood Pressure 128/48 L Blood Pressure [Left Arm] Blood Pressure Mean 66 Blood Pressure Mean [Left Arm] Blood Pressure Source [Left Arm] Blood Pressure Position [Left Arm] 02 Sat by Pulse Oximetry 94 L Oxygen Delivery Method - Lab Data Lab results reviewed: Yes: I reviewed the patient's lab results. Lab Results 01/14/21 01:20: WBC 5.1, RBC 3.51 L, Hgb 10.4 L, Hct 32.4 L, MCV 92.3, MCH 29.7, MCHC 32.2, RDW 16.0, Plt Count 171, MPV 7.9, Neut % (Auto) 56.9, Lymph % (Auto) 34.2, [place] % (Auto) 7.2, Eos % (Auto) 1.4, Baso % (Auto) 0.3, Neut # (Auto) 2.9, Lymph # (Auto) 1.8, [place] # (Auto) 0.4, Eos # (Auto) 0.1, Baso # (Auto) 0.0 01/14/21 01:20: Sodium 137, Potassium 3.9, Chloride 101, Carbon Dioxide 32 H, Anion Gap 7.9, BUN 22 H, Creatinine 1.20 H, Estimated Creat Clear 73, Estimated GFR 44 L, Est GFR ( Amer) 53 L, Glucose 173 H, Calcium 9.1, Troponin I < 0.01, Amylase 31, Lipase 27 01/14/21 01:20: Total Valproic Acid 79.8 01/14/21 03:58: Troponin I < 0.01 Result diagrams: 01/14/21 01:20 01/14/21 01:20 Orders (Tests/Meds): ED MEDICATIONS Generic Name Dose Route Start Last Admin Trade Name Freq PRN Reason Stop Dose Admin Sodium Chloride 1,000 mls @ 999 mls/hr 01/14/21 03:35 01/14/21 04:49 Sod Chlor 0.9% 1000ml Bag IV 01/14/21 04:35 999 mls/hr .Q1H1M HELGA Administration Discontinued Medications Generic Name Dose Route Start Last Admin Trade Name Freq PRN Reason Stop Dose Admin Iopamidol 75 ml 01/14/21 02:31 01/14/21 02:33 Iopamidol-370 (76%);100ml Bottle IV 01/14/21 02:32 75 ml ONCE ONE Administration Sodium Chloride 10 ml 01/14/21 02:31 01/14/21 02:32 Sodium Chloride 0.9% 10ml Syr (Rad Only) IV 01/14/21 02:32 10 ml ONCE ONE Administration ORDERS Category Date Time Status CT abdomen pelvis w con Stat Cat Scan 01/14/21 01:25 Taken XR chest portable Stat Exams 01/14/21 01:25 Taken Troponin I Q3H Lab 01/14/21 07:30 Ordered - Radiology Data #1 Image(s): Chest Image Reviewed: Yes I reviewed the patient's radiology image Preliminary Findings: Normal/NAD - CT Data CT Scan: Abdomen, Pelvis Time Received: 04:[address] Reviewed: Yes: I have viewed the ra
== END 2021-01-14 06:26 | disposition home or self-care (01) ==
PROVIDERS: Emergency Provider Emergency Medicine; PCP Family Medicine
DX: R07.2 Precordial pain (principal); Z95.0 Presence of cardiac pacemaker; N18.9 Chronic kidney disease, unspecified; I48.91 Unspecified atrial fibrillation; I25.10 Atherosclerotic heart disease of native coronary artery without angina pectoris; E78.5 Hyperlipidemia, unspecified; I10 Essential (primary) hypertension; Z87.891 Personal history of nicotine dependence
CPT/HCPCS: 71045; 74177; 80048; 80164; 82150; 83690; 84484; 85025; 93005; 99283; Q9967

== ENCOUNTER → 2021-01-29 14:11 | Outpatient (CLI) | payer MEDICARE, MEDICAID, SELFPAY | PROVIDERS: PCP Family Medicine; Visit Provider Ophthalmology | DX: Z01.812 Encounter for preprocedural laboratory examination (principal); Z11.52 Encounter for screening for COVID-19 | CPT/HCPCS: U0003 ==

== ENCOUNTER 2021-02-02 11:08 | Day surgery (SDC) | payer MEDICARE, MEDICAID, SELFPAY ==
[2021-01-27 13:23] VITALS: BMI 37.2
[2021-02-02] VITALS (7 sets, daily range): BP systolic 124–151; BP diastolic 56–73; PULSE 69–79; RESP 16–18; TEMP 36.2–36.3; O2SAT 92–100
[2021-02-02 11:46] LABS: POC Glucose,Bedside 123 (70-110)
== END 2021-02-02 12:33 | disposition home or self-care (01) ==
PROVIDERS: PCP Family Medicine; Visit Provider Ophthalmology
DX: H25.812 Combined forms of age-related cataract, left eye (principal); H02.834 Dermatochalasis of left upper eyelid; H02.831 Dermatochalasis of right upper eyelid; Z88.6 Allergy status to analgesic agent; E11.9 Type 2 diabetes mellitus without complications; F41.9 Anxiety disorder, unspecified; H26.8 Other specified cataract
CPT/HCPCS: 66982; 82962; V2632

== ENCOUNTER → 2021-02-04 16:23 | Outpatient (CLI) | payer MEDICARE, MEDICAID, SELFPAY ==
[2021-02-04 16:50] LABS: Hemoglobin A1C 6.3 % (4.0-6.0)
== END ==
PROVIDERS: Visit Provider Family Medicine
DX: E11.9 Type 2 diabetes mellitus without complications (principal)
CPT/HCPCS: 83036

== ENCOUNTER 2021-08-04 09:57 | Observation (INO) | payer MEDICARE, MEDICAID, SELFPAY ==
[2021-08-04] VITALS (11 sets, daily range): BP systolic 118–166; BP diastolic 48–95; PULSE 52–75; RESP 16–20; TEMP 36.9–37.7; O2SAT 95–98; BMI 27.4; BMI 34.4
--- NOTE | 2021-08-04 10:16 | XR_ITS ---
PROCEDURE: XR CHEST PORTABLE CLINICAL HISTORY: covid house COMPARISON: CR CXR1 CHEST-PORTABLE from 05/08/2017 DX XR CHEST 2V from 11/28/2019 CR XR CHEST PORTABLE from 01/14/2021 FINDINGS: Unremarkable heart size. Bipolar pacemaker is present from left subclavian approach. Right basilar atelectasis noted with elevated right hemidiaphragm. There is an old right humeral neck fracture. IMPRESSION: No change no acute finding Dictated by: John Red MD 08/04/2021 11:41 John Red MD in [place] 08/04/2021 11:41
[2021-08-04 12:50] LABS: Coronavirus 19, PCR Not Detected (NotDetected); Influenza A, PCR Not Detected (NotDetected); Influenza B, PCR Not Detected (NotDetected)
--- NOTE | 2021-08-04 12:56 | HMH.EDGENADL ---
ED Disposition Clinical Impression: Physical deconditioning, Viral respiratory illness Disposition: Admitted as Observation Condition on Discharge: Good Time of Disposition: 12:00 - Critical Care Critical Care Time: No Attestation: On 08/04/21, the high probability of a clinically significant, sudden or life threatening deterioration of the following system(s) required my full and direct attention, intervention and personal management. The time I documented below is in addition to time spent performing reported procedures but includes the following listed in this critical care notation. Medical Decision Making - [facility] Inquiry Pt receiving controlled substance: No Vital Signs: 08/04/21 10:00 08/04/21 11:01 08/04/21 11:31 Temperature 99.9 F H Temperature Source Oral Pulse Rate 70 72 Pulse Rate [Right] 70 Respiratory Rate 16 Blood Pressure 118/68 154/67 H Blood Pressure [Right Arm] 154/67 H Blood Pressure Mean 87 78 Blood Pressure Mean [Right Arm] 96 Blood Pressure Source Blood Pressure Source [Right Arm] Automatic Cuff Blood Pressure Position Blood Pressure Position [Right Arm] Sitting 02 Sat by Pulse Oximetry 96 96 97 Oxygen Delivery Method Room Air 08/04/21 11:41 08/04/21 12:01 08/04/21 12:31 Temperature Temperature Source Pulse Rate 52 L 70 71 Pulse Rate [Right] Respiratory Rate 16 20 Blood Pressure 156/64 H 148/84 H 166/71 H Blood Pressure [Right Arm] Blood Pressure Mean 90 83 Blood Pressure Mean [Right Arm] Blood Pressure Source Automatic Cuff Blood Pressure Source [Right Arm] Blood Pressure Position Sitting Blood Pressure Position [Right Arm] 02 Sat by Pulse Oximetry 97 96 97 Oxygen Delivery Method Room Air 08/04/21 14:38 08/04/21 14:39 08/04/21 16:00 Temperature 98.4 F Temperature Source Oral Pulse Rate 75 75 Pulse Rate [Right] 70 Respiratory Rate 16 20 Blood Pressure 124/64 124/48 L Blood Pressure [Right Arm] 135/49 L Blood Pressure Mean 73 Blood Pressure Mean [Right Arm] 77 Blood Pressure Source Automatic Cuff Blood Pressure Source [Right Arm] Automatic Cuff Blood Pressure Position Sitting Blood Pressure Position [Right Arm] Supine 02 Sat by Pulse Oximetry 98 95 97 Oxygen Delivery Method Room Air Room Air - Lab Data Lab Results 08/04/21 10:55: SARS-CoV-2 (PCR) Not detected, Influenza A Untype (PCR) Not detected, Influenza Type B (PCR) Not detected 08/04/21 12:54: WBC 7.1, RBC 3.83 L, Hgb 11.4 L, Hct 35.0 L, MCV 91.4, MCH 29.8, MCHC 32.6, RDW 14.7, Plt Count 175, MPV 9.2, Neut % (Auto) 68.4, Lymph % (Auto) 20.8, [place] % (Auto) 8.5, Eos % (Auto) 1.3, Baso % (Auto) 1.0, Neut # (Auto) 4.9, Lymph # (Auto) 1.5, [place] # (Auto) 0.6, Eos # (Auto) 0.1, Baso # (Auto) 0.1 08/04/21 12:54: Sodium 140, Potassium 4.1, Chloride 105, Carbon Dioxide 29, Anion Gap 10.1, BUN 19 H, Creatinine 1.20 H, Estimated Creat Clear 49, Estimated GFR 44 L, Est GFR ( Amer) 53 L, Glucose 107 H, Calcium 9.4, Magnesium 1.4 L, Total Bilirubin 0.5, AST 17, ALT 10 L, Alkaline Phosphatase 77, Total Protein 7.0, Albumin 3.6, Globulin 3.4 H, Albumin/Globulin Ratio 1.1 Result diagrams: 08/04/21 12:54 08/04/21 12:54 Orders (Tests/Meds): ED MEDICATIONS Generic Name Dose Route Start Last Admin Trade Name Freq PRN Reason Stop Dose Admin Acetaminophen 650 mg 08/04/21 16:34 Acetaminophen 325mg Tab PO 09/03/21 16:33 Q4HP PRN Fever or Mild Pain Al Hydrox/Mg Hydrox/Simethicone 30 ml 08/04/21 16:34 Aluminum/Magnesium/Simethicone 30ml Udc PO 09/03/21 16:33 QIDP PRN Dyspepsia Amiodarone HCl 200 mg 08/05/21 09:00 Amiodarone 200mg Tablet PO 09/04/21 08:59 DAILY HELGA Carbidopa/Levodopa 1 each 08/04/21 21:00 08/04/21 20:50 Carbidopa/Levodopa 25/100mg Tablet PO 09/03/21 20:59 1 each QID HELGA Administration Carvedilol 6.25 mg 08/04/21 21:00 08/04/21 20:50 Carvedilol 6.25mg Tablet P
[2021-08-04 13:04] LABS: Basophils # 0.1 K/mm3 (0-0.2); Eosinophils # 0.1 K/mm3 (0.0-0.4); Eosinophils % 1.3 % (0.1-12.0); Hemoglobin 11.4 g/dL (12.2-16.2); Lymphocytes # 1.5 K/mm3 (0.7-4.5); Lymphocytes % 20.8 % (10-50); Mean Corpuscular HGB Conc 32.6 g/dL (31.8-35.4); Mean Corpuscular Hemoglobin 29.8 pg (27.0-31.2); Mean Corpuscular Volume 91.4 fl (81-99); Mean Platelet Volume 9.2 fl (7.4-10.4); Monocytes # 0.6 K/mm3 (0.1-1.0); Monocytes % 8.5 % (1.7-9.3); Neutrophils # 4.9 K/mm3 (1.8-7.8); Neutrophils % 68.4 % (37.0-80.0); Platelet Count 175 K/mm3 (142-424); Red Blood Count 3.83 M/mm3 (4.20-5.40); Red Cell Distribution Width 14.7 % (11.5-17.5); White Blood Count 7.1 K/mm3 (4.8-10.8)
[2021-08-04 13:26] LABS: Chloride 105 mmol/L (98-107); Sodium 140 mmol/L (136-145)
[2021-08-04 13:27] LABS: Potassium 4.1 mmoL/L (3.5-5.1)
[2021-08-04 13:29] LABS: Alanine Aminotransferase 10 U/L (12-78); Albumin Level 3.6 g/dl (3.5-5.0); Albumin/Globulin Ratio 1.1 (1.1-1.8); Alkaline Phosphatase 77 U/L (38-126); Anion Gap 10.1 mEq/L (5-15); Aspartate Amino Transferase 17 U/L (14-36); Bilirubin,Total 0.5 mg/dl (0.2-1.3); Blood Urea Nitrogen 19 mg/dl (7-17); Calcium 9.4 mg/dl (8.4-10.2); Carbon Dioxide 29 mmol/L (22.0-30.0); Creatinine Clearance Estimated 49 mL/min (50-200); Estimated Glomerular Filt Rate 44 ml/min (>60); GFR (African American) 53 ML/MIN (>60); Globulin 3.4 g/dL (1.3-3.2); Glucose 107 mg/dl (74-100)
[2021-08-04 13:30] LABS: Magnesium 1.4 mg/dl (1.6-2.3)
--- NOTE | 2021-08-04 14:10 | PC.NURSE ---
speaking with DR. Sethi
--- NOTE | 2021-08-04 14:23 | PC.NURSE ---
[facility] called and spoke with care management about possible placement for patient today. If no luck, possible admission for placement.
--- NOTE | 2021-08-04 14:35 | SW/DCPLANNER ---
Addendum entered by Sarah Diaz 08/05/21 07:24: This patient has been accepted to [facility] per [facility]. Original Note: I received a call from Dr Sethi regarding discharge plans for this patient. I called and spoke with patients son (Maurice) regarding discharge plans. Maurice stated that this patient currently needs skilled rehab once medically stable for discharge. Maurice is interested in SNF level of care or Medicaid pending. I informed Maurice that placement can be a lengthy process: if patient does not have a medical reason to be admitted then patient may need to return home unless I can find placement for patient. Son stated that patient would need an ambulance transport back home if she returns. I faxed patient information to [facility] and [facility] stated that patient owes a huge bill and they can not accept this patient due to this reason. Maurice has requested that patient information be faxed to: [facility], [facility] and [facility] in [place]. I will continue to follow up with facilities, Dr Sethi, ED staff and patients son.
--- NOTE | 2021-08-04 14:51 | PC.NURSE ---
jamie from care management called states she has spoken with pt son and dr. kendrick r/t she has began paperwork for assisted placement but this process may take 1 to 2 days. notified ER
--- NOTE | 2021-08-04 15:02 | PC.NURSE ---
spoke with dr. kendrick at this time, he is going to contact pts son to speak with him about pts care and then will contact ER back.
--- NOTE | 2021-08-04 15:39 | PC.NURSE ---
Called report to [facility], advised she would send someone down to get the patient once the room was clean.
--- NOTE | 2021-08-04 16:00 | PC.NURSE ---
pt was admitted to med surg room 209 via stretcher from the ED @ 1600. Pt is unkept and has an active case of bed bugs. Bed bug obtained, put in specimen container, and sent to lab for verification. Lab confirmed that specimen is a bed bug. Pt's clothes double bagged, labeled, and given to SHERI Navarro) for placement in the barn for decontamination period. Pt placed in shower via shower chair and given a bath. SHERI Navarro) cleaned the room again once pt bathed. Blue sticky mat has been placed outside pt's room. Pt has excoriation in abd fold, a stage II on left buttock (0.5 x0.5 ) and a stage II on right buttock (2 x0.5 ). Pt gave photo consent and pictures obtained for the chart. ED notified of bed bug infestation.
[2021-08-04 17:05] LABS: POC Glucose,Bedside 163 (70-110)
--- NOTE | 2021-08-04 18:38 | PC.WOUNDNOTE ---
abdominal wall excoriation Left buttocks 0.5 in x 0.5 in--stage 2 R buttocks 2 in x 0.5 in--stage 2
[2021-08-04 19:31] LABS: Appearance,Urine CLEAR (Clear); Bilirubin,Urine Negative (Negative); Blood, Urine Negative (Negative); Color,Urine YELLOW (Yellow); Glucose,Urine (UA) Negative (Negative); Ketones,Urine Negative (Negative); Leukocyte Esterase,Urine 1+ (Negative); Microscopic, Urine URINE MICROSCOPIC (MICROSCOPIC); Nitrate,Urine POSITIVE (Negative); Protein,Urine Negative (Negative); Specific Gravity, Urine >= 1.030 (1.005-1.030)
[2021-08-04 19:45] LABS: Bacteria,Urine 4+ /lpf; Squamous Epithelial Cell,Urine Occasional #/hpf (0-5)
[2021-08-04 20:21] LABS: POC Glucose,Bedside 137 (70-110)
[2021-08-05] VITALS: BP 156/86; PULSE 82; RESP 20; TEMP 36.6; O2SAT 95
[2021-08-05 04:00] VITALS: BP 150/63; PULSE 70; RESP 20; TEMP 37.4; O2SAT 95
[2021-08-05 05:04] VITALS: BMI 36.1
--- NOTE | 2021-08-05 07:28 | P.CONPHA_ITS ---
[facility] Pharmacy VTE Monitoring - Patient Demographics Admission date: 08/04/21 Report Date: 08/05/21 Time: 07:28 Allergies/Adverse Reactions: Patient Allergies oxycodone [OXYCODONE] Allergy (Severe, Verified 02/23/21 10:59) MOUTH AND THROAT SWELL quetiapine [From SEROQUEL] Allergy (Unknown, Verified 02/23/21 10:59) Unknown allergy reaction Height: 1.6 m Weight: 92.533 kg Patient Problems: Current Active Problems Physical deconditioning (Acute) Viral respiratory illness (Acute) - VTE Risk Labs: VTE Related Lab Results Hgb 11.4 g/dL (12.2-16.2) L 08/04/21 12:54 Hct 35.0 % (37.0-47.0) L 08/04/21 12:54 Plt Count 175 K/mm3 (142-424) 08/04/21 12:54 BUN 19 mg/dl (7-17) H 08/04/21 12:54 Creatinine 1.20 mg/dl (0.52-1.04) H 08/04/21 12:54 Estimated Creat Clear 49 mL/min (50-200) 08/04/21 12:54 Was VTE Risk Assessment Performed: Yes VTE Score: 6 VTE Risk Level: Moderate Risk - Prophylaxis VTE Prophylaxis Ordered?: Yes Types of VTE Prophylaxis: TEDS Knee High, Pharmacological Location of Applied Device: Bilateral Lower Extremeties Pharmacologic Type: Other (XARELTO)
[2021-08-05 07:36] LABS: Anion Gap 11.2 mEq/L (5-15); Blood Urea Nitrogen 18 mg/dl (7-17); Calcium 8.8 mg/dl (8.4-10.2); Carbon Dioxide 27 mmol/L (22.0-30.0); Chloride 105 mmol/L (98-107); Creatinine Clearance Estimated 61 mL/min (50-200); Estimated Glomerular Filt Rate 44 ml/min (>60); GFR (African American) 53 ML/MIN (>60); Glucose 111 mg/dl (74-100); Magnesium 1.4 mg/dl (1.6-2.3); Potassium 4.2 mmoL/L (3.5-5.1); Sodium 139 mmol/L (136-145)
--- NOTE | 2021-08-05 07:37 | HMH.HPDC ---
General - General Admission date:: 08/04/21 Discharge date: 08/05/21 *Admission Date: 08/04/21 *Chief complaint: Weakness *History of present illness: 71-year-old female was brought to the emergency department via ambulance due to profound weakness at home. Patient is not really able to provide much history. I spoke with her son on the phone and patient has had a gradual decline over the last 2 months in regards to physical conditioning. She had been able to ambulate through the home and had recently progressed to the point where she was requiring a wheelchair within the home and total assist for transfers. This was complicated by the fact that multiple family members within the home had COVID-19 and everyone was quarantining giving her less help at home. Patient had URI symptoms and was brought to the emergency department. Covid testing was negative. No other significant abnormalities were found and placement was sought for the patient for rehabilitation. Patient required admission as she was unable to return home. [facility] History I have reviewed the patient's past medical history: Yes Medical History: Reports:: Arrhythmia, Atrial Fibrillation, Cancer, Coronary Artery Disease, Cerebrovascular Accident, Diabetes Mellitus Type 2, Hyperlipidemia, Hypertension, Internal Pacemaker, Renal Disease Denies:: Diabetes Mellitus Type 1, MRSA, Seizures *Have you ever received a pneumonia vaccine?: No *Have you received a flu vaccine this season?: No Other Medical History: Reports: Hypothyroidism, Thyroid Disease Laterality Cases: Left: Arthroscopy Knee Other Surgeries: Yes: Cardiac Catheterization, Coronary Stent, Pacemaker Amputation: No Fractures: Yes (thumb and right humerus) - *Social History Smoking Status: Current every day smoker Tobacco Type: cigarettes # Packs/Day (cigarettes): 1 Alcohol Intake: never Substance Use Type: denies use *Occupational Status:: retired Housing: house Household Members: family *Travel in the last 8 weeks: None Family Hx:: Coronary Artery Disease Review of Systems - Constitutional Reports lack of energy, Denies anorexia, Denies body ache(s) - Eyes Denies loss of vision - ENT Denies difficulty swallowing - *Cardiovascular Denies chest pain at rest, Denies chest pain with activity - *Respiratory Denies chest congestion, Denies cough - *Gastrointestinal Denies heartburn - *Genitourinary Denies painful urination - *Musculoskeletal Reports joint pain - Integumentary/Breasts Denies bleeding lesions - *Neurologic Reports abnormal hearing - Psychiatric Denies abnormal sleep pattern - Endocrine Denies excessive sweating Exam Vital signs and Labs for Last 24 Hours: Temp Pulse Resp BP Pulse Ox 99.4 F 70 20 150/63 H 95 08/05/21 04:00 08/05/21 04:00 08/05/21 04:00 08/05/21 04:00 08/05/21 04:00 Laboratory Results - last 24 hr 08/04/21 10:55: SARS-CoV-2 (PCR) Not detected, Influenza A Untype (PCR) Not detected, Influenza Type B (PCR) Not detected 08/04/21 12:54: WBC 7.1, RBC 3.83 L, Hgb 11.4 L, Hct 35.0 L, MCV 91.4, MCH 29.8, MCHC 32.6, RDW 14.7, Plt Count 175, MPV 9.2, Neut % (Auto) 68.4, Lymph % (Auto) 20.8, Mckean % (Auto) 8.5, Eos % (Auto) 1.3, Baso % (Auto) 1.0, Neut # (Auto) 4.9, Lymph # (Auto) 1.5, Mckean # (Auto) 0.6, Eos # (Auto) 0.1, Baso # (Auto) 0.1 08/04/21 12:54: Sodium 140, Potassium 4.1, Chloride 105, Carbon Dioxide 29, Anion Gap 10.1, BUN 19 H, Creatinine 1.20 H, Estimated Creat Clear 49, Estimated GFR 44 L, Est GFR ( Amer) 53 L, Glucose 107 H, Calcium 9.4, Magnesium 1.4 L, Total Bilirubin 0.5, AST 17, ALT 10 L, Alkaline Phosphatase 77, Total Protein 7.0, Albumin 3.6, Globulin 3.4 H, Albumin/Globulin Ratio 1.1 08/04/21 16:53: POC Glucose 163 H 08/04/21 18:35: Urine Color Yellow, Urine Appearance Clear, Urine pH 6.0, Ur Specific [place] >= 1.030, Urine Protein Negative, Urine Glucose (UA) Negative, Urine Ketones Negative, Urine Blood Negative, Urine Nitra
[2021-08-05 08:00] VITALS: BP 165/60; PULSE 70; RESP 20; TEMP 37.7; O2SAT 95
[2021-08-05 08:06] LABS: Thyroid Stimulating Hormone 1.33 uIU/mL (0.465-4.68)
[2021-08-05 08:24] LABS: Vitamin B12 279 pg/mL (239-931)
[2021-08-05 08:26] LABS: Hemoglobin A1C 5.8 % (4.0-6.0)
--- NOTE | 2021-08-05 09:33 | HMH.PHAINT ---
HOME MEDICATION LIST CLARIFIED USING LIST FROM DR GOLDSTEIN AND OUTPATIENT PHARMACY
[2021-08-05 10:14] LABS: Coronavirus 19, PCR Not Detected (NotDetected); Influenza A, PCR Not Detected (NotDetected); Influenza B, PCR Not Detected (NotDetected)
--- NOTE | 2021-08-05 11:16 | PC.NURSE ---
Report called to Bernie at [facility] and EMS called for transport
[2021-11-11 16:23] LABS: Free Valproic Acid (Depakote) 25.9
== END 2021-08-05 12:04 ==
LOC: ER 13:09 → 2ND 15:20
PROVIDERS: Admitting Provider Family Medicine; Emergency Provider Student in an Organized Health Care Education/Training Program; Visit Provider Family Medicine
DX: R53.81 Other malaise (principal); I10 Essential (primary) hypertension; I48.91 Unspecified atrial fibrillation; I25.10 Atherosclerotic heart disease of native coronary artery without angina pectoris; E11.9 Type 2 diabetes mellitus without complications; Z20.822 Contact with and (suspected) exposure to COVID-19; Z79.84 Long term (current) use of oral hypoglycemic drugs; Z79.899 Other long term (current) drug therapy; Z99.3 Dependence on wheelchair; Z95.0 Presence of cardiac pacemaker; Z95.5 Presence of coronary angioplasty implant and graft; F17.210 Nicotine dependence, cigarettes, uncomplicated; Z79.01 Long term (current) use of anticoagulants; E03.9 Hypothyroidism, unspecified; Z20.7 Contact with and (suspected) exposure to pediculosis, acariasis and other infestations; J98.8 Other specified respiratory disorders; G20 Parkinson's disease
CPT/HCPCS: G0378; 71045; 80048; 80053; 80165; 81001; 82607; 82962; 83036; 83735; 84443; 85025; 87086; 87088; 87186; 99284; C9803; U0003; U0005

== ENCOUNTER 2021-08-08 16:05 | Inpatient (IN) | payer MEDICARE, MEDICAID, SELFPAY ==
[2021-08-08] VITALS (8 sets, daily range): BP systolic 119–171; BP diastolic 50–74; PULSE 70–80; RESP 18–22; TEMP 37–38.3; O2SAT 88–96; BMI 33.9
--- NOTE | 2021-08-08 16:10 | XR_ITS ---
PROCEDURE INFORMATION: Exam: XR Chest Exam date and time: 08/08/2021 4:10 PM Age: 71 years old Clinical indication: Shortness of breath; Additional info: SOB TECHNIQUE: Imaging protocol: XR of the chest. Views: 1 view. COMPARISON: CR XR CHEST PORTABLE 08/04/2021 10:37 AM FINDINGS: Tubes, catheters and devices: A pacemaker device is present, and its leads are in appropriate position. Airway: Patent Lungs: Compressive atelectasis in the right lung base. Remainder of the lungs are clear. Pleural spaces: Blunting of the right costophrenic angle. Left costophrenic angle is clear. No pneumothorax. Heart/Mediastinum: The heart is moderately enlarged. Vasculature: Calcified aortic knob. Diaphragm: There is nonspecific elevation of the right hemidiaphragm. Bones/joints: No acute skeletal abnormality or aggressive osseous lesion. IMPRESSION: Elevation of the right hemidiaphragm with concern for a small to moderately sized right pleural effusion.
[2021-08-08 16:28] LABS: Coronavirus 19, PCR Not Detected (NotDetected); Influenza A, PCR Not Detected (NotDetected); Influenza B, PCR Not Detected (NotDetected)
[2021-08-08 16:38] LABS: Chloride 100 mmol/L (98-107); Potassium 4.3 mmoL/L (3.5-5.1); Sodium 136 mmol/L (136-145)
[2021-08-08 16:40] LABS: Alanine Aminotransferase 10 U/L (12-78); Aspartate Amino Transferase 45 U/L (14-36); Blood Urea Nitrogen 21 mg/dl (7-17); Estimated Glomerular Filt Rate 49 ml/min (>60); GFR (African American) 59 ML/MIN (>60)
[2021-08-08 16:41] LABS: Albumin Level 3.4 g/dl (3.5-5.0); Albumin/Globulin Ratio 0.9 (1.1-1.8); Alkaline Phosphatase 93 U/L (38-126); Anion Gap 11.3 mEq/L (5-15); Bilirubin,Total 0.3 mg/dl (0.2-1.3); Calcium 8.7 mg/dl (8.4-10.2); Carbon Dioxide 29 mmol/L (22.0-30.0); Globulin 3.6 g/dL (1.3-3.2); Glucose 140 mg/dl (74-100); Lactic Acid 1.9 mmol/L (0.7-2.1)
[2021-08-08 16:48] LABS: Basophils # 0.1 K/mm3 (0-0.2); Basophils % 1.4 % (0.1-2.0); Eosinophils % 0.2 % (0.1-12.0); Hematocrit 33.8 % (37.0-47.0); Lymphocytes % 17.2 % (10-50); Mean Corpuscular HGB Conc 32.6 g/dL (31.8-35.4); Mean Corpuscular Hemoglobin 29.4 pg (27.0-31.2); Mean Corpuscular Volume 90.3 fl (81-99); Mean Platelet Volume 9.7 fl (7.4-10.4); Monocytes # 0.7 K/mm3 (0.1-1.0); Monocytes % 11.1 % (1.7-9.3); Neutrophils # 4.1 K/mm3 (1.8-7.8); Platelet Count 176 K/mm3 (142-424); Red Blood Count 3.75 M/mm3 (4.20-5.40); Red Cell Distribution Width 14.2 % (11.5-17.5); White Blood Count 5.9 K/mm3 (4.8-10.8)
[2021-08-08 16:57] LABS: Troponin I < 0.01 ng/ml (0.00-0.034)
[2021-08-08 17:18] LABS: VBG Base Excess -0.7 mmol/L (-2.4-2.3); VBG HCO3 24.8 mmol/L (23-30); VBG Oxygen Saturation 74.2 % (50-70); VBG PCO2 45.1 mmol/L (35-51); VBG PH 7.36 mmol/L (7.31-7.41); VBG Total CO2 26.2 mmol/L (23-27)
--- NOTE | 2021-08-08 17:48 | HMH.EDGENADL ---
ED Disposition Clinical Impression: Pleural effusion, right, Acute respiratory failure with hypoxia Right lower lobe pneumonia Qualifiers: Pneumonia type: due to unspecified organism Qualified Code(s): J18.9 - Pneumonia, unspecified organism Disposition: Admitted as Observation Condition on Discharge: Fair Referrals: Pérez Sethi MD [Primary Care Provider] - - Critical Care Critical Care Time: No Attestation: On 08/08/21, the high probability of a clinically significant, sudden or life threatening deterioration of the following system(s) required my full and direct attention, intervention and personal management. The time I documented below is in addition to time spent performing reported procedures but includes the following listed in this critical care notation. Medical Decision Making - Medical Records Medical records reviewed: Yes: I reviewed the patient's medical records. - [facility] Inquiry Pt receiving controlled substance: No Vital Signs: 08/08/21 16:05 08/08/21 16:30 08/08/21 17:01 Temperature 100.9 F H Temperature Source Oral Pulse Rate 77 70 Pulse Rate [Left Radial] 80 Respiratory Rate 20 18 Blood Pressure 166/65 H 138/56 L Blood Pressure [Left Arm] 171/74 H Blood Pressure Mean 83 Blood Pressure Mean [Left Arm] 106 Blood Pressure Source [Left Arm] Automatic Cuff Blood Pressure Position [Left Arm] Sitting 02 Sat by Pulse Oximetry 88 L 96 95 Oxygen Delivery Method Room Air Nasal Cannula Nasal Cannula Oxygen Flow Rate (LPM) 2 2 08/08/21 17:31 08/08/21 18:01 Temperature 99.8 F H Temperature Source Tympanic Pulse Rate 70 70 Pulse Rate [Left Radial] Respiratory Rate 18 18 Blood Pressure 137/56 L 119/50 L Blood Pressure [Left Arm] Blood Pressure Mean 85 73 Blood Pressure Mean [Left Arm] Blood Pressure Source [Left Arm] Blood Pressure Position [Left Arm] 02 Sat by Pulse Oximetry 95 96 Oxygen Delivery Method Nasal Cannula Nasal Cannula Oxygen Flow Rate (LPM) 2 2 - Lab Data Lab Results 08/08/21 16:16: WBC 5.9, RBC 3.75 L, Hgb 11.0 L, Hct 33.8 L, MCV 90.3, MCH 29.4, MCHC 32.6, RDW 14.2, Plt Count 176, MPV 9.7, Neut % (Auto) 70.0, Lymph % (Auto) 17.2, Faulk % (Auto) 11.1 H, Eos % (Auto) 0.2, Baso % (Auto) 1.4, Neut # (Auto) 4.1, Lymph # (Auto) 1.0, Faulk # (Auto) 0.7, Eos # (Auto) 0.0, Baso # (Auto) 0.1 08/08/21 16:16: Sodium 136, Potassium 4.3, Chloride 100, Carbon Dioxide 29, Anion Gap 11.3, BUN 21 H, Creatinine 1.10 H, Estimated GFR 49 L, Est GFR ( Amer) 59, Glucose 140 H, Calcium 8.7, Total Bilirubin 0.3, AST 45 H, ALT 10 L, Alkaline Phosphatase 93, Troponin I < 0.01, Total Protein 7.0, Albumin 3.4 L, Globulin 3.6 H, Albumin/Globulin Ratio 0.9 L 08/08/21 16:16: Lactate 1.9 08/08/21 16:16: SARS-CoV-2 (PCR) Not detected, Influenza A Untype (PCR) Not detected, Influenza Type B (PCR) Not detected 08/08/21 17:17: VBG pH 7.36, VBG pCO2 45.1, VBG pO2 43.0 H, VBG HCO3 24.8, VBG Total CO2 26.2, VBG O2 Saturation 74.2 H, VBG Base Excess -0.7 Result diagrams: 08/08/21 16:16 08/08/21 16:16 Orders (Tests/Meds): ED MEDICATIONS Generic Name Dose Route Start Last Admin Trade Name Freq PRN Reason Stop Dose Admin Sodium Chloride 1,000 mls @ 999 mls/hr 08/08/21 16:45 08/08/21 18:11 Sod Chlor 0.9% 1000ml Bag IV 08/08/21 17:45 999 mls/hr .Q1H1M HELGA Administration Ceftriaxone Sodium 1 gm/ 50 mls @ 100 mls/hr 08/08/21 17:45 08/08/21 18:00 Sodium Chloride IV 08/22/21 17:44 100 mls/hr Q24H HELGA Administration Discontinued Medications Generic Name Dose Route Start Last Admin Trade Name Freq PRN Reason Stop Dose Admin Acetaminophen 650 mg 08/08/21 16:36 Acetaminophen 325mg Tab PO 08/08/21 16:37 ONCE ONE Acetaminophen 1,000 mg 08/08/21 16:47 08/08/21 16:48 Acetaminophen 500mg Tab PO 08/08/21 16:48 1,000 mg ONCE ONE Administration Doxycycline Hyclate 100 mg/ 250 mls @ 166.667 mls/hr 08/08/21 17:41 Sodium Chlorid
--- NOTE | 2021-08-08 18:23 | PC.NURSE ---
information coordinator for dr mireille posadas.
--- NOTE | 2021-08-08 18:51 | PC.NURSE ---
report called to saranya bear on second floor at this time
--- NOTE | 2021-08-08 19:05 | PC.NURSE ---
patient up to floor via wheelchair @ this time.
[2021-08-08 19:28] LABS: Adenovirus,PCR Not Detected (NotDetected); Bordetella Pertussis Not Detected (NotDetected); Chlamydophila Pneumoniae, PCR Not Detected (NotDetected); Coronavirus 229E Not Detected (NotDetected); Coronavirus NL63 Not Detected (NotDetected); Coronavirus OC43 Not Detected (NotDetected); Coronovirus HKU1,PCR Not Detected (NotDetected); Human Metapneumovirus Not Detected (NotDetected); Influenza A, PCR Not Detected (NotDetected); Influenza AH1, 2009 Not Detected (NotDetected); Influenza AH1, PCR Not Detected (NotDetected); Influenza AH3,PCR Not Detected (NotDetected); Influenza B, PCR Not Detected (NotDetected); Mycoplasma Pneumoniae, PCR Not Detected (NotDetected); Parainfluenza 1, PCR Not Detected (NotDetected); Parainfluenza 2, PCR Not Detected (NotDetected); Parainfluenza 3, PCR Not Detected (NotDetected); Parainfluenza 4, PCR Not Detected (NotDetected); Respiratory Syncytial Virus Not Detected (NotDetected); Rhinovirus/Enterovirus Not Detected (NotDetected)
[2021-08-09] VITALS (9 sets, daily range): BP systolic 118–194; BP diastolic 60–90; PULSE 70–77; RESP 18–22; TEMP 36.6–37.1; O2SAT 93–96; BMI 33.4; BMI 33.5
--- NOTE | 2021-08-09 06:08 | PC.NURSE ---
No complaints voiced to staff since arriving to floor. Has slept well t/o shift. Pt is only alert to person and can only remember her name. Pt is a poor historian. Med rec from [facility] used for admission/history.
[2021-08-09 06:51] LABS: Basophils % 0.5 % (0.1-2.0); Eosinophils % 0.7 % (0.1-12.0); Hematocrit 29.3 % (37.0-47.0); Lymphocytes # 1.1 K/mm3 (0.7-4.5); Lymphocytes % 21.7 % (10-50); Mean Corpuscular Volume 88.4 fl (81-99); Mean Platelet Volume 9.5 fl (7.4-10.4); Monocytes # 0.4 K/mm3 (0.1-1.0); Monocytes % 8.5 % (1.7-9.3); Neutrophils # 3.5 K/mm3 (1.8-7.8); Neutrophils % 68.6 % (37.0-80.0); Platelet Count 167 K/mm3 (142-424); Red Blood Count 3.31 M/mm3 (4.20-5.40); Red Cell Distribution Width 14.4 % (11.5-17.5); White Blood Count 5.1 K/mm3 (4.8-10.8)
--- NOTE | 2021-08-09 07:15 | CT_ITS ---
PROCEDURE: CT CHEST WO/W CON CLINCAL INDICATION: soa, elevated right diaphragm, cough, effusion COMPARISON: CT ABDPELW CT ABD PELVIS W/ CONTRAST from 04/30/2015 CR XR CHEST PORTABLE from 08/08/2021 TECHNIQUE: IV Contrast: 75ml Isovue 370 Axial images obtained with sagittal and coronal reformats. All CT scans at the facility use one or more dose reduction, viz: automated exposure control, ma/kV adjustment per patient size (including targeted exams where dose is matched to indication, i.e. head), or iterative reconstruction technique. FINDINGS: HEART AND MEDIASTINAL STRUCTURES: No mediastinal or hilar mass. There are few mildly prominent mediastinal lymph nodes in the precarinal region and anterior mediastinum with anterior mediastinal node at 1 point by 1.3 cm. Coronary artery calcifications are present. Cardiac pacemaker device is present. LUNGS AND PLEURAL SPACES: Right hemidiaphragm is elevated with right basilar atelectatic changes. There is soft tissue density in the distal aspect of the right lower lobe bronchus. This could be related to mucous plug, pus, or even neoplasm. Bronchoscopy may provide further evaluation. There is a small right pleural effusion. Consolidation/volume loss is present in the right lower lobe posteriorly the consolidation in the posterior aspect of the right lower lobe was not present on 04/30/2015. There was elevation of the hemidiaphragm however on that exam. Atelectatic changes are present in the left lower lobe medially BONY STRUCTURES: No acute bony abnormalities apparent. UPPER ABDOMEN: Borderline splenomegaly at 13 cm ADDITIONAL FINDINGS: No other significant abnormalities. IMPRESSION: Elevated right hemidiaphragm with consolidation/pneumonia in the right lower lobe posteriorly with trace right effusion. Soft tissue density present in the mid to distal aspect of the right lower lobe bronchus which may be related to mucous plug. Pus or neoplasm would be included in the differential diagnosis. Bronchoscopy may provide further evaluation. Mild atelectatic changes versus patchy infiltrate in the left lower lobe posteriorly Mildly prominent mediastinal lymph nodes Dictated by: John Red MD 08/09/2021 14:07 John Red MD in [place] 08/09/2021 14:07
--- NOTE | 2021-08-09 07:27 | P.CONPHA_ITS ---
[facility] Pharmacy VTE Monitoring - Patient Demographics Admission date: 08/08/21 Report Date: 08/09/21 Time: 07:27 Allergies/Adverse Reactions: Patient Allergies oxycodone [OXYCODONE] Allergy (Severe, Verified 02/23/21 10:59) MOUTH AND THROAT SWELL quetiapine [From SEROQUEL] Allergy (Unknown, Verified 02/23/21 10:59) Unknown allergy reaction Height: 1.63 m Weight: 88.8 kg Patient Problems: Current Active Problems Pleural effusion, right (Acute) Acute respiratory failure with hypoxia (Acute) Right lower lobe pneumonia (Acute) - VTE Risk Labs: VTE Related Lab Results Hgb 10.0 g/dL (12.2-16.2) L 08/09/21 06:21 Hct 29.3 % (37.0-47.0) L 08/09/21 06:21 Plt Count 167 K/mm3 (142-424) 08/09/21 06:21 BUN 21 mg/dl (7-17) H 08/08/21 16:16 Creatinine 1.10 mg/dl (0.52-1.04) H 08/08/21 16:16 Clinical Trial Participant: No - Prophylaxis VTE Prophylaxis Ordered?: Yes Types of VTE Prophylaxis: TEDS Knee High
--- NOTE | 2021-08-09 07:32 | HMH.HP ---
*Admission Date: 08/08/21 *Chief complaint: Hypoxia *History of present illness: 71-year-old female with recent social admission to [facility] for placement returned to the facility yesterday after she was sent from the local longterm due to mild hypoxia. Patient also had a low-grade fever on presentation. Patient is a poor historian and even this morning is unsure of why she was sent to the emergency room. Please see ER note for full details. Patient does report feeling poorly and she has a cough. She is unaware of any fevers. Of note during patient's observation admission here last week patient had URI symptoms and had a low-grade fever. At that time Covid testing was negative and chest x-ray did not reveal any infiltrates. In the emergency room repeat chest x-ray showed chronic elevation of the right hemidiaphragm with questionable effusion in the right base now. Patient was started on IV antibiotics and admitted [facility] History I have reviewed the patient's past medical history: Yes Medical History: Reports:: Arrhythmia, Atrial Fibrillation, Cancer, Coronary Artery Disease, Cerebrovascular Accident, Diabetes Mellitus Type 2, Hyperlipidemia, Hypertension, Internal Pacemaker, Renal Disease Denies:: Diabetes Mellitus Type 1, MRSA, Seizures *Have you ever received a pneumonia vaccine?: No (Pt unable to state) *Have you received a flu vaccine this season?: No (Pt unable to state) Other Medical History: Reports: Hypothyroidism, Thyroid Disease Laterality Cases: Left: Arthroscopy Knee Other Surgeries: Yes: Cardiac Catheterization, Coronary Stent, Pacemaker Amputation: No Fractures: Yes (thumb and right humerus) - *Social History Last grade of school completed: 9th or 10th Smoking Status: Unknown if ever smoked Tobacco Type: cigarettes # Packs/Day (cigarettes): 1 Alcohol Intake: never Substance Use Type: denies use *Occupational Status:: unemployed Housing: longterm Household Members: family *Travel in the last 8 weeks: None Family Hx:: Unable to obtain Review of Systems - Constitutional Reports lack of energy, Denies body ache(s) - Eyes Denies blurry vision, Denies itchy eyes - ENT Denies abnormal hearing - *Cardiovascular Denies chest pain, Denies chest pain at rest, Denies chest pain with activity, Denies shortness of breath with activity, Denies generalized swelling, Denies irregular heart rhythm - *Respiratory Denies change in phlegm color - *Gastrointestinal Denies abdominal pain, Denies belching - *Genitourinary Denies painful urination - *Musculoskeletal Reports joint pain (Right shoulder) - *Neurologic Reports abnormal hearing, Reports confusion Meds Home Medications Medication Instructions Recorded Confirmed Type carbidopa 25 mg-levodopa 100 mg 1 tab PO QID 12/03/19 08/08/21 History tablet Rivaroxaban [Xarelto 20mg Tablet*] 10 mg PO DAILY 08/08/20 08/08/21 History Amiodarone HCl 200 mg PO DAILY 09/09/20 08/08/21 History carvediloL [Carvedilol 6.25mg Tab] 6.25 mg PO BID 02/02/21 08/08/21 History Metformin HCl [Metformin 1000mg 500 mg PO DAILY 08/04/21 08/08/21 History Tablets] Hydrocod/Acet 5/325 mg [Colony 1 tab PO Q8HP PRN #90 tab 08/05/21 08/08/21 Rx 5/325mg tablet] Levothyroxine Sodium [Euthyrox] 112 mcg PO DAILY 08/05/21 08/08/21 History Divalproex Sodium [Depakote 500 mg PO DAILYP PRN 08/08/21 08/08/21 History (Delayed Release) 500mg Tab] Docusate Sodium [Docusate Sodium 100 mg PO DAILY 08/08/21 08/08/21 History 100mg Cap] Ibuprofen [Ibuprofen 400mg 400 mg PO Q6HP PRN 08/08/21 08/08/21 History Tablet] Lactulose [Lactulose 20gm/30ml 20 gm PO DAILYP PRN 08/08/21 08/08/21 History Oral Soln] Mag Carb/Aluminum Hydrox/Algin 30 ml PO DAILY 08/08/21 08/08/21 History [Acid Gone Antacid Liquid] Allergies Allergy/AdvReac Type Severity Reaction Status Date / Time oxycodone [OXYCODONE] Allergy Severe MOUTH AND Verified 02/23/21 10:59
[2021-08-09 07:36] LABS: Anion Gap 8.3 mEq/L (5-15); Blood Urea Nitrogen 20 mg/dl (7-17); Carbon Dioxide 28 mmol/L (22.0-30.0); Chloride 104 mmol/L (98-107); Creatinine Clearance Estimated 70 mL/min (50-200); Estimated Glomerular Filt Rate 61 ml/min (>60); GFR (African American) 74 ML/MIN (>60); Glucose 98 mg/dl (74-100); Potassium 4.3 mmoL/L (3.5-5.1); Sodium 136 mmol/L (136-145)
[2021-08-09 08:45] LABS: Procalcitonin 0.173 ng/mL (0.0-2.0)
[2021-08-09 12:52] LABS: POC Glucose,Bedside 164 (70-110)
[2021-08-09 17:19] LABS: POC Glucose,Bedside 163 (70-110)
[2021-08-10] VITALS (9 sets, daily range): BP systolic 118–166; BP diastolic 69–84; PULSE 68–82; RESP 16–18; TEMP 36.4–36.8; O2SAT 91–95; BMI 340543.0
[2021-08-10 07:05] LABS: Basophils % 0.4 % (0.1-2.0); Eosinophils % 0.1 % (0.1-12.0); Hematocrit 31.6 % (37.0-47.0); Hemoglobin 10.5 g/dL (12.2-16.2); Lymphocytes # 0.9 K/mm3 (0.7-4.5); Lymphocytes % 19.7 % (10-50); Mean Corpuscular HGB Conc 33.1 g/dL (31.8-35.4); Mean Corpuscular Hemoglobin 29.6 pg (27.0-31.2); Mean Corpuscular Volume 89.4 fl (81-99); Mean Platelet Volume 8.6 fl (7.4-10.4); Monocytes # 0.3 K/mm3 (0.1-1.0); Monocytes % 6.5 % (1.7-9.3); Neutrophils # 3.4 K/mm3 (1.8-7.8); Neutrophils % 73.2 % (37.0-80.0); Platelet Count 187 K/mm3 (142-424); Red Blood Count 3.54 M/mm3 (4.20-5.40); Red Cell Distribution Width 14.4 % (11.5-17.5); White Blood Count 4.6 K/mm3 (4.8-10.8)
[2021-08-10 07:07] LABS: Blood Urea Nitrogen 20 mg/dl (7-17); Calcium 8.7 mg/dl (8.4-10.2); Carbon Dioxide 29 mmol/L (22.0-30.0); Chloride 104 mmol/L (98-107); Creatinine Clearance Estimated 71 mL/min (50-200); Estimated Glomerular Filt Rate 54 ml/min (>60); GFR (African American) 66 ML/MIN (>60); Glucose 130 mg/dl (74-100); Sodium 140 mmol/L (136-145)
--- NOTE | 2021-08-10 07:34 | HMH.ACPN2 ---
Internal Medicine - PN: Subj *Date: 08/10/21 *Time: 07:34 Interval history: No acute events over the last 24 hours. Patient reports she feels weak and hot. She claims her cough has become productive. It does not appear sputum has been collected. CT scan yesterday showed right lower lobe infiltrate with small effusion and questionable mucous plug versus bronchial lesion. Pulmonology will be consulted Exam Vital signs and Labs for Last 24 Hours: Temp Pulse Resp BP Pulse Ox 97.5 F L 76 18 145/75 H 94 L 08/10/21 04:00 08/10/21 06:10 08/10/21 04:00 08/10/21 04:00 08/10/21 06:10 Laboratory Results - last 24 hr 08/09/21 06:21: Sodium 136, Potassium 4.3, Chloride 104, Carbon Dioxide 28, Anion Gap 8.3, BUN 20 H, Creatinine 0.90, Estimated Creat Clear 70, Estimated GFR 61, Est GFR ( Amer) 74 D, Glucose 98 D, Calcium 9.0 08/09/21 06:21: Procalcitonin 0.173 08/09/21 12:09: POC Glucose 164 H 08/09/21 16:59: POC Glucose 163 H 08/10/21 06:31: WBC 4.6 L, RBC 3.54 L, Hgb 10.5 L, Hct 31.6 L, MCV 89.4, MCH 29.6, MCHC 33.1, RDW 14.4, Plt Count 187, MPV 8.6, Neut % (Auto) 73.2, Lymph % (Auto) 19.7, [place] % (Auto) 6.5, Eos % (Auto) 0.1, Baso % (Auto) 0.4, Neut # (Auto) 3.4, Lymph # (Auto) 0.9, [place] # (Auto) 0.3, Eos # (Auto) 0.0, Baso # (Auto) 0.0 08/10/21 06:31: Sodium 140, Potassium 4.0, Chloride 104, Carbon Dioxide 29, Anion Gap 11.0, BUN 20 H, Creatinine 1.00, Estimated Creat Clear 71, Estimated GFR 54 L, Est GFR ( Amer) 66, Glucose 130 H, Calcium 8.7 I & O for Last 24 hours: Intake & Output 08/07/21 08/08/21 08/09/21 08/10/21 11:59 11:59 11:59 11:59 Intake Total 240 / 240 480 / 480 Output Total 300 / 300 Balance 240 / 240 180 / 180 Weight 196 lb 3.382 oz 198 lb 6.656 oz Narrative: Patient looks comfortable. Patient still has faint rhonchi bilaterally on lung exam. Heart has a regular rate and rhythm. Abdomen is soft. Assessment and Plan (1) Right lower lobe pneumonia Status: Suspected Qualifiers: Pneumonia type: due to unspecified organism Qualified Code(s): J18.9 - Pneumonia, unspecified organism Category: Medical Code(s): J18.9 - Pneumonia, unspecified organism (2) Acquired elevated diaphragm Status: Acute Category: Medical Code(s): J98.6 - Disorders of diaphragm (3) Acute respiratory failure with hypoxia Status: Acute Category: Medical Code(s): J96.01 - Acute respiratory failure with hypoxia (4) Pleural effusion, right Status: Suspected Category: Medical Code(s): J90 - Pleural effusion, not elsewhere classified (5) Anticoagulant long-term use Status: Chronic Category: Medical Code(s): Z79.01 - jail (current) use of anticoagulants (6) Diabetes Status: Chronic Qualifiers: Diabetes mellitus type: type 2 Diabetes mellitus terminal computer operator insulin use: without snf use Diabetes mellitus complication status: without complication Qualified Code(s): E11.9 - Type 2 diabetes mellitus without complications Category: Medical Code(s): E11.9 - Type 2 diabetes mellitus without complications (7) A-fib Status: Chronic Qualifiers: Atrial fibrillation type: paroxysmal Qualified Code(s): I48.0 - Paroxysmal atrial fibrillation Category: Medical Code(s): I48.91 - Unspecified atrial fibrillation - Assessment and plan all Dx Assessment and Plan for all problems:: 1. Pulmonology consultation today for possible bronchoscopy based on CT scan results 2. Continue IV antibiotics for right lower lobe infiltrate
--- NOTE | 2021-08-10 08:23 | PC.NURSE ---
Called Dr. padgett office to notify consult
--- NOTE | 2021-08-10 11:16 | HMH.PULMCON ---
*Admission Date: 08/08/21 *Reason for consult:: Acute hypoxic respiratory failure, endobronchial lesion, right lower lobe c *History of present illness: Ms. Galindo is a 71-year-old female prior smoker greater than [id number] smoking different hospital worsening respiratory distress and found to be needing oxygen requirements along with her CT showed possible right lower lobe endobronchial lesion with right lower lobe collapse and pulmonary was called for further management. [facility] History Medical History: Reports:: Arrhythmia, Atrial Fibrillation, Cancer, Coronary Artery Disease, Cerebrovascular Accident, Diabetes Mellitus Type 2, Hyperlipidemia, Hypertension, Internal Pacemaker, Renal Disease Denies:: Diabetes Mellitus Type 1, MRSA, Seizures *Have you ever received a pneumonia vaccine?: No (Pt unable to state) *Have you received a flu vaccine this season?: No (Pt unable to state) Other Medical History: Reports: Hypothyroidism, Thyroid Disease Laterality Cases: Left: Arthroscopy Knee Other Surgeries: Yes: Cardiac Catheterization, Coronary Stent, Pacemaker Amputation: No Fractures: Yes (thumb and right humerus) - *Social History Last grade of school completed: 9th or 10th Smoking Status: Unknown if ever smoked Tobacco Type: cigarettes # Packs/Day (cigarettes): 1 Alcohol Intake: never Substance Use Type: denies use *Occupational Status:: unemployed Housing: long term Household Members: family *Travel in the last 8 weeks: None Family Hx:: Unable to obtain ROS - Cons Reports anorexia, Reports fatigue - ENT Denies bleeding gums - Card Reports shortness of breath, Reports shortness of breath with activity - Resp Respiratory: Reports shortness of breath, Reports excessive phlegm production - GI Gastrointestingal: Denies: abdominal pain - Musk Musculoskeletal: Reports joint pain - Psych Reports abnormal sleep pattern Meds Home Medications Medication Instructions Recorded Confirmed Type carbidopa 25 mg-levodopa 100 mg 1 tab PO QID 12/03/19 08/08/21 History tablet Rivaroxaban [Xarelto 20mg Tablet*] 10 mg PO DAILY 08/08/20 08/08/21 History Amiodarone HCl 200 mg PO DAILY 09/09/20 08/08/21 History carvediloL [Carvedilol 6.25mg Tab] 6.25 mg PO BID 02/02/21 08/08/21 History Metformin HCl [Metformin 1000mg 500 mg PO DAILY 08/04/21 08/08/21 History Tablets] Hydrocod/Acet 5/325 mg [Wendel 1 tab PO Q8HP PRN #90 tab 08/05/21 08/08/21 Rx 5/325mg tablet] Levothyroxine Sodium [Euthyrox] 112 mcg PO DAILY 08/05/21 08/08/21 History Divalproex Sodium [Depakote 500 mg PO BID 08/08/21 08/09/21 History (Delayed Release) 500mg Tab] Docusate Sodium [Docusate Sodium 100 mg PO DAILY 08/08/21 08/08/21 History 100mg Cap] Ibuprofen [Ibuprofen 400mg 400 mg PO Q6HP PRN 08/08/21 08/08/21 History Tablet] Lactulose [Lactulose 20gm/30ml 20 gm PO DAILYP PRN 08/08/21 08/08/21 History Oral Soln] Nystatin [Nystatin Cr 100,000 1 cream TOPICAL BIDP PRN 08/09/21 08/09/21 History Units/GM 30GM] Allergies Allergy/AdvReac Type Severity Reaction Status Date / Time oxycodone [OXYCODONE] Allergy Severe MOUTH AND Verified 02/23/21 10:59 THROAT SWELL quetiapine [From SEROQUEL] Allergy Unknown Unknown Verified 02/23/21 10:59 allergy reaction Exam - Constitutional Constitutional:: Present: no acute distress, comfortable - HENMT Exam HENMT: Present: normocephalic, atraumatic - Eye Exam Eyes:: Present: normal appearance both eyes and related structures - Neck Exam Neck:: Present: normal visual inspection - Respiratory Exam Respiratory:: Present: able to speak in complete sentences, no respiratory distress, rhonchi. Absent: wheezing - Cardiovascular Exam Cardiac:: Present: S1, S2 - GI Exam GI:: Present: soft - Skin Exam Skin: Present: warm, no rash - Neurological Exam Neurological: Present: awake - Extremities Exam Extremities: Present: no cyanosis, no clubbing, n
--- NOTE | 2021-08-10 19:32 | PC.NURSE ---
no complaints this shift, alert to person only. 2lnc in place for o2 support.
[2021-08-11] VITALS: BP 133/63; PULSE 77; RESP 18; TEMP 36.7; O2SAT 96
[2021-08-11 04:00] VITALS: BP 172/89; PULSE 70; TEMP 36.8; O2SAT 96
[2021-08-11 05:00] VITALS: BMI 340164.6
[2021-08-11 05:59] VITALS: PULSE 70; PULSE 74; O2SAT 94
--- NOTE | 2021-08-11 06:15 | PC.NURSE ---
pt slept most of the night, vss, 02 sats 94-96 on 2L, pt oriented to name but was confused to and place and could not remember, states that she forgot.
--- NOTE | 2021-08-11 07:20 | HMH.ACPN2 ---
Internal Medicine - PN: Subj *Date: 08/11/21 *Time: 07:20 Interval history: No acute changes. Patient has no complaints and is reminded where she is and what her current diagnosis and treatment plan is. Patient was seen by pulmonology yesterday with plan for saline nebs and chest percussion to alleviate possible mucous plug. Exam Vital signs and Labs for Last 24 Hours: Temp Pulse Resp BP Pulse Ox 98.2 F 70 18 172/89 H 94 L 08/11/21 04:00 08/11/21 05:59 08/11/21 00:00 08/11/21 04:00 08/11/21 05:59 I & O for Last 24 hours: Intake & Output 08/08/21 08/09/21 08/10/21 08/11/21 11:59 11:59 11:59 11:59 Intake Total 240 / 240 480 / 480 540 / 540 Output Total 300 / 300 Balance 240 / 240 180 / 180 540 / 540 Weight 196 lb 3.382 oz 198 lb 6.656 oz 198 lb 3.129 oz Microbiology Reports for the Last 24 Hours: Microbiology 08/08/21 16:16 Blood Blood Culture - Preliminary NO GROWTH AFTER 48 HOURS 08/08/21 16:16 Blood Blood Culture - Preliminary NO GROWTH AFTER 48 HOURS Narrative: Patient is in no distress. Lungs continue to have rhonchi more audible on the right than left. Heart has a regular rate and rhythm. Abdomen is soft. Assessment and Plan (1) Right lower lobe pneumonia Status: Suspected Qualifiers: Pneumonia type: due to unspecified organism Qualified Code(s): J18.9 - Pneumonia, unspecified organism Category: Medical Code(s): J18.9 - Pneumonia, unspecified organism (2) Acquired elevated diaphragm Status: Acute Category: Medical Code(s): J98.6 - Disorders of diaphragm (3) Acute respiratory failure with hypoxia Status: Acute Category: Medical Code(s): J96.01 - Acute respiratory failure with hypoxia (4) Pleural effusion, right Status: Suspected Category: Medical Code(s): J90 - Pleural effusion, not elsewhere classified (5) Anticoagulant long-term use Status: Chronic Category: Medical Code(s): Z79.01 - group home (current) use of anticoagulants (6) Diabetes Status: Chronic Qualifiers: Diabetes mellitus type: type 2 Diabetes mellitus care home insulin use: without rodent exterminator use Diabetes mellitus complication status: without complication Qualified Code(s): E11.9 - Type 2 diabetes mellitus without complications Category: Medical Code(s): E11.9 - Type 2 diabetes mellitus without complications (7) A-fib Status: Chronic Qualifiers: Atrial fibrillation type: paroxysmal Qualified Code(s): I48.0 - Paroxysmal atrial fibrillation Category: Medical Code(s): I48.91 - Unspecified atrial fibrillation - Assessment and plan all Dx Assessment and Plan for all problems:: 1. Continue Rocephin and azithromycin for possible right lower lobe pneumonia 2. Continue saline nebs and chest percussion per pulmonology orders.
[2021-08-11 07:33] LABS: Basophils % 0.4 % (0.1-2.0); Eosinophils % 0.2 % (0.1-12.0); Hematocrit 32.3 % (37.0-47.0); Hemoglobin 10.6 g/dL (12.2-16.2); Lymphocytes # 1.1 K/mm3 (0.7-4.5); Lymphocytes % 18.4 % (10-50); Mean Corpuscular HGB Conc 32.7 g/dL (31.8-35.4); Mean Corpuscular Hemoglobin 29.3 pg (27.0-31.2); Mean Corpuscular Volume 89.6 fl (81-99); Monocytes # 0.3 K/mm3 (0.1-1.0); Monocytes % 5.7 % (1.7-9.3); Neutrophils # 4.4 K/mm3 (1.8-7.8); Neutrophils % 75.3 % (37.0-80.0); Platelet Count 202 K/mm3 (142-424); Red Cell Distribution Width 14.3 % (11.5-17.5); White Blood Count 5.8 K/mm3 (4.8-10.8)
[2021-08-11 07:57] VITALS: BP 158/74; PULSE 76; RESP 18; TEMP 36.9; O2SAT 93
[2021-08-11 08:15] LABS: Anion Gap 10.3 mEq/L (5-15); Blood Urea Nitrogen 26 mg/dl (7-17); Calcium 8.8 mg/dl (8.4-10.2); Carbon Dioxide 29 mmol/L (22.0-30.0); Chloride 103 mmol/L (98-107); Creatinine Clearance Estimated 71 mL/min (50-200); Estimated Glomerular Filt Rate 61 ml/min (>60); GFR (African American) 74 ML/MIN (>60); Glucose 119 mg/dl (74-100); Potassium 4.3 mmoL/L (3.5-5.1); Sodium 138 mmol/L (136-145)
--- NOTE | 2021-08-11 09:17 | HMH.PULMPN ---
Internal Medicine - PN: Subj *Date: 08/11/21 *Time: 12:54 Interval history: No acute respiratory events overnight. Patient denies any new respiratory complaints. Exam - Constitutional Constitutional:: Present: no acute distress, comfortable - HENMT Exam HENMT: Present: normocephalic, atraumatic - Eye Exam Eyes:: Present: normal appearance both eyes and related structures - Neck Exam Neck:: Present: normal visual inspection - Respiratory Exam Respiratory:: Present: able to speak in complete sentences, no respiratory distress, rhonchi - GI Exam GI:: Present: soft - Skin Exam Skin: Present: warm - Neurological Exam Neurological: Present: alert, awake - Extremities Exam Extremities: Present: no cyanosis, no clubbing, no edema Assessment and Plan (1) Right lower lobe pneumonia Status: Suspected Qualifiers: Pneumonia type: due to unspecified organism Qualified Code(s): J18.9 - Pneumonia, unspecified organism Category: Medical Code(s): J18.9 - Pneumonia, unspecified organism (2) Acquired elevated diaphragm Status: Acute Category: Medical Code(s): J98.6 - Disorders of diaphragm (3) Acute respiratory failure with hypoxia Status: Acute Category: Medical Code(s): J96.01 - Acute respiratory failure with hypoxia (4) Pleural effusion, right Status: Suspected Category: Medical Code(s): J90 - Pleural effusion, not elsewhere classified (5) Anticoagulant long-term use Status: Chronic Category: Medical Code(s): Z79.01 - terminologist (current) use of anticoagulants (6) Diabetes Status: Chronic Qualifiers: Diabetes mellitus type: type 2 Diabetes mellitus oysterman insulin use: without fdc use Diabetes mellitus complication status: without complication Qualified Code(s): E11.9 - Type 2 diabetes mellitus without complications Category: Medical Code(s): E11.9 - Type 2 diabetes mellitus without complications (7) A-fib Status: Chronic Qualifiers: Atrial fibrillation type: paroxysmal Qualified Code(s): I48.0 - Paroxysmal atrial fibrillation Category: Medical Code(s): I48.91 - Unspecified atrial fibrillation - Assessment and plan all Dx Assessment and Plan for all problems:: #Acute hypoxic respiratory failure: #Right lower lobe pneumonia/collapse: #Right lower lobe endobronchial lesion: #Right hilar lymphadenopathy: #Pleural effusion small #Greater than [id number] smoking history: 71-year-old greater than [id number] smoking complaint worsening respiratory's and found to be right lower lobe pneumonia along with possible right lower lobe endobronchial lesion highly concerning for endobronchial mass with a pinhole opening to the right lower lobe resulting in right lower lobe collapse/postobstructive pneumonia. Small right pleural effusion also noted. On this visit patient denies fevers, denies chills, denies night sweats, denies hemoptysis, denies weight loss and denies loss of appetite. Given that the noted lesion likely appeared to be a concern for endobronchial mass possibly mucous plugging cannot be completely ruled out, will initiate conservative management with hypertonic saline Mucomyst and chest vest therapy for the next 48 hours and if that Reschedule the patient for outpatient bronchoscopy with endobronchial biopsies. Patient also noted to have right hilar lymphadenopathy. Interval update: patient stable on 2 L nasal cannula. No evidence of leukocytosis. Afebrile. Oxygen requirement weaned to 1 L nasal: Saturations maintained at 92% and above. Blood cultures no growth 48 hours. Plan: -Continue nasal cannula oxygen supplementation to maintain O2 saturation goal of 88% and above, wean as tolerated -De-escalate antibiotics to Augmentin. Will follow with sputum induction and sputum cultures. - DuoNebs every 8 hours along with hypertonic saline Mucomyst and chest percussion therapy. - budesonide every 12 schedule -We will tentatively sc
--- NOTE | 2021-08-11 09:40 | DIET.NUTRFU ---
PO intakes 50-75%, weight stable, BG moderate avg. 140.
--- NOTE | 2021-08-11 09:44 | HMH.PTEV ---
Physical Therapy Evaluation Rehab PT IP Evaluation Start: 08/11/21 07:03 Freq: ONCE Status: Active Protocol: Document 08/11/21 09:33 ALBERT (Rec: 08/11/21 09:44 ALBERT [id number]) Subjective/History History History This is the initial evaluation for Consuelo Lee. Pt is a 71 y/o female admitted to [facility]. Pt was socially admitted for placement. Pt was on supplemental O2 upon arrival. Pt has old injury to R shoulder and has decreased use of R UE. - note done by Kristin Kowalski, SPT Subjective Subjective Pt states she lives at home with son who takes care of her . Pt states she used a walker to get around and that she did it on her own. Pt is a poor historian to medical events and situation. Pt is actually living at a hursing home where she is taken care of. Rehab PT IP Eval Objective Appearance Patient Behavior Appropriate,Cooperative, Fearful,Confused Patient Orientation Name,Birthday,Situation Difficulty following instructions mild Speech Pattern Clear,Appropriate,Monotone, Mumbled,Poor Articulation Ambulation Patient Able to Ambulate No Balance Ability to Arise Able, uses arms to help Sitting Balance Leans or slides in chair Standing Balance Unsteady Dynamic Sitting Balance Ability Poor Dynamic Standing Balance Ability Poor Transfers Bed Transfer Ability Maximum x 2 (75% assist) Chair Transfer Ability Maximum x 2 (75% assist) Sit to Stand Bed Transfer Ability Maximum x 2 (75% assist) Sit to Stand Chair Transfer Ability Maximum x 2 (75% assist) Rehab PT IP prob,goals,plan Problems Date of Evaluation: 08/11/21 PT IP Problems Bed Mobility,Transfers,Gait, Balance,Self care,Safety Rehab Potential Rehab Potential Poor Equipment Needs Assistive Devices Rolling / Wheeled Walker Plan PT Intervention Plan Bed Mobility,Transfers,Gait, Balance,Self care,Safety, Therapeutic Exercise PT Plan Frequency BID Duration LOS Discharge Goals Bed Transfer Ability
[2021-08-11 11:12] VITALS: BP 141/63; PULSE 70; RESP 17; TEMP 36.8; O2SAT 91
--- NOTE | 2021-08-11 13:10 | PC.NURSE ---
PT IS SITTING UP IN THE CHAIR. RECEIVED TYLENOL FOR DISCOMFORT. ALERT AND ORIENTED X2. PT WAS ABLE TO GET UP TO CHAIR WITH PHYSICAL THERAPY HOWEVER PT NEEDED SOME ENCOURAGEMENT. EATING AND DRINKING WELL. VOIDING PER ATTENDS. LUNG SOUNDS HAVE SCATTERED RHONCHI. ABDOMEN SOFT/NON TENDER WITH ACTIVE BOWEL SOUNDS. WILL CONTINUE TO MONITOR.
--- NOTE | 2021-08-11 14:25 | HMH.DCSUM ---
General - General Admission date:: 08/09/21 Discharge date: 08/11/21 HPI HPI: 71-year-old female with recent social admission to [facility] for placement returned to the facility yesterday after she was sent from the local senior care due to mild hypoxia. Patient also had a low-grade fever on presentation. Patient is a poor historian and even this morning is unsure of why she was sent to the emergency room. Please see ER note for full details. Patient does report feeling poorly and she has a cough. She is unaware of any fevers. Of note during patient's observation admission here last week patient had URI symptoms and had a low-grade fever. At that time Covid testing was negative and chest x-ray did not reveal any infiltrates. In the emergency room repeat chest x-ray showed chronic elevation of the right hemidiaphragm with questionable effusion in the right base now. Patient was started on IV antibiotics and admitted Hospital Course Hospital Course: Patient was admited for treatmetn of RLL pneumonia with Rocephin and Azith. CT scan performed on 08/09 revealed atelectasis as well as an endobronchial lesion vs a mucus plug. PUlmonology was consulted and patient was given hypertonic saline and chest percussion to treat a mucus plug. Patient did not have much change in lung exam with persistence of rhonchi. Patient was stable on oxygen and was afebrile except for fever on presentationin ER. Patient was discharged back to [facility] to continue to rehabilitate. She will complete a coarse of Augmentin and continue budesonide nebs bid. Bronchoscopy will be scheduled as an outpaient for 4 weeks from discharge. Objective Vital signs: Temp Pulse Resp BP Pulse Ox 98.3 F 70 17 141/63 H 91 L 08/11/21 11:12 08/11/21 11:12 08/11/21 11:12 08/11/21 11:12 08/11/21 11:12 no acute distress - *Routine Respiratory Exam Present: rhonchi Results Labs on day of discharge: Labs from last 24 hours 08/11/21 08/11/21 06:45 06:45 WBC 5.8 D RBC 3.60 L Hgb 10.6 L Hct 32.3 L MCV 89.6 MCH 29.3 MCHC 32.7 RDW 14.3 Plt Count 202 MPV 9.0 Neut % (Auto) 75.3 Lymph % (Auto) 18.4 [place] % (Auto) 5.7 Eos % (Auto) 0.2 Baso % (Auto) 0.4 Neut # (Auto) 4.4 Lymph # (Auto) 1.1 [place] # (Auto) 0.3 Eos # (Auto) 0.0 Baso # (Auto) 0.0 Sodium 138 Potassium 4.3 Chloride 103 Carbon Dioxide 29 Anion Gap 10.3 BUN 26 H D Creatinine 0.90 Estimated Creat Clear 71 Estimated GFR 61 Est GFR ( Amer) 74 Glucose 119 H Calcium 8.8 Preliminary micro results at discharge 08/08/21 16:16 Blood Culture - Preliminary Blood NO GROWTH AFTER 48 HOURS 08/08/21 16:16 Blood Culture - Preliminary Blood NO GROWTH AFTER 48 HOURS DS: Diagnosis - Discharge Diagnosis (1) Right lower lobe pneumonia Status: Suspected (2) Acquired elevated diaphragm Status: Acute (3) Acute respiratory failure with hypoxia Status: Acute (4) Pleural effusion, right Status: Suspected (5) Anticoagulant long-term use Status: Chronic (6) Diabetes Status: Chronic (7) A-fib Status: Chronic Discharge Plan - Patient Discharge Instructions ACTIVITY: Continue current activity DIET: continue same diet Patient Instructions: DI for Pneumonia -- Adult - Follow up Plan Follow up with: Snehal Celis MD [Physician] - Disposition: Xfer SNF Condition at discharge:: Stable Home Medications: Home Medications Medication Instructions Recorded Confirmed Type carbidopa 25 mg-levodopa 100 mg 1 tab PO QID 12/03/19 08/08/21 History tablet Rivaroxaban [Xarelto 20mg Tablet*] 10 mg PO DAILY 08/08/20 08/08/21 History Amiodarone HCl 200 mg PO DAILY 09/09/20 08/08/21 History carvediloL [Carvedilol 6.25mg Tab] 6.25 mg PO BID 02/02/21 08/08/21 History Metformin HCl [Metformin 1000mg 500 mg PO DAILY 08/04/21 08/08/21 History Tablets]
[2021-08-11 14:37] LABS: Coronavirus 19, PCR Not Detected (NotDetected); Influenza A, PCR Not Detected (NotDetected); Influenza B, PCR Not Detected (NotDetected)
--- NOTE | 2021-08-11 14:49 | SW/DCPLANNER ---
DR MARI STATED HE HAD SPOKEN WITH THE FAM[facility] OF [facility] AND THEY REQUESTED [facility] FOR SKILLED SHORT TERM REHAB I DID SEND IT TO [facility] AND ASKED IF SOMEONE CAN REVIEW IT AND IF ACCEPTED LET ME KNOW SO WE CAN WORK TOWARD A DISCHARGE PLAN FOR HER.. PATIENT HAS A [employer] MCR WHICH WILL REQUIRE AN AUTHORIZATION....
[2021-08-11 15:18] VITALS: BP 110/83; PULSE 88; RESP 17; TEMP 37.1; O2SAT 98
[2021-08-12 01:34] LABS: POC Glucose,Bedside 208 (70-110)
[2021-08-12 01:34] LABS: POC Glucose,Bedside 123 (70-110)
[2021-08-12 01:34] LABS: POC Glucose,Bedside 200 (70-110)
[2021-08-12 01:34] LABS: POC Glucose,Bedside 129 (70-110)
[2021-08-12 01:34] LABS: POC Glucose,Bedside 224 (70-110)
== END 2021-08-11 16:45 | disposition home or self-care (01) | DRG 193 ==
LOC: ER 18:30 → 2ND 19:01
PROVIDERS: Admitting Provider Family Medicine; Emergency Provider Emergency Medicine; PCP Family Medicine; Visit Provider Family Medicine
DX: J18.9 Pneumonia, unspecified organism (principal); J96.01 Acute respiratory failure with hypoxia; I48.0 Paroxysmal atrial fibrillation; I25.10 Atherosclerotic heart disease of native coronary artery without angina pectoris; E11.9 Type 2 diabetes mellitus without complications; Z79.01 Long term (current) use of anticoagulants; I10 Essential (primary) hypertension; Z95.5 Presence of coronary angioplasty implant and graft; Z95.0 Presence of cardiac pacemaker; E03.9 Hypothyroidism, unspecified; Z20.822 Contact with and (suspected) exposure to COVID-19; F17.210 Nicotine dependence, cigarettes, uncomplicated; E78.5 Hyperlipidemia, unspecified; Z79.84 Long term (current) use of oral hypoglycemic drugs; R91.1 Solitary pulmonary nodule; Z86.73 Personal history of transient ischemic attack (TIA), and cerebral infarction without residual deficits
CPT/HCPCS: 36415; 71045; 71270; 80048; 80053; 82803; 82962; 83605; 84145; 84484; 85025; 87040; 87486; 87581; 87632; 87798; 94640; 94760; 94761; 96365; 96367; 96375; 97162; 97530; 99284; C9803; G0378; J0456; Q9967; U0003; U0005

== ENCOUNTER → 2021-09-09 12:51 | Outpatient (CLI) | payer MEDICARE, MEDICAID, SELFPAY ==
--- NOTE | 2021-09-09 13:01 | FL_ITS ---
PROCEDURE: FL BARIUM SWALLOW MODIFIED CLINICAL INDICATION: EVAUATE SAFEST DIET COMPARISON: No exams were available for comparison TECHNIQUE: Patient administered varying consistencies of barium contrast, while viewed in lateral position under real-time fluoroscopy with cine recording. FLUOROSCOPY TIME:3.07 minutes The study was performed in conjunction with speech pathologist. Please see that report & recommendations. FINDINGS: Patient was given varying consistencies of barium. No tracheal aspiration or vestibular penetration. There was difficulty in moving the pill posteriorly with thin wash.. IMPRESSION: No evidence of aspiration or penetration. Please see speech pathologist report and recommendations. Dictated by: John Red MD 09/09/2021 17:35 John Red MD in [place] 09/09/2021 17:35
--- NOTE | 2021-09-09 13:45 | HMH.SLMBS2 ---
Speech & Language Evaluation Speech/Language Mod Barium Swallow Start: 09/09/21 13:33 Freq: once Status: Complete Protocol: Document 09/09/21 13:33 ELZBIETA (Rec: 09/09/21 13:45 ELZBIETA [id number]) General Information General Current Food Consistancy Regular,Chopped Meats,Thin Liquids Dentition Edentulous Oxygen Status Room Air Patient Orientation Person,Place Ability to Follow Directions Good MBS Recommendations Diet Dietary Recommendations Regular,Chopped Meats,Thin Liquids Treatment/Strategies Strategy/Precaution Recommend Sitting Upright (90 deg),Small Bites and Sips,Alternate Liquids/Solids Mod Barium Swallow Impressions Summary and Impressions Oral Phase Impression Mild Impairment Oral Phase Summary Ms. Lee was given the following consistencies: thins via straw and open cup, pudding, pureed, mechanical soft, regular, and pill with thin wash. Ms. Lee required extra mastication time for regular due to lack of dentition. Ms. Lee could not move pill posteriorly witht hin wash. Pharyngeal Phase Impression No Impairment (WFL) Pharyngeal Phase Summary No pharyngeal phase impairments noted. Speech/Language MBS Assessment/Goals/Plan Assessment Date of Evaluation: 09/09/21 Evaluation Type Initial Certification Assessment/Problems Dysphagia Does Patient Qualify for Service No Qualify/Failure Comment Patient will be followed up by NUCLEAR LOGGING ENGINEER at [facility]. Plan Pt/Guardian verbally ack understanding Yes of dx/prognosis/goals G -code Required No Mod Barium Swallow Setup Exam Setup Radiologist John Red Level of Consciousness Awake,Alert Position (degrees) 90 Mod Barium Swallow-Lat View Textures Lateral View Food Presentation Thin Liquid via Cup,Thin Liquid via Straw,Pureed Food- Thick,Mech. Soft Food- Regular ,Barium Tablet,Regular Food, Pudding Oral Phase Labial Closure No Impairment (WFL) Bolus Formation Pooling L/R No Impairment (WFL) Bolus Formation under Tongue No Impairment (WFL) Bolus Formation Scattered Loss No Impairment (WFL) Mastication Rotary Chew Mild Impairment Mastication
== END ==
PROVIDERS: PCP Family Medicine; Visit Provider Emergency Medicine
DX: R13.10 Dysphagia, unspecified (principal)
CPT/HCPCS: 70371; 92611

== ENCOUNTER → 2021-09-10 10:16 | Outpatient (CLI) | payer MEDICARE, MEDICAID, SELFPAY ==
[2021-09-10 10:27] LABS: Adenovirus,PCR Not Detected (NotDetected); Bordetella Pertussis Not Detected (NotDetected); Chlamydophila Pneumoniae, PCR Not Detected (NotDetected); Coronavirus 19, PCR Not Detected (NotDetected); Coronavirus 229E Not Detected (NotDetected); Coronavirus NL63 Not Detected (NotDetected); Coronavirus OC43 Not Detected (NotDetected); Coronovirus HKU1,PCR Not Detected (NotDetected); Human Metapneumovirus Not Detected (NotDetected); Influenza A, PCR Not Detected (NotDetected); Influenza AH1, 2009 Not Detected (NotDetected); Influenza AH1, PCR Not Detected (NotDetected); Influenza AH3,PCR Not Detected (NotDetected); Influenza B, PCR Not Detected (NotDetected); Mycoplasma Pneumoniae, PCR Not Detected (NotDetected); Parainfluenza 1, PCR Not Detected (NotDetected); Parainfluenza 2, PCR Not Detected (NotDetected); Parainfluenza 3, PCR Not Detected (NotDetected); Parainfluenza 4, PCR Not Detected (NotDetected); Respiratory Syncytial Virus Not Detected (NotDetected); Rhinovirus/Enterovirus Not Detected (NotDetected)
== END ==
PROVIDERS: Visit Provider Emergency Medicine
DX: Z20.822 Contact with and (suspected) exposure to COVID-19 (principal)
CPT/HCPCS: 87581; 87632; 87798; C9803; U0003; U0005

== ENCOUNTER 2021-09-13 08:29 | Day surgery (SDC) | payer MEDICARE, MEDICAID, SELFPAY ==
[2021-09-08 14:01] VITALS: BMI 30.9
[2021-09-13 08:51] VITALS: BP 184/85; PULSE 70; RESP 18; TEMP 36.3; O2SAT 100
--- NOTE | 2021-09-13 09:17 | XR_ITS ---
PROCEDURE: XR CHEST PORTABLE CLINICAL HISTORY: Pneumonia COMPARISON: CR XR CHEST PORTABLE from 01/14/2021 CR XR CHEST PORTABLE from 08/04/2021 CR XR CHEST PORTABLE from 08/08/[address] CHEST WO/W CON from 08/09/2021 FINDINGS: Normal heart size. Bipolar pacemaker unchanged. Elevated hemidiaphragm with right basilar atelectatic changes not significantly changed. Previous CT scan demonstrate consolidation in the right lung base posteriorly not well demonstrated on this exam. No acute bony abnormalities. IMPRESSION: No change elevated right hemidiaphragm with right basilar atelectatic changes Dictated by: John Red MD 09/13/2021 10:39 John Red MD in [place] 09/13/2021 10:39
--- NOTE | 2021-09-15 12:52 | HMH.PULMPN ---
Internal Medicine - PN: Subj *Date: 09/15/21 *Time: 12:52 Interval history: Patient presented today for the scheduled outpatient procedure Exam - Constitutional Constitutional:: Present: no acute distress, comfortable - HENMT Exam HENMT: Present: normocephalic - Eye Exam Eyes:: Present: normal appearance both eyes and related structures - Neck Exam Neck:: Present: normal visual inspection - Respiratory Exam Respiratory:: Present: able to speak in complete sentences, decreased breath sounds, rhonchi - Cardiovascular Exam Cardiac:: Present: S1, S2 - GI Exam GI:: Present: soft - Skin Exam Skin: Present: warm - Neurological Exam Neurological: Absent: alert, awake, normal cognition Assessment and Plan - Assessment and plan all Dx Assessment and Plan for all problems:: #Acute hypoxic respiratory failure: #Right lower lobe pneumonia/collapse: #Right lower lobe endobronchial lesion: #Right hilar lymphadenopathy: #Pleural effusion small #Greater than [id number] smoking history: Ms. Lee is presented to the OR for her scheduled bronchoscopy with endobronchial biopsy recommended with possible right lower lobe endobronchial lesion and right lower lobe mass. Patient alert and oriented x0. She is unable to provide consent at this point of time. She is unable to answer questions appropriately. We have attempted to call her son who is the POA. After discussing with anesthesia, given her inability to provide consent and unavailability of the son for the current procedure, the plan was made to cancel the procedure and to reschedule the procedure as per the son's availability as soon as we can.
[2022-06-23 10:55] LABS: POC Glucose,Bedside 93 (70-110)
== END 2021-09-13 11:02 | disposition home or self-care (01) ==
LOC: OR 08:31
PROVIDERS: PCP Family Medicine; Visit Provider Internal Medicine Pulmonary Disease
DX: Z53.09 Procedure and treatment not carried out because of other contraindication (principal)
CPT/HCPCS: 71045; 82962

== ENCOUNTER → 2021-10-12 11:05 | Outpatient (CLI) | payer MEDICARE, MEDICAID, SELFPAY ==
[2021-10-12 11:35] LABS: Basophils % 0.6 % (0.1-2.0); Eosinophils # 0.1 K/mm3 (0.0-0.4); Eosinophils % 2.7 % (0.1-12.0); Hematocrit 36.1 % (37.0-47.0); Hemoglobin 11.3 g/dL (12.2-16.2); Lymphocytes # 2.3 K/mm3 (0.7-4.5); Lymphocytes % 45.1 % (10-50); Mean Corpuscular HGB Conc 31.3 g/dL (31.8-35.4); Mean Corpuscular Hemoglobin 29.7 pg (27.0-31.2); Mean Corpuscular Volume 94.8 fl (81-99); Mean Platelet Volume 8.1 fl (7.4-10.4); Monocytes # 0.5 K/mm3 (0.1-1.0); Monocytes % 8.9 % (1.7-9.3); Neutrophils # 2.2 K/mm3 (1.8-7.8); Neutrophils % 42.7 % (37.0-80.0); Platelet Count 216 K/mm3 (142-424); Red Blood Count 3.81 M/mm3 (4.20-5.40); Red Cell Distribution Width 16.9 % (11.5-17.5); White Blood Count 5.2 K/mm3 (4.8-10.8)
[2021-10-12 12:02] LABS: Chloride 102 mmol/L (98-107); Potassium 4.5 mmoL/L (3.5-5.1); Sodium 133 mmol/L (136-145)
[2021-10-12 12:05] LABS: Anion Gap 6.5 mEq/L (5-15); Blood Urea Nitrogen 30 mg/dl (7-17); Carbon Dioxide 29 mmol/L (22.0-30.0); Estimated Glomerular Filt Rate 49 ml/min (>60); GFR (African American) 59 ML/MIN (>60)
[2021-10-12 12:06] LABS: Calcium 9.1 mg/dl (8.4-10.2); Glucose 112 mg/dl (74-100)
== END ==
PROVIDERS: PCP Emergency Medicine; Visit Provider Nurse Practitioner Family
DX: I10 Essential (primary) hypertension (principal); I25.10 Atherosclerotic heart disease of native coronary artery without angina pectoris; I48.91 Unspecified atrial fibrillation; T82.191A Other mechanical complication of cardiac pulse generator (battery), initial encounter; Z79.01 Long term (current) use of anticoagulants; Z86.73 Personal history of transient ischemic attack (TIA), and cerebral infarction without residual deficits; Z95.0 Presence of cardiac pacemaker; Z01.818 Encounter for other preprocedural examination; Z11.52 Encounter for screening for COVID-19
CPT/HCPCS: 80048; 85025; C9803; U0003; U0005

== ENCOUNTER → 2021-10-29 10:44 | Outpatient (CLI) | payer MEDICARE, MEDICAID, SELFPAY ==
[2021-10-29 11:21] LABS: Basophils # 0.2 K/mm3 (0-0.2); Basophils % 2.3 % (0.1-2.0); Eosinophils # 0.1 K/mm3 (0.0-0.4); Eosinophils % 1.8 % (0.1-12.0); Hematocrit 39.5 % (37.0-47.0); Hemoglobin 12.6 g/dL (12.2-16.2); Lymphocytes # 1.8 K/mm3 (0.7-4.5); Lymphocytes % 28.2 % (10-50); Mean Corpuscular HGB Conc 31.8 g/dL (31.8-35.4); Mean Corpuscular Hemoglobin 29.8 pg (27.0-31.2); Mean Corpuscular Volume 93.7 fl (81-99); Mean Platelet Volume 8.1 fl (7.4-10.4); Monocytes # 0.5 K/mm3 (0.1-1.0); Monocytes % 7.6 % (1.7-9.3); Neutrophils # 3.8 K/mm3 (1.8-7.8); Neutrophils % 60.1 % (37.0-80.0); Platelet Count 213 K/mm3 (142-424); Red Blood Count 4.21 M/mm3 (4.20-5.40); Red Cell Distribution Width 16.3 % (11.5-17.5); White Blood Count 6.3 K/mm3 (4.8-10.8)
[2021-10-29 11:29] LABS: Chloride 101 mmol/L (98-107); Sodium 133 mmol/L (136-145)
[2021-10-29 11:30] LABS: Potassium 4.6 mmoL/L (3.5-5.1)
[2021-10-29 11:32] LABS: Albumin Level 3.5 g/dl (3.5-5.0); Alkaline Phosphatase 49 U/L (38-126); Anion Gap 6.6 mEq/L (5-15); Aspartate Amino Transferase 17 U/L (14-36); Bilirubin,Total 0.5 mg/dl (0.2-1.3); Blood Urea Nitrogen 29 mg/dl (7-17); Carbon Dioxide 30 mmol/L (22.0-30.0); Estimated Glomerular Filt Rate 49 ml/min (>60); GFR (African American) 59 ML/MIN (>60); Globulin 3.5 g/dL (1.3-3.2)
[2021-10-29 11:33] LABS: Calcium 9.3 mg/dl (8.4-10.2); Glucose 159 mg/dl (74-100)
[2021-10-29 11:35] LABS: Alanine Aminotransferase < 4 U/L (12-78)
== END ==
PROVIDERS: PCP Emergency Medicine; Visit Provider Emergency Medicine
DX: Z01.812 Encounter for preprocedural laboratory examination (principal); Z11.52 Encounter for screening for COVID-19; I48.0 Paroxysmal atrial fibrillation
CPT/HCPCS: 36415; 80053; 85025; C9803; U0003; U0005

== ENCOUNTER 2021-11-01 07:35 | Day surgery (SDC) | payer MEDICARE, MEDICAID, SELFPAY ==
--- NOTE | 2021-11-01 | IR_ITS ---
APPROVED REPORT Patient Location: Outpatient [facility] Operator: JORGE LUIS Hartman RT (R) PROCEDURES Pocket Revision Removal of old Pacemaker Implant of Permanent Pacemaker INDICATION Generator Recall, third degree heart block Informed consent was obtained prior to the procedure. COMPLICATIONS None Estimated Blood Loss: Less than 10 mls TECHNIQUE 1% lidocaine with epinephrine used to anesthetize the left anterior aspect of the chest. Scalpel was used to make the initial cutaneous incision and then used to dissect down to the existing pacemaker generator. The generator was removed from the existing pocket. Digital manipulation was required along with intermittent usage of scalpel in order to revise the pocket. The leads were removed from the old generator. The new generator was screwed to the existing leads and secured into place. Electronic interrogation proved acceptable thresholds and voltage within the lead. Antibiotics were used to flush the pocket and the pacemaker was secured using 3-0 silk into the newly revised pocket. Monocryl was used to close the subcutaneous tissue and then yoana were placed on the cutaneous area in order to approximate the incision. Patient was transferred to the postop holding area in stable condition. INTERROGATION Explanted Generator Model number: Lori, 2160 Explanted Generator Serial number: [id number] Implanted Generator Model number: ACCOLADE [place]AM [place]LE, L311 Implanted Generator Serial number: [id number] Atrial lead model number: Tendril ST Optim, 1882TC Atrial lead serial number: [id number] P-wave: 1.4 mV Impedence: 1.0V@0.4ms Threshold: 431 ohms Right Ventricular lead model number: Tendril SDX, 1688TC Right Ventricular lead serial number: [id number] R-wave: 7.0 mV Impedence: 1.0V@0.4ms Threshold: 540 ohms Pacing Parameters: Mode: DDDR Base/Max Track:70/130 ppm No diaphragmatic stimulation at 10 volts. IMPRESSION Pocket Revision Removal of old Pacemaker Implant of Permanent Pacemaker PLAN 1. Post op wound care, follow up office visit Electronically signed by : Efra Das MD 11/01/2021 14:56:01
[2021-11-01 07:54] VITALS: BMI 33.3
[2021-11-01 08:52] VITALS: BP 157/68; PULSE 70; RESP 18; TEMP 36.6; O2SAT 98
[2021-11-01 12:52] VITALS: BP 153/82; PULSE 70; RESP 19; O2SAT 97
[2021-11-01 12:53] VITALS: PULSE 70
[2021-11-01 13:05] VITALS: BP 149/74; PULSE 70; RESP 19; O2SAT 93
[2021-11-01 13:20] VITALS: BP 155/80; PULSE 70; RESP 19; O2SAT 95
[2021-11-01 13:35] VITALS: BP 151/73; PULSE 70; RESP 19; O2SAT 95
== END 2021-11-01 14:10 ==
LOC: CATHLAB 07:36
PROVIDERS: PCP Family Medicine; Visit Provider Internal Medicine
DX: T82.191A Other mechanical complication of cardiac pulse generator (battery), initial encounter; I44.2 Atrioventricular block, complete; I48.0 Paroxysmal atrial fibrillation; Z79.01 Long term (current) use of anticoagulants; I10 Essential (primary) hypertension; I25.118 Atherosclerotic heart disease of native coronary artery with other forms of angina pectoris; Z79.899 Other long term (current) drug therapy; Y83.1 Surgical operation with implant of artificial internal device as the cause of abnormal reaction of the patient, or of later complication, without mention of misadventure at the time of the procedure
CPT/HCPCS: 33208; 99282; C1785

== ENCOUNTER 2021-11-01 22:37 | Emergency (ER) | payer MEDICARE, MEDICAID, SELFPAY ==
[2021-11-01 21:50] VITALS: BP 185/82; PULSE 70; RESP 18; TEMP 36.7; O2SAT 99; BMI 28.8
--- NOTE | 2021-11-01 23:47 | HMH.EDGENADL ---
ED Disposition Clinical Impression: Postoperative bleeding from incision Disposition: Home, Self-Care Condition on Discharge: Good Instructions: How to Care for a Surgical Wound-[place] Additional Instructions: You have been evaluated for bleeding from staple wound. The wound is clean, dry, intact. Please leave bandage on. Follow-up with Dr. Das in your PCP. Return for any new or worsening symptoms, redness, pain, swelling, wound drainage. Referrals: Pérez Sethi MD [Primary Care Provider] - Time of Disposition: 23:53 - Critical Care Critical Care Time: No Attestation: On 11/01/21, the high probability of a clinically significant, sudden or life threatening deterioration of the following system(s) required my full and direct attention, intervention and personal management. The time I documented below is in addition to time spent performing reported procedures but includes the following listed in this critical care notation. Medical Decision Making - Medical Records Medical records reviewed: Yes: I reviewed the patient's medical records. - [facility] Inquiry Pt receiving controlled substance: No Vital Signs: 11/01/21 21:50 Temperature 98.1 F Temperature Source Oral Pulse Rate [Right] 70 Respiratory Rate 18 Blood Pressure [Right Arm] 185/82 H Blood Pressure Mean [Right Arm] 116 02 Sat by Pulse Oximetry 99 Medical Decision Narrative: In summary this is a 71-year-old female presenting to the emergency department with a postoperative complication. Patient clinically stable on arrival. Vital signs within normal limits. The surgical site in the left upper chest is clean, dry, intact. The yoana are holding the skin together well. There is no bleeding from the incision. There is minimal dried blood at the edge of the yoana, where they meet the skin. No erythema or wound drainage. Bandage was sterilely removed, skin cleaned with chlorhexidine. New bandage applied with Tegaderm on top. Well-tolerated. Discussed case with Dr. Das. No emergent or urgent interventions. Will follow up in clinic. Stable for discharge General Adult HPI - General Chief complaint: Recheck/Abnormal Lab/Rx Stated complaint: pacemaker site bleeding Time Seen by Provider: 11/01/21 22:47 Mode of Arrival: EMS Source of Information: EMS, Medical Record Limitations: No Limitations Description of Symptoms (Recalled from ER Triage Doc. by RN): pt has a pacemaker replaced today. per [facility] reports dressing was saturated and per MD orders is to be send to er - History of Present Illness HPI narrative: 71-year-old female presenting to the emergency department with postsurgical complication. Patient had a pacemaker change today, surgically with Dr. Das. When she got [facility] to her [facility] tonight staff noticed that there was dark red blood on the bandage on the left side of her chest. Staff at the [facility] thought they were not to touch the bandage. Instead, sent her directly by EMS to the emergency department for evaluation. Patient denies any pain at the site. Denies feeling lightheaded or nauseous. No other easy bleeding or bruising. She did restart her blood thinner today - Related Data Home Medications Medication Instructions Recorded Confirmed carbidopa 25 mg-levodopa 100 mg 1 tab PO QID 12/03/19 11/01/21 tablet Rivaroxaban [Xarelto 20mg Tablet*] 10 mg PO DAILY 08/08/20 10/11/21 Amiodarone HCl 200 mg PO DAILY 09/09/20 11/01/21 carvediloL [Carvedilol 6.25mg Tab] 6.25 mg PO BID 02/02/21 10/11/21 Metformin HCl [Metformin 1000mg 500 mg PO DAILY 08/04/21 10/11/21 Tablets] Levothyroxine Sodium [Euthyrox] 112 mcg PO DAILY 08/05/21 11/01/21 Divalproex Sodium [Depakote 500 mg PO BID 08/08/21 11/01/21 (Delayed Release) 500mg Tab] Docusate Sodium [Docusate Sodium 100 mg PO DAILY 08/08/21 11/01/21 100mg Cap] Ibuprofen [Ibuprofen 400mg 400 mg PO Q6HP PRN 08/08/21 11/01/21 Tablet]
[2021-11-01 23:58] VITALS: BP 172/87; PULSE 70; RESP 18; TEMP 36.7; O2SAT 99
== END 2021-11-01 23:59 | disposition home or self-care (01) ==
PROVIDERS: Emergency Provider Emergency Medicine; PCP Family Medicine
DX: L76.22 Postprocedural hemorrhage of skin and subcutaneous tissue following other procedure (principal); L68.0 Hirsutism; E03.9 Hypothyroidism, unspecified; E11.9 Type 2 diabetes mellitus without complications; E78.5 Hyperlipidemia, unspecified; I10 Essential (primary) hypertension; I48.0 Paroxysmal atrial fibrillation; Z95.0 Presence of cardiac pacemaker; I25.10 Atherosclerotic heart disease of native coronary artery without angina pectoris; Z88.5 Allergy status to narcotic agent
CPT/HCPCS: 99282

== ENCOUNTER → 2022-05-09 11:07 | Outpatient (CLI) | payer MEDICARE, MEDICAID, SELFPAY ==
--- NOTE | 2022-05-09 11:10 | XR_ITS ---
FINAL REPORT CLINICAL HISTORY: on amiodarone// pt in wheelchair unable to lift arms-- they were held up for xray FINDINGS: 2 views of the chest were obtained . There is a left subclavian pacemaker in place. The heart is normal in size. The mediastinum is within normal limits. There is mild bibasilar atelectasis or scarring. Elevation is seen of the left hemidiaphragm. There is no pneumothorax. Osseous structures demonstrates AP proximal right humeral fracture with increased displacement from prior exam. IMPRESSION: Mild bibasilar atelectasis or scarring. Right humeral fracture with worsening displacement. Reviewed, Interpreted and Dictated by Santiago Finley III, MD Transcribed by Magi Lopez Authenticated and . [facility]
[2022-05-09 12:54] LABS: Alanine Aminotransferase 7 U/L (12-78); Albumin Level 3.2 g/dl (3.5-5.0); Alkaline Phosphatase 64 U/L (38-126); Anion Gap 7.8 mEq/L (5-15); Aspartate Amino Transferase 15 U/L (14-36); Blood Urea Nitrogen 27 mg/dl (7-17); Calcium 9.1 mg/dl (8.4-10.2); Carbon Dioxide 30 mmol/L (22.0-30.0); Chloride 104 mmol/L (98-107); Chol/HDL Ratio 3.4 (1-3.5); Cholesterol 170 mg/dl (140-200); Estimated Glomerular Filt Rate 37 ml/min (>60); GFR (African American) 44 ML/MIN (>60); Glucose 137 mg/dl (74-100); HDL Cholesterol 50 mg/dl (40-60); Potassium 4.8 mmoL/L (3.5-5.1); Sodium 137 mmol/L (136-145); Total Protein,Serum 6.3 g/dl (6.3-8.2); Triglycerides 173 mg/dl (30-150); VLDL Cholesterol 35 mg/dL (0-40)
[2022-05-09 12:57] LABS: Bilirubin,Total < 0.1 mg/dl (0.2-1.3)
[2022-05-09 13:10] LABS: Free T4 (Free Thyroxine) 1.81 ng/dl (0.78-2.19)
[2022-05-09 13:26] LABS: Bilirubin,Indirect 0.1 mg/dL (0.0-0.9)
[2022-05-10 08:25] LABS: Direct LDL Cholesterol 86 mg/dL (100-129)
== END ==
PROVIDERS: Visit Provider Physician Assistant
DX: I10 Essential (primary) hypertension (principal); I25.118 Atherosclerotic heart disease of native coronary artery with other forms of angina pectoris; I48.0 Paroxysmal atrial fibrillation; Z79.01 Long term (current) use of anticoagulants; Z86.73 Personal history of transient ischemic attack (TIA), and cerebral infarction without residual deficits; Z95.0 Presence of cardiac pacemaker; E11.9 Type 2 diabetes mellitus without complications; Z79.899 Other long term (current) drug therapy; Z51.81 Encounter for therapeutic drug level monitoring; Z79.84 Long term (current) use of oral hypoglycemic drugs
CPT/HCPCS: 36415; 71046; 80048; 80061; 80076; 84439; 84443

== ENCOUNTER → 2022-05-10 14:08 | Outpatient (CLI) | payer MEDICARE, MEDICAID, SELFPAY ==
--- NOTE | 2022-05-10 14:35 | CT_ITS ---
FINAL REPORT CLINICAL HISTORY: F/U after new onset tremors. COMPARISON: September 08, 2020 FINDINGS: Axial images of the head were obtained without contrast. Coronal reformatted images were also obtained. This study was performed with techniques to keep radiation doses as low as reasonably achievable (ALARA). Individualized dose reduction techniques using automated exposure control or adjustment of mA and/or kV according to the patient''s size were employed. There is generalized age-appropriate atrophy. Periventricular low-attenuation areas are seen consistent with mild chronic ischemic changes. There is mild ventriculomegaly. There is a chronic left periventricular lacunar infarct. There is left occipital encephalomalacia consistent with a prior infarct that is new since the prior exam. There is no evidence of intracranial hemorrhage or mass. There is no evidence of acute infarct. There is no evidence of shift of the midline structures. No skull abnormality is seen on the bone window images. There is opacification of multiple left mastoid air cells. IMPRESSION: Atrophy and mild periventricular chronic ischemic changes. No acute intracranial abnormality identified. Chronic left mastoiditis. Reviewed, Interpreted and Dictated by Santiago Finley III, MD Transcribed by Camilo Cannon Authenticated and [facility]
== END ==
PROVIDERS: PCP Emergency Medicine; Visit Provider Nurse Practitioner Family
DX: H53.40 Unspecified visual field defects (principal)
CPT/HCPCS: 70450

== ENCOUNTER → 2022-05-19 08:50 | Outpatient (CLI) | payer MEDICARE, MEDICAID, SELFPAY ==
--- NOTE | 2022-05-19 08:59 | XR_ITS ---
FINAL REPORT CLINICAL HISTORY: right arm old fx - patient unable to pronate hand -- difficult exam FINDINGS: AP and lateral views of the right forearm are obtained. There is no prior exam for comparison. Osteopenia limits examination. There is no fracture of the radius or ulna. There is degenerative joint disease at the elbow and wrist. There is soft tissue edema along the posterior proximal forearm. IMPRESSION: Soft tissue edema with no acute osseous abnormality of the right forearm. Reviewed, Interpreted and Dictated by Pauly Pressley MD Transcribed by Kristin Candelario Authenticated and [facility]
== END ==
PROVIDERS: PCP Emergency Medicine; Visit Provider Orthopaedic Surgery
DX: M79.601 Pain in right arm (principal)
CPT/HCPCS: 73090

== ENCOUNTER → 2022-10-25 15:58 | Outpatient (CLI) | payer MEDICARE, MEDICAID, SELFPAY ==
[2022-10-25 17:07] LABS: Adenovirus F 40/41, stool Not Detected (NotDetected); Astrovirus Not Detected (NotDetected); Campylobacter Not Detected (NotDetected); Clostridium Difficile A/B, PCR Not Detected (NotDetected); Cryptosporidium Not Detected (NotDetected); Cyclospora Cayetanesis Not Detected (NotDetected); Entamoeba histolytica Not Detected (NotDetected); Enteroaggregative E coli Not Detected (NotDetected); Enteropathogenic E coli Not Detected (NotDetected); Enterotoxigenic E coli Not Detected (NotDetected); Giardia lamblia Not Detected (NotDetected); Norovirus Not Detected (NotDetected); Plesimonas Shigalloides, PCR Not Detected (NotDetected); Rotavirus A Not Detected (NotDetected); Salmonella, PCR Not Detected (NotDetected); Sapovirus Not Detected (NotDetected); Shiga-like toxin E coli Not Detected (NotDetected); Shigella Enterovasive E coli Not Detected (NotDetected); Vibrio Cholerae Not Detected (NotDetected); Vibrio, PCR Not Detected (NotDetected); Yersinia Entercolitica, PCR Not Detected (NotDetected)
== END ==
PROVIDERS: PCP Emergency Medicine; Visit Provider Emergency Medicine
DX: R19.7 Diarrhea, unspecified (principal)
CPT/HCPCS: 87507

== ENCOUNTER 2022-11-22 06:29 | Day surgery (SDC) | payer MEDICARE, MEDICAID, SELFPAY ==
[2022-11-22] VITALS (8 sets, daily range): BP systolic 144–182; BP diastolic 80–110; PULSE 69–76; RESP 16–19; TEMP 36.6; O2SAT 98–100; BMI 42.5
[2022-11-22 07:47] LABS: POC Glucose,Bedside 160 (70-110)
== END 2022-11-22 08:55 | disposition home or self-care (01) ==
PROVIDERS: PCP Emergency Medicine; Visit Provider Ophthalmology
DX: E11.36 Type 2 diabetes mellitus with diabetic cataract (principal); H25.9 Unspecified age-related cataract
CPT/HCPCS: 66984; 82962; V2632

== ENCOUNTER 2023-02-08 15:17 | Observation (INO) | payer MEDICARE, MEDICAID, SELFPAY ==
[2023-02-08 15:17] VITALS: BP 143/80; PULSE 97; RESP 19; TEMP 36.4; O2SAT 76; BMI 42.5
--- NOTE | 2023-02-08 15:21 | CT_ITS ---
PROCEDURE INFORMATION: Exam: CTA Chest With Contrast Exam date and time: 02/08/2023 5:20 PM Age: 72 years old Clinical indication: Other: Hypotension; Additional info: AMS, hypotension TECHNIQUE: Imaging protocol: Computed tomographic angiography of the chest with contrast. 3D rendering (Not supervised by radiologist): MIP and/or 3D reconstructed images were created by the technologist. Radiation optimization: All CT scans at this facility use at least one of these dose optimization techniques: automated exposure control; mA and/or kV adjustment per patient size (includes targeted exams where dose is matched to clinical indication); or iterative reconstruction. Contrast material: ISOVUE 370; Contrast volume: 75 ml; Contrast route: INTRAVENOUS (IV); REPORTING DATA: Count of CT and Cardiac NM exams in prior 12 months: This patient has received [address] and 0 known cardiac nuclear medicine studies in the 12 months prior to the current study. COMPARISON: CT CHEST WO/W CON 08/09/2021 8:53 AM FINDINGS: Tubes, catheters and devices: Pacemaker device Pulmonary arteries: There is suboptimal opacification of pulmonary arteries due to contrast bolus timing. Aorta: Regions of atherosclerotic vascular calcification involving the aortic arch. Lungs: Subsegmental atelectasis right lower lobe. Pleural spaces: Unremarkable. No pneumothorax. No pleural effusion. Heart: Unremarkable. No cardiomegaly. No pericardial effusion. Coronary arteries: Coronary artery calcification Lymph nodes: Unremarkable. No enlarged lymph nodes. Bones/joints: Unremarkable. No acute fracture. Soft tissues: Unremarkable. IMPRESSION: No large or central pulmonary embolus. Evaluation of the peripheral pulmonary arteries is limited.
--- NOTE | 2023-02-08 15:21 | CT_ITS ---
PROCEDURE INFORMATION: Exam: CT Abdomen And Pelvis With Contrast Exam date and time: 02/08/2023 5:20 PM Age: 72 years old Clinical indication: Other: AMS TECHNIQUE: Imaging protocol: Computed tomography of the abdomen and pelvis with contrast. Radiation optimization: All CT scans at this facility use at least one of these dose optimization techniques: automated exposure control; mA and/or kV adjustment per patient size (includes targeted exams where dose is matched to clinical indication); or iterative reconstruction. Contrast material: ISOVUE; Contrast volume: 75 ml; Contrast route: IV; REPORTING DATA: Count of CT and Cardiac NM exams in prior 12 months: This patient has received [address] and 0 known cardiac nuclear medicine studies in the 12 months prior to the current study. COMPARISON: CT ABDOMEN PELVIS W CON 01/14/2021 2:10 AM FINDINGS: Liver: Normal. No mass. Gallbladder and bile ducts: Normal. No calcified stones. No ductal dilation. Pancreas: Normal. No ductal dilation. Spleen: Normal. No splenomegaly. Adrenal glands: Normal. No mass. Kidneys and ureters: Chronic scarring and mild atrophic changes involving both kidneys again demonstrated. Stomach and bowel: Colonic diverticulosis. No evidence of diverticulitis. Appendix: No evidence of appendicitis. Intraperitoneal space: Unremarkable. No free air. No significant fluid collection. Vasculature: Moderate regions of atherosclerotic vascular calcification are demonstrated within the abdominal aorta and common iliac arteries. Lymph nodes: Incomplete visualization of anterior spot mediastinal lymph node measuring approximately 1.3 cm. Similar findings demonstrated on the previous examination. Delete that Urinary bladder: Unremarkable as visualized. Reproductive: Unremarkable as visualized. Bones/joints: Chronic L1 compression fracture deformity. Soft tissues: Bilateral fat filled inguinal hernias. Small fat filled umbilical hernia. Findings stable. IMPRESSION: 1. Colonic diverticulosis. No evidence of diverticulitis. 2. No evidence of acute abnormality.
--- NOTE | 2023-02-08 15:21 | CT_ITS ---
PROCEDURE INFORMATION: Exam: CT Head Without Contrast Exam date and time: 02/08/2023 5:17 PM Age: 72 years old Clinical indication: Altered mental status/memory loss; Additional info: AMS TECHNIQUE: Imaging protocol: Computed tomography of the head without contrast. Radiation optimization: All CT scans at this facility use at least one of these dose optimization techniques: automated exposure control; mA and/or kV adjustment per patient size (includes targeted exams where dose is matched to clinical indication); or iterative reconstruction. REPORTING DATA: Count of CT and Cardiac NM exams in prior 12 months: This patient has received [address] and 0 known cardiac nuclear medicine studies in the 12 months prior to the current study. COMPARISON: CT HEAD/BRAIN WO CON 05/10/2022 2:47 PM FINDINGS: Brain: Prominent sulci. Patchy hypodensity of the cerebral white matter which are nonspecific but likely secondary to microangiopathic changes. Left occipital encephalomalacia. Cerebral ventricles: The ventricles are prominent secondary to diffuse volume loss/atrophy. Paranasal sinuses: Bilateral maxillary mucous retention cyst. Mastoid air cells: Visualized mastoid air cells are well aerated. Bones/joints: Unremarkable. No acute fracture. Soft tissues: Unremarkable. IMPRESSION: Chronic age related and remote ischemic changes but no evidence of acute intracranial pathology. Remainder of findings as described above.
--- NOTE | 2023-02-08 15:39 | ECG_ITS ---
APPROVED REPORT Exam: Resting ECG HR:70 bpm ECG Measurements Heart Rate 70 AXES MN 194 P -20 QRSd 210 QRS -75 QT 482 T 90 QTc 502 Conclusion ELECTRONIC ATRIAL PACEMAKER ELECTRONIC VENTRICULAR PACEMAKER ABNORMAL RHYTHM ECG UNCONFIRMED REPORT Electronically signed by : Pérez Xiong MD 02/09/2023 21:39:59
[2023-02-08 16:37] LABS: Microscopic, Urine URINE MICROSCOPIC (MICROSCOPIC)
[2023-02-08 16:47] LABS: Appearance,Urine Clear (Clear); Color,Urine Yellow (Yellow); PH,Urine 5.5 (5.0-8.5)
[2023-02-08 16:48] LABS: Bilirubin,Urine 1+ (Negative); Blood, Urine Negative (Negative); Glucose,Urine (UA) Negative (Negative); Ketones,Urine 1+ (Negative); Leukocyte Esterase,Urine Negative (Negative); Nitrate,Urine Positive (Negative); Protein,Urine 1+ (Negative); Specific Gravity, Urine 1.025 (1.005-1.030); WBC,Urine Occasional #/hpf (0-3)
[2023-02-08 16:49] LABS: Bacteria,Urine 4+ /lpf
[2023-02-08 16:56] LABS: Alanine Aminotransferase 18 U/L (12-78); Albumin Level 3.2 g/dl (3.5-5.0); Alkaline Phosphatase 48 U/L (38-126); Anion Gap 14.9 mEq/L (5-15); Aspartate Amino Transferase 23 U/L (14-36); Bilirubin,Total 0.3 mg/dl (0.2-1.3); Blood Urea Nitrogen 24 mg/dl (7-17); Calcium 8.5 mg/dl (8.4-10.2); Carbon Dioxide 30 mmol/L (22.0-30.0); Chloride 98 mmol/L (98-107); Creatinine Clearance Estimated 29 mL/min (50-200); Estimated Glomerular Filt Rate 37 ml/min (>60); GFR (African American) 44 ML/MIN (>60); Globulin 3.2 g/dL (1.3-3.2); Glucose 155 mg/dl (74-100); Potassium 3.9 mmoL/L (3.5-5.1); Sodium 139 mmol/L (136-145); Total Protein,Serum 6.4 g/dl (6.3-8.2)
[2023-02-08 17:01] VITALS: BP 146/57; PULSE 70; O2SAT 97
[2023-02-08 17:09] LABS: Coronavirus 19, PCR Not Detected (NotDetected); Influenza A, PCR Not Detected (NotDetected); Influenza B, PCR Not Detected (NotDetected)
--- NOTE | 2023-02-08 18:17 | PC.NURSE ---
rounded on pt no complaints at this time
[2023-02-08 18:31] VITALS: BP 147/66; PULSE 70; O2SAT 97
--- NOTE | 2023-02-08 18:37 | PC.NURSE ---
ED MD SPEAKING WITH HOSPITALIST FOR ADMISSION
[2023-02-08 18:38] LABS: Hematocrit 37.6 % (37.0-47.0); Hemoglobin 11.9 g/dL (12.2-16.2); Mean Corpuscular Volume 93.5 fl (81-99); Red Blood Count 4.02 M/mm3 (4.20-5.40)
[2023-02-08 18:39] LABS: Basophils % 0.5 % (0.1-2.0); Eosinophils # 0.1 K/mm3 (0.0-0.4); Eosinophils % 1.6 % (0.1-12.0); Lymphocytes # 1.5 K/mm3 (0.7-4.5); Lymphocytes % 25.7 % (10-50); Mean Corpuscular HGB Conc 31.5 g/dL (31.8-35.4); Mean Corpuscular Hemoglobin 29.5 pg (27.0-31.2); Mean Platelet Volume 8.5 fl (7.4-10.4); Monocytes # 0.5 K/mm3 (0.1-1.0); Monocytes % 7.6 % (1.7-9.3); Neutrophils # 3.8 K/mm3 (1.8-7.8); Neutrophils % 63.3 % (37.0-80.0); Platelet Count 152 K/mm3 (142-424); Red Cell Distribution Width 15.5 % (11.5-17.5)
--- NOTE | 2023-02-08 18:40 | HMH.EDGENADL ---
Discharge Plan Disposition Patient Disposition: Admitted As Inpatient Condition: Fair Chief Complaint: Weakness Prescriptions Prescriptions: No Action carvedilol 6.25 mg tablet 6.25 mg PO BID amiodarone 200 mg tablet 200 mg PO DAILY Label Comments: TAKE 1 TABLET BY MOUTH ONCE DAILY FOR HEART RATE/ATRIAL FIBRILLATION hydrocodone-acetaminophen 5-325 mg tablet 1 tab PO Q8HP PRN (Reason: Pain) Label Comments: TAKE 1 TABLET BY MOUTH EVERY 8 HOURS NEEDED FOR MODERATE TO SEVERE PAIN divalproex 500 mg tablet,delayed release (DR/EC) 500 mg PO BID Label Comments: TAKE 1 TABLET BY MOUTH TWICE DAILY spironolactone 25 mg tablet 25 mg PO DIRECTED metformin 1,000 mg tablet 1,000 mg PO BID Label Comments: TAKE 1 TABLET BY MOUTH TWICE DAILY FOR DIABETES levothyroxine 150 mcg tablet 150 mcg PO AM Label Comments: TAKE 1 TABLET BY MOUTH ONCE DAILY FOR THYROID docusate sodium 100 mg capsule 100 mg PO DAILY Label Comments: TAKE 1 CAPSULE BY MOUTH ONCE DAILY FOR INDIGESTION/CONSTIPATION Xarelto 10 mg tablet 10 mg PO DAILY Label Comments: TAKE 1 TABLET BY MOUTH ONCE DAILY FOR BLOOD THINNER/ATRIAL FIBRILLATION Referrals Follow up/Referrals: Baltazar Sanders APRN [Primary Care Provider] - See instructions Print Language Print Language: Icelandic Discharge ED Provider: Jc Cruz Adult HPI General Chief complaint: Weakness Stated complaint: weakness Time Seen by Provider: 02/08/23 16:00 Mode of Arrival: EMS Source of Information: EMS Limitations: Physical Limitations Description of Symptoms (Recalled from ER Triage Doc. by RN): 72 F presents via EMS from home after family called out for generalized weakness and overall failure to thrive. Patient is obese. She is unable to complete ADL's on her own and according to EMS patient's home is very unkept. Patient arrives here smelling of urine and feces. She is pleasant, but hard of hearing. Oriented to person, but alert otherwise. History of Present Illness HPI narrative: Presents to the emergency department with altered mental status, declining state and concern for dehydration and decreased p.o. intake. The son states that over the last 5 to 7 days she is decline. Recently the patient was taken out of her assisted living and went to go live with her son. The son states that recently he does unable to care for her and called EMS today after she was more altered than her baseline. The patient is not able to provide any medical history or information at this time. Related Data Home Medications Medication Instructions Recorded Confirmed amiodarone 200 mg tablet 200 mg PO DAILY Heart rhythm 02/08/23 02/08/23 carvedilol 6.25 mg tablet 6.25 mg PO BID Heart rhythm 02/08/23 02/08/23 divalproex 500 mg tablet,delayed 500 mg PO BID Mood 02/08/23 02/08/23 release docusate sodium 100 mg capsule 100 mg PO DAILY Constipation 02/08/23 02/08/23 hydrocodone 5 mg-acetaminophen 325 1 tab PO Q8HP PRN Pain 02/08/23 02/08/23 mg tablet levothyroxine 150 mcg tablet 150 mcg PO AM Thyroid 02/08/23 02/08/23 metformin 1,000 mg tablet 1,000 mg PO BID Diabetes 02/08/23 02/08/23 rivaroxaban 10 mg tablet (Xarelto) 10 mg PO DAILY Blood thinner 02/08/23 02/08/23 spironolactone 25 mg tablet 25 mg PO DIRECTED Fluid 02/08/23 02/08/23 Allergies Allergy/AdvReac Type Severity Reaction Status Date / Time oxycodone [OXYCODONE] Allergy Severe MOUTH AND Verified 01/26/23 13:24 THROAT SWELL quetiapine [From SEROQUEL] Allergy Unknown Unknown Verified 01/26/23 13:24 allergy reaction [facility] Disclaimer: The information contained in this section may have been updated after the patient was seen, as this information can be updated by other users. Medical History CAD (coronary artery disease) Chronic renal insufficiency L[facility]NETTE
--- NOTE | 2023-02-08 18:40 | PC.NURSE ---
EMS MANAGER NOTIFIED OF ADMISSION
--- NOTE | 2023-02-08 18:48 | PC.NURSE ---
Attempted report. nurse not available
[2023-02-08 19:01] VITALS: BP 140/91; PULSE 70; RESP 17; TEMP 36.6; O2SAT 95
--- NOTE | 2023-02-08 19:01 | PC.NURSE ---
Report to NAY Veras
[2023-02-08 19:41] LABS: Hemoglobin A1C 6.8 % (4.0-6.0)
[2023-02-08 19:48] VITALS: BP 171/57; PULSE 74; RESP 18; TEMP 36.6; O2SAT 98; BMI 39.7
--- NOTE | 2023-02-08 19:48 | PC.NURSE ---
PT. Arrived to floor by stretcher at 19:40
[2023-02-08 20:00] VITALS: O2SAT 98
[2023-02-08 20:12] LABS: Thyroid Stimulating Hormone 0.43 uIU/mL (0.465-4.68)
--- NOTE | 2023-02-08 20:31 | EXP.HP ---
History of Present Illness *Admission Date: 02/08/23 *Reason for visit:: Generalized Weakness, Confusion *History of present illness: Ms. Lee is a 72-year-old female with a past medical history of Atrial Fibrillation on chronic anticoagulation, Hypothyroidsm, HTN, CKD and CAD. She presented to [facility] by EMS due to generalized weakness, confusion per chart review that family reports has been going on for 5-7 days. The patient was seen following admission to the Medical Surgical Floor. There is no family at bedside. The patient is oriented to person and can state that she is in a hospital. She denies knowing why she was brought into the hospital. Per Chart review the patient was taken out of an assited living facility to live with a son the reports that hs is unable to care for her. The son Maurice Flores was contacted by phone . He reports that the patient has a history of Dementia, but over the last 5-7 days that she has been confused outsider her normal, not eating and had some diarrhea. He reports that she has been unable to assist in her care. He reports that he is hoping that she can improve, get rehab and come back to live with him. He reports that he pays someone to stay with the patient while he works. In the ER on admission, the patient underwent a CBC that was unremarkable, CT of the head, CTA of the chest and CT of the abdomen and pelvis that showed no acute findings. CMP showed a creatinine of 1.40. Urinalysis was positive for nitrates and had 4 plus bacteria. The patient was admitted with initial impression: Encephalopathy, UTI. [facility] Disclaimer: The information contained in this section may have been updated after the patient was seen, as this information can be updated by other users. Medical History CAD (coronary artery disease) Chronic renal insufficiency DJD (degenerative joint disease), cervical DJD (degenerative joint disease), lumbar Dyspnea Parkinson disease Family History Other Cancer Coronary artery disease Social History (Updated 02/08/23 @ 23:03 by Rocio Hannah RN) Smoking Status: Former smoker alcohol intake: never substance use type: denies use current occupational status: disabled Travel in the last 8 weeks: None caregiver/support person: Yes household members: other housing: halfway current occupational exposures/hazards: No caffeine: Yes Review of Systems Review of Systems Review of systems:: unable to obtain *Neurologic Neurologic: Reports other (Mental status change) Meds Home Medications and Allergies Home Medications Medication Instructions Recorded Confirmed Type amiodarone 200 mg tablet 200 mg PO DAILY Heart rhythm 02/08/23 02/08/23 History carvedilol 6.25 mg tablet 6.25 mg PO BID Heart rhythm 02/08/23 02/08/23 History divalproex 500 mg tablet,delayed 500 mg PO BID Mood 02/08/23 02/08/23 History release docusate sodium 100 mg capsule 100 mg PO DAILY Constipation 02/08/23 02/08/23 History hydrocodone 5 mg-acetaminophen 325 1 tab PO Q8HP PRN Pain 02/08/23 02/08/23 History mg tablet levothyroxine 150 mcg tablet 150 mcg PO AM Thyroid 02/08/23 02/08/23 History metformin 1,000 mg tablet 1,000 mg PO BID Diabetes 02/08/23 02/08/23 History rivaroxaban 10 mg tablet (Xarelto) 10 mg PO DAILY Atrial fibrillation 02/08/23 02/08/23 History spironolactone 25 mg tablet 25 mg PO DIRECTED Fluid 02/08/23 02/08/23 History New Prescriptions to Start Prescriptions: Allergies Allergy/AdvReac Type Severity Reaction Status Date / Time oxycodone [OXYCODONE] Allergy Severe MOUTH AND Verified 01/26/23 13:24 THROAT SWELL quetiapine [From SEROQUEL] Allergy Unknown Unknown Verified 01/26/23 13:24 allergy reaction Exam Data for Last 24 hours Vital signs and Labs for Last 24 Hours:
[2023-02-08 22:09] LABS: POC Glucose,Bedside 94 (70-110)
--- NOTE | 2023-02-08 23:00 | PC.NURSE ---
ADMISSION ASSESSMENT PCS4 COMPLETED TO THE BEST OF MY ABILITY. PT IS CONFUSED AT THIS TIME.
[2023-02-09 04:00] VITALS: BP 145/65; PULSE 72; RESP 16; TEMP 36.7; O2SAT 100; BMI 39.7
[2023-02-09 06:13] LABS: POC Glucose,Bedside 105 (70-110)
[2023-02-09 06:22] LABS: Eosinophils # 0.1 K/mm3 (0.0-0.4); Mean Platelet Volume 8.8 fl (7.4-10.4); Monocytes # 0.4 K/mm3 (0.1-1.0); Neutrophils # 2.9 K/mm3 (1.8-7.8); Red Cell Distribution Width 15.6 % (11.5-17.5)
[2023-02-09 06:30] LABS: Basophils % 0.5 % (0.1-2.0); Eosinophils % 2.6 % (0.1-12.0); Hematocrit 33.7 % (37.0-47.0); Lymphocytes # 1.3 K/mm3 (0.7-4.5); Lymphocytes % 28.3 % (10-50); Mean Corpuscular HGB Conc 32.8 g/dL (31.8-35.4); Mean Corpuscular Hemoglobin 30.6 pg (27.0-31.2); Mean Corpuscular Volume 93.2 fl (81-99); Monocytes % 7.5 % (1.7-9.3); Neutrophils % 61.2 % (37.0-80.0); Platelet Count 99 K/mm3 (142-424); Red Blood Count 3.62 M/mm3 (4.20-5.40); White Blood Count 4.7 K/mm3 (4.8-10.8)
[2023-02-09 06:37] LABS: Hemoglobin 11.1 g/dL (12.2-16.2)
[2023-02-09 06:39] LABS: Alanine Aminotransferase 17 U/L (12-78); Albumin Level 2.8 g/dl (3.5-5.0); Albumin/Globulin Ratio 0.9 (1.1-1.8); Anion Gap 13.4 mEq/L (5-15); Aspartate Amino Transferase 29 U/L (14-36); Bilirubin,Total 0.6 mg/dl (0.2-1.3); Blood Urea Nitrogen 21 mg/dl (7-17); Calcium 7.9 mg/dl (8.4-10.2); Carbon Dioxide 27 mmol/L (22.0-30.0); Chloride 102 mmol/L (98-107); Chol/HDL Ratio 3.3 (1-3.5); Cholesterol 113 mg/dl (140-200); Creatinine Clearance Estimated 72 mL/min (50-200); Estimated Glomerular Filt Rate 49 ml/min (>60); GFR (African American) 59 ML/MIN (>60); Glucose 108 mg/dl (74-100); HDL Cholesterol 34 mg/dl (40-60); Magnesium 1.3 mg/dl (1.6-2.3); Potassium 4.4 mmoL/L (3.5-5.1); Sodium 138 mmol/L (136-145); Total Protein,Serum 5.8 g/dl (6.3-8.2); Triglycerides 218 mg/dl (30-150); VLDL Cholesterol 44 mg/dL (0-40)
[2023-02-09 06:50] LABS: Direct LDL Cholesterol 55.29 mg/dL (100-129)
[2023-02-09 06:58] LABS: Alkaline Phosphatase < 20 U/L (38-126)
--- NOTE | 2023-02-09 07:00 | PC.NURSE ---
PT REMAINS CONFUSED. WAS ABLE TO STATE HER NAME AND BIRTHDAY THIS AM. LUNG SOUNDS ARE CLEAR. SKIN IS C/D/I. VSS. BED ALARM IN PLACE. PT WAS RESISTIVE TO FINGER STICKS AT FIRST. CALL [facility] WITHIN REACH.
--- NOTE | 2023-02-09 07:12 | HMH.PHAINT1 ---
Pharmacy Intervention Comments: HOME MEDICATION LIST VERIFIED THROUGH LIST FROM OUTSIDE PHARMACY.
--- NOTE | 2023-02-09 07:52 | EXP.ACUTE.PN ---
Subjective *Date: 02/09/23 *Time: 11:56 Interval history: Patient oriented to self this morning. Interactive on exam. Further history obtained, she was at [facility] until about 2 months ago. Has been at home since. Stable on room air. No nausea or vomiting. Having bowel movements this morning, they are loose. Afebrile overnight Medical Exam Vital signs and Labs for Last 24 Hours: Vital Signs Temp Pulse Pulse Resp BP BP Pulse Ox 02/09/23 04:00 98.1 F 72 16 145/65 H 100 02/08/23 20:00 98 02/08/23 19:48 97.9 F 74 18 171/57 H 98 02/08/23 19:01 98 F 70 17 140/91 H 02/08/23 18:31 70 147/66 H 97 02/08/23 17:01 70 146/57 H 97 02/08/23 15:17 97.6 F 97 H 19 143/80 H 76 L Intake and Output 02/08/23 02/08/23 02/09/23 15:59 23:59 07:59 Other: Weight 108.862 kg 101.741 kg 101.741 kg Patient Weight 02/09/23 23:59 Weight 101.741 kg Laboratory Results - last 24 hr 02/08/23 15:23: Urine Color Yellow, Urine Appearance Clear, Urine pH 5.5, Ur Specific [place] 1.025, Urine Protein 1+, Urine Glucose (UA) Negative, Urine Ketones 1+, Urine Blood Negative, Urine Nitrate Positive A, Urine Bilirubin 1+ A, Urine Urobilinogen 1.0, Ur Leukocyte Esterase Negative, Urine RBC None, Urine WBC Occasional, Ur Squamous Epith Cells None, Urine Bacteria 4+ 02/08/23 15:23: WBC 6.0, RBC 4.02 L, Hgb 11.9 L, Hct 37.6, MCV 93.5, MCH 29.5, MCHC 31.5 L, RDW 15.5, Plt Count 152, MPV 8.5, Neut % (Auto) 63.3, Lymph % (Auto) 25.7, [place] % (Auto) 7.6, Eos % (Auto) 1.6, Baso % (Auto) 0.5, Neut # (Auto) 3.8, Lymph # (Auto) 1.5, [place] # (Auto) 0.5, Eos # (Auto) 0.1, Baso # (Auto) 0.0 02/08/23 15:23: Sodium 139, Potassium 3.9, Chloride 98, Carbon Dioxide 30, Anion Gap 14.9, BUN 24 H, Creatinine 1.40 H, Estimated Creat Clear 29, Estimated GFR 37 L, Est GFR ( Amer) 44 L, Glucose 155 H, Calcium 8.5, Total Bilirubin 0.3, AST 23, ALT 18, Alkaline Phosphatase 48, Total Protein 6.4, Albumin 3.2 L, Globulin 3.2, Albumin/Globulin Ratio 1.0 L 02/08/23 15:42: SARS-CoV-2 (PCR) Not detected, Influenza A Untype (PCR) Not detected, Influenza Type B (PCR) Not detected 02/08/23 19:10: Hemoglobin A1c 6.8 H 02/08/23 19:10: TSH 0.43 L 02/08/23 21:55: POC Glucose 94 02/09/23 06:06: POC Glucose 105 02/09/23 06:11: WBC 4.7 L, RBC 3.62 L, Hgb 11.1 L, Hct 33.7 L, MCV 93.2, MCH 30.6, MCHC 32.8, RDW 15.6, Plt Count 99 L D, MPV 8.8, Neut % (Auto) 61.2, Lymph % (Auto) 28.3, [place] % (Auto) 7.5, Eos % (Auto) 2.6, Baso % (Auto) 0.5, Neut # (Auto) 2.9, Lymph # (Auto) 1.3, [place] # (Auto) 0.4, Eos # (Auto) 0.1, Baso # (Auto) 0.0 02/09/23 06:11: Sodium 138, Potassium 4.4, Chloride 102, Carbon Dioxide 27, Anion Gap 13.4, BUN 21 H, Creatinine 1.10 H D, Estimated Creat Clear 72, Estimated GFR 49 L, Est GFR ( Amer) 59 D, Glucose 108 H D, Calcium 7.9 L, Magnesium 1.3 L, Total Bilirubin 0.6, AST 29 D, ALT 17, Alkaline Phosphatase < 20 L, Total Protein 5.8 L, Albumin 2.8 L D, Globulin 3.0, Albumin/Globulin Ratio 0.9 L, Triglycerides 218 H, Cholesterol 113 L, LDL Cholesterol Direct 55.29 L, VLDL Cholesterol 44 H, HDL Cholesterol 34 L, Cholesterol/HDL Ratio 3.3 I & O for Labs for Last 24 Hours: Intake & Output 02/06/23 02/07/23 02/08/23 02/09/23 23:59 23:59 23:59 23:59 Weight 101.741 kg 101.741 kg Microbiology Reports for the Last 24 Hours: Microbiology 02/08/23 15:23 Urine,Catheterized Urine Culture - Preliminary Gram Negative Rods Constitutional: Present no acute distress, obese and chronically ill appearing Head: Present atraumatic and normocephalic ENT: Present normal exam Neck: Present normal inspection Respiratory: Present normal respiratory effort; Absent rhonchi, wheezes or crackles Cardiac: Present Reg Rate and Rhythm GI: Present soft and normal bowel sounds; Absent distention or tenderness Rectal (female): Present normal inspection Extremities: Present normal inspection, full R
[2023-02-09 08:00] VITALS: BP 137/76; PULSE 71; RESP 17; TEMP 36.8; O2SAT 97
[2023-02-09 09:47] LABS: Adenovirus F 40/41, stool Not Detected (NotDetected); Astrovirus Not Detected (NotDetected); Campylobacter Not Detected (NotDetected); Clostridium Difficile A/B, PCR Not Detected (NotDetected); Cryptosporidium Not Detected (NotDetected); Cyclospora Cayetanesis Not Detected (NotDetected); Entamoeba histolytica Not Detected (NotDetected); Enteroaggregative E coli Not Detected (NotDetected); Enteropathogenic E coli Not Detected (NotDetected); Enterotoxigenic E coli Not Detected (NotDetected); Giardia lamblia Not Detected (NotDetected); Norovirus Not Detected (NotDetected); Plesimonas Shigalloides, PCR Not Detected (NotDetected); Rotavirus A Not Detected (NotDetected); Salmonella, PCR Not Detected (NotDetected); Sapovirus Not Detected (NotDetected); Shiga-like toxin E coli Not Detected (NotDetected); Shigella Enterovasive E coli Not Detected (NotDetected); Vibrio Cholerae Not Detected (NotDetected); Vibrio, PCR Not Detected (NotDetected); Yersinia Entercolitica, PCR Not Detected (NotDetected)
--- NOTE | 2023-02-09 09:55 | SW/DCPLANNER ---
Addendum entered by [facility] 02/10/23 11:39: Leyla peraza/ [facility] can accept this patient Medicaid tomorrow. I have updated Dr Orozco. Addendum entered by [facility] 02/10/23 11:21: [facility] is unable to accept this patient. Leyla peraza/ [facility] is currently reviewing information for Medicaid pending due to not having a qualifying stay. Addendum entered by [facility] 02/10/23 10:03: Alanna Morin and [facility] are currently reviewing patient information. Addendum entered by [facility] 02/09/23 14:19: Sonali w/ [facility] stated that she is unable to accept this patient. Karena peraza/ [facility] is currently reviewing patient information. Original Note: I spoke with patient's son regarding plans once medically stable for discharge. PT/OT evaluated patient and recommended SNF level of care. Patient's son is agreeable to placement and prefers that she return back to [facility] or [facility]. I will fax information to both facilities this AM. I did explain to patient's son that patient will have to go ICF level of care under Medicaid due to not having qualifying stay: son stated that he understands and concurs with this plan. Discharge date is unknown at this time.
--- NOTE | 2023-02-09 10:22 | HMH.OTEV ---
OT Inpatient Evaluation Rehab OT IP Evaluation Start: 02/08/23 18:42 Freq: ONCE Status: Active Protocol: Document 02/09/23 10:12 EVA (Rec: 02/09/23 10:21 EVA [id number]) Rehab OT IP Assessment Subjective History Ms. Lee is a 72-year-old female with a past medical history of Atrial Fibrillation on chronic anticoagulation, Hypothyroidsm, HTN, CKD and CAD. She presented to [facility] by EMS due to generalized weakness, confusion per chart review that family reports has been going on for 5-7 days. The patient was seen following admission to the Medical Surgical Floor. There is no family at bedside. The patient is oriented to person and can state that she is in a hospital. She denies knowing why she was brought into the hospital. Per Chart review the patient was taken out of an assited living facility to live with a son the reports that hs is unable to care for her. The son Maurice Flores was contacted by phone [phone]. He reports that the patient has a history of Dementia, but over the last 5- 7 days that she has been confused outsider her normal, not eating and had some diarrhea. He reports that she has been unable to assist in her care. He reports that he is hoping that she can improve , get rehab and come back to live with him. He reports that he pays someone to stay with the patient while he works. In the ER on admission, the patient underwent a CBC that was unremarkable, CT of the head, CTA of the chest a
[2023-02-09 11:21] LABS: POC Glucose,Bedside 129 (70-110)
--- NOTE | 2023-02-09 12:09 | HMH.PTEV ---
Physical Therapy Evaluation Rehab PT IP Evaluation Start: 02/09/23 05:37 Freq: ONCE Status: Active Protocol: Document 02/09/23 09:30 ALESHIADWIGHT (Rec: 02/09/23 12:09 PHOGENIE [id number]) Subjective/History History History 72 yowf adm to [facility] with AMS and UTI. She lives with her son who performs all ADLs for her at baseline and she is non -ambulatory. She uses a w/c for all mobility and is not able to propel it herself. PMH of Atrial Fibrillation on chronic anticoagulation, Hypothyroidsm, HTN, CKD and CAD. Subjective Subjective Pt c/o pain with all movement in bed. Rehab PT IP Eval Objective Appearance Patient Behavior Confused Patient Orientation Person Difficulty following instructions mild Speech Pattern Clear Ambulation Patient Able to Ambulate No Balance Ability to Arise Unable Sitting Balance Leans or slides in chair Dynamic Sitting Balance Ability Zero Transfers Bed Transfer Ability Total/Dependent (100%) Chair Transfer Ability Total/Dependent (100%) Rehab PT IP prob,goals,plan Problems Date of Evaluation: 02/09/23 PT IP Problems Bed Mobility,Transfers Rehab Potential Rehab Potential Fair Plan PT Intervention Plan Bed Mobility,Transfers, Therapeutic Exercise PT Plan Frequency Daily Duration LOS Discharge Goals Bed Transfer Ability Maximum x 2 (75% assist) Discharge Plan PT Discharge Plan Pt is most appropriate for rehab vs SNF placement once medically stable for d/c. G -code Required No Eval Complexity Eval Charge Codes 56450 - High Complexity PHYSICIAN CERTIFICATION: I certify the specified therapy services for Consuelo Lee are required, authorized, and reviewed every 30 days.
--- NOTE | 2023-02-09 13:16 | PC.NURSE ---
attempted multiple times to contact pt son by number listed in chart r/t bringing pt home meds. number provided isn't a working number.
[2023-02-09 14:14] VITALS: BMI 39.7
[2023-02-09 15:59] VITALS: BP 141/78; PULSE 70; RESP 17; TEMP 36.9; O2SAT 97
[2023-02-09 16:31] LABS: POC Glucose,Bedside 177 (70-110)
--- NOTE | 2023-02-09 17:23 | PC.NURSE ---
pt has been a&o to person. RA. 20g left hand. loose stools multiple times. irritation under breast, belly fold, nystain/zinc applied at 1630. pt bed in lowest position and call light within reach.
[2023-02-09 20:00] VITALS: BP 168/94; PULSE 78; RESP 17; TEMP 36.6; O2SAT 98
[2023-02-09 20:22] LABS: POC Glucose,Bedside 133 (70-110)
[2023-02-10 04:00] VITALS: BP 177/87; PULSE 71; RESP 17; TEMP 37.2; O2SAT 95; BMI 39.8
--- NOTE | 2023-02-10 04:37 | PC.NURSE ---
pt has rested well this shift. no complaints noted. vss.
[2023-02-10 06:08] LABS: Basophils % 0.3 % (0.1-2.0); Eosinophils # 0.1 K/mm3 (0.0-0.4); Eosinophils % 1.9 % (0.1-12.0); Hematocrit 33.7 % (37.0-47.0); Lymphocytes % 36.5 % (10-50); Mean Corpuscular HGB Conc 32.7 g/dL (31.8-35.4); Mean Corpuscular Hemoglobin 30.1 pg (27.0-31.2); Mean Corpuscular Volume 91.9 fl (81-99); Mean Platelet Volume 8.7 fl (7.4-10.4); Monocytes # 0.4 K/mm3 (0.1-1.0); Monocytes % 8.1 % (1.7-9.3); Neutrophils # 2.9 K/mm3 (1.8-7.8); Neutrophils % 53.1 % (37.0-80.0); Platelet Count 148 K/mm3 (142-424); Red Blood Count 3.67 M/mm3 (4.20-5.40); Red Cell Distribution Width 15.6 % (11.5-17.5); White Blood Count 5.4 K/mm3 (4.8-10.8)
[2023-02-10 06:17] LABS: Anion Gap 14.1 mEq/L (5-15); Blood Urea Nitrogen 18 mg/dl (7-17); Calcium 8.3 mg/dl (8.4-10.2); Carbon Dioxide 28 mmol/L (22.0-30.0); Chloride 99 mmol/L (98-107); Creatinine Clearance Estimated 78 mL/min (50-200); Estimated Glomerular Filt Rate 54 ml/min (>60); GFR (African American) 65 ML/MIN (>60); Glucose 93 mg/dl (74-100); Magnesium 1.5 mg/dl (1.6-2.3); Potassium 4.1 mmoL/L (3.5-5.1); Sodium 137 mmol/L (136-145)
[2023-02-10 06:31] LABS: POC Glucose,Bedside 97 (70-110)
[2023-02-10 08:00] VITALS: BP 165/90; PULSE 71; RESP 18; TEMP 37.1; O2SAT 97
--- NOTE | 2023-02-10 09:41 | CA_ITS ---
FINAL REPORT TECHNIQUE: Color Doppler, duplex Doppler and compression sonography of the left lower extremity deep venous systems was performed. CLINICAL HISTORY: swelling, redness, anticoagulated secondary to AFIB, AMS, patient was confused and agitated throughout exam. Limited scan performed. obesity, HTN, HLD. FINDINGS: Exam is technically limited secondary to patient cooperation. There is no evidence of deep venous thrombosis from the level of the groin to the calf. The veins are patent and compressible. IMPRESSION: Limited exam with no evidence of deep venous thrombosis left lower extremity. Reviewed, Interpreted and Dictated by Santiago Finley III, MD Transcribed by Irma Barr Authenticated and [facility]
--- NOTE | 2023-02-10 10:01 | PC.NURSE ---
COURTESY TECH NOTE; ROUNDED ON PT, ASSISTED PT WITH BREAKFAST MEAL, ASSISTED PT TO REPOSITION, WITH DRINK, INTAKE OF 240 ML. WARM BLANKET BROUGHT AT PT REQUEST. PT DENIED NEED FOR RESTROOM. CALL LIGHT WITHIN REACH, NO FURTHER REQUESTS AT THIS TIME. Trell TRONCOSO, SRNA
[2023-02-10 11:15] LABS: POC Glucose,Bedside 102 (70-110)
[2023-02-10 15:29] VITALS: BP 122/51; PULSE 71; RESP 18; TEMP 36.8; O2SAT 97
--- NOTE | 2023-02-10 15:42 | PC.NURSE ---
Pt has had a good day today. She rested comfortable in bed. Patient is alert to self. She stood up with PT today. R lower leg was swollen,warm and red this morning upon assessment. was notifed, see orders.
[2023-02-10 17:21] LABS: POC Glucose,Bedside 117 (70-110)
--- NOTE | 2023-02-10 19:23 | EXP.ACUTE.PN ---
Subjective *Date: 02/10/23 *Time: 19:23 Interval history: Patient pleasantly confused on exam this morning. Stable on room air. Tolerating p.o. intake. Noted to have some swelling of right leg, mild redness. No nausea, vomiting, chest pain. Medical Exam Vital signs and Labs for Last 24 Hours: Vital Signs Temp Pulse Resp BP Pulse Ox 02/10/23 15:29 98.3 F 71 18 122/51 L 97 02/10/23 08:00 98.7 F 71 18 165/90 H 97 02/10/23 04:00 98.9 F 71 17 177/87 H 95 02/09/23 20:00 97.9 F 78 17 168/94 H 98 Intake and Output 02/10/23 02/10/23 02/10/23 07:59 15:59 23:59 Intake Total 300 / 300 Output Total 300 / 600 300 / 600 Balance -300 / -300 0 / -300 Intake: Intake, Oral Amount 300 / 300 Output: Output, Urine Amount 300 / 600 300 / 600 Other: Number of Unmeasured Voids 0 Number of Bowel Movements 1 1 Weight 101.877 kg Patient Weight 02/10/23 23:59 Weight 101.877 kg Laboratory Results - last 24 hr 02/09/23 20:15: POC Glucose 133 H 02/10/23 05:44: WBC 5.4, RBC 3.67 L, Hgb 11.0 L, Hct 33.7 L, MCV 91.9, MCH 30.1, MCHC 32.7, RDW 15.6, Plt Count 148 D, MPV 8.7, Neut % (Auto) 53.1, Lymph % (Auto) 36.5, [place] % (Auto) 8.1, Eos % (Auto) 1.9, Baso % (Auto) 0.3, Neut # (Auto) 2.9, Lymph # (Auto) 2.0, [place] # (Auto) 0.4, Eos # (Auto) 0.1, Baso # (Auto) 0.0 02/10/23 05:44: Sodium 137, Potassium 4.1, Chloride 99, Carbon Dioxide 28, Anion Gap 14.1, BUN 18 H, Creatinine 1.00, Estimated Creat Clear 78, Estimated GFR 54 L, Est GFR ( Amer) 65, Glucose 93, Calcium 8.3 L, Magnesium 1.5 L D 02/10/23 06:13: POC Glucose 97 02/10/23 11:02: POC Glucose 102 02/10/23 16:52: POC Glucose 117 H I & O for Labs for Last 24 Hours: Intake & Output 02/07/23 02/08/23 02/09/23 02/10/23 23:59 23:59 23:59 23:59 Intake Total 360 / 360 300 / 300 Output Total 450 / 450 600 / 600 Balance -90 / -90 -300 / -300 Weight 101.741 kg 101.7 kg 101.877 kg Microbiology Reports for the Last 24 Hours: Microbiology 02/08/23 15:23 Urine,Catheterized Urine Culture - Final Escherichia coli Constitutional: Present no acute distress, obese and chronically ill appearing Head: Present atraumatic and normocephalic ENT: Present normal exam Neck: Present normal inspection Respiratory: Present normal respiratory effort; Absent rhonchi, wheezes or crackles Cardiac: Present Reg Rate and Rhythm GI: Present soft and normal bowel sounds; Absent distention or tenderness Rectal (female): Present normal inspection Extremities: Present normal inspection, full ROM, tenderness and edema (1+ to knee on the left, 3+ right lower extremity to knee) Skin: Present intact and erythema (Under breasts and abdominal fold) Neuro: Present Grossly Intact, alert, awake and moves all extremities Assessment and Plan *Assessment and plan (1) Encephalopathy: Status: Acute Category: Medical Code(s): G93.40 - Encephalopathy, unspecified (2) UTI (urinary tract infection): Status: Acute Category: Medical Code(s): N39.0 - Urinary tract infection, site not specified (3) Atrial fibrillation: Status: Acute Category: Medical Code(s): I48.91 - Unspecified atrial fibrillation (4) Diabetes: Status: Acute Category: Medical Code(s): E11.9 - Type 2 diabetes mellitus without complications (5) Obesity: Status: Acute Category: Medical Code(s): E66.9 - Obesity, unspecified (6) Diarrhea: Status: Acute Category: Medical Code(s): R19.7 - Diarrhea, unspecified (7) Hypomagnesemia: Status: Acute Category: Medical Code(s): E83.42 - Hypomagnesemia (8) Edema: Status: Acute Category: Medical Code(s): R60.9 - Edema, unspecified Plan 72-year-old female with reported history of Dementia, Atrial Fibrillation, Diabetes, Obesity presents due to confusion outside her nor
[2023-02-10 20:00] VITALS: BP 143/57; PULSE 71; RESP 18; TEMP 36.9; O2SAT 95
[2023-02-10 20:00] LABS: POC Glucose,Bedside 135 (70-110)
--- NOTE | 2023-02-10 20:35 | PC.NURSE ---
She is alert to person but was able to state that she is in a hospital but did not know the name or location. She is a right limb alert. Per staff and her, her last BM was today. She reports pain in her right leg but is unable to rate it. Per FACES pain scale-6. Her left able bodied tankerman is stronger than her right. Frequent tremors of RUE. She continues on RA. Voids per [place]. Her urine is jorden, clear. FSBS tonight was 135.
[2023-02-11 04:00] VITALS: BP 131/52; PULSE 70; RESP 18; TEMP 36.8; O2SAT 94; BMI 40.1
[2023-02-11 05:33] LABS: POC Glucose,Bedside 111 (70-110)
--- NOTE | 2023-02-11 07:30 | EXP.DC.SUM ---
General Admission date:: 02/08/23 Discharge date: 02/11/23 HPI HPI HPI: Ms. Lee is a 72-year-old female with a past medical history of Atrial Fibrillation on chronic anticoagulation, Hypothyroidsm, HTN, CKD and CAD. She presented to [facility] by EMS due to generalized weakness, confusion per chart review that family reports has been going on for 5-7 days. The patient was seen following admission to the Medical Surgical Floor. There is no family at bedside. The patient is oriented to person and can state that she is in a hospital. She denies knowing why she was brought into the hospital. Per Chart review the patient was taken out of an assited living facility to live with a son the reports that hs is unable to care for her. The son Maurice Flores was contacted by phone . He reports that the patient has a history of Dementia, but over the last 5-7 days that she has been confused outsider her normal, not eating and had some diarrhea. He reports that she has been unable to assist in her care. He reports that he is hoping that she can improve, get rehab and come back to live with him. He reports that he pays someone to stay with the patient while he works. In the ER on admission, the patient underwent a CBC that was unremarkable, CT of the head, CTA of the chest and CT of the abdomen and pelvis that showed no acute findings. CMP showed a creatinine of 1.40. Urinalysis was positive for nitrates and had 4 plus bacteria. The patient was admitted with initial impression: Encephalopathy, UTI. Hospital Course Hospital Course Hospital Course: 72-year-old female with reported history of Dementia, Atrial Fibrillation, Diabetes, Obesity presents due to confusion outside her normal, weakness and not participating in her care. Found to have UTI. Has improved to baseline mentation since initiating treatment. Stable for discharge to nursing facility. Problems addressed as follows: - Encephalopathy, resolved -UTI Back to baseline mentation, within 24 hours of initiating antibiotics. Has dementia but has been pleasant with no mood outbursts. Confusion likely secondary to her UTI versus her high-dose Depakote. Initiated on ceftriaxone on admission. Urine culture returned positive for E. coli, sensitive to cephalosporins. Resistant to fluoroquinolones. Will transition to oral cefdinir for 4 more days to complete 7-day total course as she was reportedly on antibiotics prior to even coming into the hospital and still had significant UTI. First dose of cefdinir due this evening. Last dose should be given in the morning on 02/15. PT and OT evaluated Ms. Lee. Recommended placement for rehab and skilled therapy. Patient is graciously been accepted by [facility] in [place]. Discharging today to their care. - Atrial Fibrillation -Lower extremity edema Has remained in controlled rate during admission. Continued her carvedilol, amiodarone, Xarelto. Did have some lower extremity edema. Ultrasound of the right lower extremity was negative for DVT. Treated with Lasix as needed. Recommend continuing Lasix every other day. Patient reportedly on divalproex for mood when she came in. Taking 500 mg twice a day. Valproic acid level was obtained however has not returned by time of discharge. On presentation there was initial concern that this is part of her somnolence. She has been in a pleasant mood the entire admission and has not had any behavioral concerns. Do not have any indication to continue this medication at this time. If it does need to be restarted however, would consider significantly lower dose such as 100-200 mg twice daily. - Diabetes: A1c obtained on admission, 6.8. Well-controlled at this time. Continue her home metformin. Treated with [place] admission however well controlled on home regimen. Continue metformin 1000 mg twice daily at discharge. Loose stools when she came in, di
[2023-02-11 07:49] VITALS: BP 125/99; PULSE 71; RESP 18; TEMP 36.9; O2SAT 95
--- NOTE | 2023-02-11 09:15 | PC.NURSE ---
attempted to call report to [facility]. They are unable to receive at this time.
--- NOTE | 2023-02-11 09:43 | PC.NURSE ---
attempted to call report. They state nurse is unavailable
--- NOTE | 2023-02-11 10:26 | PC.NURSE ---
report called to [facility] in [place]. Pts Son contacted regarding pt discharge.
--- NOTE | 2023-02-13 14:19 | CARE MANAGER ---
Spoke to patient's son, who states that patient is doing well @ [facility] in [place]. No complaints voiced at time of call.
== END 2023-02-11 11:15 ==
LOC: ER 15:22 → 2ND 18:49
PROVIDERS: Admitting Provider Internal Medicine Adolescent Medicine; Emergency Provider Emergency Medicine; PCP Nurse Practitioner Family; Visit Provider Internal Medicine Adolescent Medicine
DX: N39.0 Urinary tract infection, site not specified (principal); I48.91 Unspecified atrial fibrillation; E11.9 Type 2 diabetes mellitus without complications; E83.42 Hypomagnesemia; Z87.891 Personal history of nicotine dependence; Z79.01 Long term (current) use of anticoagulants; Z79.899 Other long term (current) drug therapy; I25.10 Atherosclerotic heart disease of native coronary artery without angina pectoris; Z79.84 Long term (current) use of oral hypoglycemic drugs; E03.9 Hypothyroidism, unspecified; R19.7 Diarrhea, unspecified; R62.7 Adult failure to thrive; F03.90 Unspecified dementia, unspecified severity, without behavioral disturbance, psychotic disturbance, mood disturbance, and anxiety; I10 Essential (primary) hypertension
CPT/HCPCS: G0378; 36415; 70450; 71275; 74177; 80048; 80053; 80061; 80165; 81001; 82962; 83036; 83735; 84443; 85025; 87081; 87086; 87088; 87186; 87507; 87635; 87636; 93005; 93971; 97110; 97163; 97165; 97530; 99285; C9803; J0696; J3475; Q9967; U0003; U0005

== ENCOUNTER 2023-04-14 23:21 | Inpatient (IN) | payer MEDICARE, MEDICAID, SELFPAY ==
[2023-04-14 23:22] VITALS: BP 110/55; PULSE 77; RESP 16; TEMP 37; O2SAT 97; BMI 32.5
--- NOTE | 2023-04-14 23:35 | XR_ITS ---
PROCEDURE INFORMATION: Exam: XR Chest Exam date and time: 04/15/2023 12:14 AM Age: 73 years old Clinical indication: Other: Weakness TECHNIQUE: Imaging protocol: Radiologic exam of the chest. Views: 1 view. COMPARISON: CT ANGIO CHEST PE PROTOCOL 02/08/2023 5:20 PM FINDINGS: Tubes, catheters and devices: Dual lead pacing device enters from the left. Lungs: Mild right basilar atelectasis.. No consolidation. Pleural spaces: Unremarkable. No pleural effusion. No pneumothorax. Heart/Mediastinum: Unremarkable. No cardiomegaly. Vasculature: Unremarkable. Diaphragm: Elevated right hemidiaphragm. Bones/joints: Old healed proximal right humeral fracture. IMPRESSION: Mild right basilar atelectasis.
--- NOTE | 2023-04-14 23:54 | HMH.EDGENADL ---
Discharge Plan Disposition Patient Disposition: Admitted Condition: Serious Chief Complaint: Recheck/Abnormal Lab/Rx Clinical Impressions Clinical Impression: Acute UTI, AKILA (acute kidney injury) Sepsis Qualifiers: Sepsis type: sepsis due to unspecified organism Sepsis acute organ dysfunction status: with acute organ dysfunction Severe sepsis acute organ dysfunction type: acute renal failure Acute renal failure type: unspecified Severe sepsis shock status: without septic shock Qualified Code(s): A41.9 - Sepsis, unspecified organism; R65.20 - Severe sepsis without septic shock; N17.9 - Acute kidney failure, unspecified Discharge ED Provider: Omer Natarajan General Adult HPI General Chief complaint: Recheck/Abnormal Lab/Rx Stated complaint: Abnormal labs Time Seen by Provider: 04/14/23 23:27 Mode of Arrival: EMS Source of Information: Patient Limitations: No Limitations Description of Symptoms (Recalled from ER Triage Doc. by RN): pt is a new resident of [facility] and has critical lab results from routine labs. BUN 77 creatinine 3.1 GFR 18 potassium 3.4 pt has no c/o History of Present Illness HPI narrative: This is a 73-year-old female with history of obesity, diabetes, A-fib on Xarelto, CAD, CHF, pacemaker placement and dementia presenting with concern for critical labs. Patient has no complaints other than intermittent vomiting. Nonbloody, nonbilious. Denies diarrhea. No fevers or chills, dysuria, hematuria, flank pain, cough, chest pain, shortness of breath. Patient is tolerating p.o. intake. Related Data Home Medications Medication Instructions Recorded Confirmed amiodarone 200 mg tablet 200 mg PO DAILY Heart rhythm 02/08/23 02/08/23 carvedilol 6.25 mg tablet 6.25 mg PO BID High blood pressure 02/08/23 02/08/23 levothyroxine 150 mcg tablet 150 mcg PO AM Thyroid 02/08/23 02/08/23 metformin 1,000 mg tablet 1,000 mg PO BID Diabetes 02/08/23 02/08/23 Previous Rx's Medication Instructions Recorded docusate sodium 100 mg capsule 100 mg PO DAILY PRN Constipation 02/09/23 #30 caps rivaroxaban 10 mg tablet (Xarelto) 20 mg PO QPMWITHMEAL #0 tabs 02/09/23 cefdinir 300 mg capsule 300 mg PO BID 4 days #8 caps 02/11/23 furosemide 20 mg tablet (Lasix) 20 mg PO .QOD 30 days #15 tabs 02/11/23 lisinopril 5 mg tablet 5 mg PO DAILY 30 days #0 tabs 02/11/23 Allergies Allergy/AdvReac Type Severity Reaction Status Date / Time oxycodone [OXYCODONE] Allergy Severe MOUTH AND Verified 01/26/23 13:24 THROAT SWELL quetiapine [From SEROQUEL] Allergy Unknown Unknown Verified 01/26/23 13:24 allergy reaction PFSH [facility] Disclaimer: The information contained in this section may have been updated after the patient was seen, as this information can be updated by other users. Medical History CAD (coronary artery disease) Chronic renal insufficiency DJD (degenerative joint disease), cervical DJD (degenerative joint disease), lumbar Dyspnea Parkinson disease Family History Other Cancer Coronary artery disease Social History (Updated 02/08/23 @ 23:03 by Rocio Hannah RN) Smoking Status: Unknown if ever smoked alcohol intake: never substance use type: denies use current occupational status: disabled Travel in the last 8 weeks: None caregiver/support person: Yes household members: other housing: detention current occupational exposures/hazards: No caffeine: Yes ROS Obtained: Yes All systems reviewed & no additional complaints except as documented Physical Exam General General appearance: alert, in no apparent distress, obese and other (Chronically ill-appearing) Head Head exam: atraumatic and normocephalic ENT ENT exam: Present mucous membranes dry Neck Neck exam: Present normal inspection and full ROM Chest Chest inspection: Present symmetric chest wall rise an
--- NOTE | 2023-04-14 23:55 | CT_ITS ---
PROCEDURE INFORMATION: Exam: CT Abdomen And Pelvis Without Contrast Exam date and time: 04/15/2023 12:26 AM Age: 73 years old Clinical indication: Abdominal pain; Additional info: Abd pain, serena TECHNIQUE: Imaging protocol: Computed tomography of the abdomen and pelvis without contrast. Radiation optimization: All CT scans at this facility use at least one of these dose optimization techniques: automated exposure control; mA and/or kV adjustment per patient size (includes targeted exams where dose is matched to clinical indication); or iterative reconstruction. REPORTING DATA: Count of CT and Cardiac NM exams in prior 12 months: This patient has received 4 known CTs and 0 known cardiac nuclear medicine studies in the 12 months prior to the current study. COMPARISON: CT ABDOMEN PELVIS W CON 02/08/2023 5:20 PM FINDINGS: Lungs: Mild right basilar atelectasis. Diaphragm: Elevated right hemidiaphragm. Liver: Normal. No mass. Gallbladder and bile ducts: The gallbladder is absent. There is no biliary ductal dilation. Pancreas: There is diffuse pancreatic atrophy without acute or focal finding. Spleen: Normal. No splenomegaly. Adrenal glands: Normal. No mass. Kidneys and ureters: 5 mm cortical calcification lower left kidney. 2 mm right intrarenal calculus. There is no hydronephrosis. The ureters are normal. Stomach and bowel: Diffuse diverticulosis is present without inflammation. No obstruction. No mucosal thickening. Appendix: No evidence of appendicitis. The appendix is not identified as a discrete structure however, there is no inflammatory process in the region of the cecum. Intraperitoneal space: Unremarkable. No free air. No significant fluid collection. Vasculature: There is moderate calcific atherosclerotic disease without aneurysmal dilation of the aorta. Lymph nodes: Unremarkable. No enlarged lymph nodes. Urinary bladder: Unremarkable as visualized. Reproductive: Unremarkable as visualized. Bones/joints: Unremarkable. No acute fracture. Soft tissues: A tiny fat containing umbilical hernia is noted. IMPRESSION: 1. There is no acute process evident within the abdomen or pelvis. 2. Nonurgent findings as detailed.
[2023-04-15] VITALS (8 sets, daily range): BP systolic 92–145; BP diastolic 50–80; PULSE 70–77; RESP 16–20; TEMP 36.4–37; O2SAT 97–100; BMI 325087.6
--- NOTE | 2023-04-15 00:14 | ECG_ITS ---
APPROVED REPORT Exam: Resting ECG HR:74 bpm ECG Measurements Heart Rate 74 AXES TN 229 P 93 QRSd 202 QRS -80 QT 517 T 89 QTc 544 Conclusion ELECTRONIC ATRIAL PACEMAKER ELECTRONIC VENTRICULAR PACEMAKER ABNORMAL RHYTHM ECG UNCONFIRMED REPORT Electronically signed by : Pérez Xiong MD 04/15/2023 13:08:55
[2023-04-15 00:55] LABS: Chloride 106 mmol/L (98-107); Potassium 3.7 mmoL/L (3.5-5.1); Sodium 138 mmol/L (136-145)
[2023-04-15 00:58] LABS: Alanine Aminotransferase 28 U/L (12-78); Alkaline Phosphatase 69 U/L (38-126); Anion Gap 26.7 mEq/L (5-15); Aspartate Amino Transferase 26 U/L (14-36); Bilirubin,Total 0.4 mg/dl (0.2-1.3); Blood Urea Nitrogen 78 mg/dl (7-17); Calcium 8.7 mg/dl (8.4-10.2); Creatinine Clearance Estimated 19 mL/min (50-200); Estimated Glomerular Filt Rate 12 ml/min (>60); GFR (African American) 14 ML/MIN (>60); Glucose 132 mg/dl (74-100); Lipase 418 U/L (23-300)
[2023-04-15 00:59] LABS: Albumin Level 3.8 g/dl (3.5-5.0); Albumin/Globulin Ratio 1.1 (1.1-1.8); Globulin 3.6 g/dL (1.3-3.2); Total Protein,Serum 7.4 g/dl (6.3-8.2)
[2023-04-15 01:11] LABS: Carbon Dioxide 9 mmol/L (22.0-30.0); Creatine Kinase < 20 U/L (30-135)
--- NOTE | 2023-04-15 01:13 | PC.NURSE ---
notified MD of critical lactic 5.0 and CO2 9
[2023-04-15 01:14] LABS: Basophils % 0.3 % (0.1-2.0); Eosinophils # 0.1 K/mm3 (0.0-0.4); Eosinophils % 1.3 % (0.1-12.0); Hemoglobin 13.7 g/dL (12.2-16.2); Lymphocytes # 2.1 K/mm3 (0.7-4.5); Lymphocytes % 20.5 % (10-50); Mean Corpuscular Hemoglobin 28.7 pg (27.0-31.2); Mean Corpuscular Volume 89.9 fl (81-99); Mean Platelet Volume 8.9 fl (7.4-10.4); Monocytes # 0.4 K/mm3 (0.1-1.0); Monocytes % 3.8 % (1.7-9.3); Neutrophils # 7.5 K/mm3 (1.8-7.8); Platelet Count 232 K/mm3 (142-424); Red Blood Count 4.78 M/mm3 (4.20-5.40); Red Cell Distribution Width 16.1 % (11.5-17.5); White Blood Count 10.2 K/mm3 (4.8-10.8)
[2023-04-15 01:28] LABS: Microscopic, Urine URINE MICROSCOPIC (MICROSCOPIC)
[2023-04-15 01:31] LABS: Appearance,Urine TURBID (Clear); Bilirubin,Urine Negative (Negative); Blood, Urine 1+ (Negative); Color,Urine YELLOW (Yellow); Glucose,Urine (UA) Negative (Negative); Ketones,Urine TRACE (Negative); Leukocyte Esterase,Urine 3+ (Negative); Nitrate,Urine Negative (Negative); Protein,Urine 2+ (Negative); Specific Gravity, Urine 1.015 (1.005-1.030); Urobilinogen,Urine 0.2 EU/dl (0.2)
--- NOTE | 2023-04-15 01:36 | PC.NURSE ---
Registration notified of admission. Pt assigned to room 215 for Urosepsis and AKILA to the hospitalist. OBS.
--- NOTE | 2023-04-15 01:38 | PC.NURSE ---
on phone with hospitalist
[2023-04-15 01:43] LABS: NT Pro Brain Natriuretic Pep. 5500 pg/mL (0-450)
[2023-04-15 01:45] LABS: Bacteria,Urine 4+ /lpf; RBC,Urine Occasional #/hpf (0-3)
[2023-04-15 02:03] LABS: Troponin I 0.02 ng/ml (0.00-0.034)
--- NOTE | 2023-04-15 02:23 | PC.NURSE ---
Pt arrived to floor via stretcher @ 0912
--- NOTE | 2023-04-15 02:27 | EXP.HP ---
History of Present Illness *Admission Date: 04/15/23 *Reason for visit:: AKILA/ UTI *History of present illness: 73 year old female presents to the ED from [facility] for abnormal labs. Upon pt's arrival she only c/o intermittent vomiting. PMHX of CAD, DM, Atrial Fib, Obesity, and edema. In the ED the patient's lab work revealed a metabolic acidosis with CO2 of 9. AKILA w/ creatinine of 3.7, Lactate 5.0, BNP 5500, Lipase of 418, urine positive for leukocyte esterase, and anion gap of 26.7. The patient's abdominal CT was unremarkable. The pt has a hx of E coli in her urine cultures. Due to the risk of decompensation, the ED physician spoke with the hospitalist team for admission. The patient will be admitted to the medical floor for further treatment of her UTI and AKILA. She was started on cefepime and vancomycin. Upon my assessment the patient remains hemodynamically stable, afebrile, and is confused. She is unable to tell me what year or provide a medical history. [facility] Disclaimer: The information contained in this section may have been updated after the patient was seen, as this information can be updated by other users. Medical History CAD (coronary artery disease) Chronic renal insufficiency DJD (degenerative joint disease), cervical DJD (degenerative joint disease), lumbar Dyspnea Parkinson disease Family History Other Cancer Coronary artery disease Social History (Updated 02/08/23 @ 23:03 by Rocio Hannah RN) Smoking Status: Unknown if ever smoked alcohol intake: never substance use type: denies use current occupational status: disabled Travel in the last 8 weeks: None caregiver/support person: Yes household members: other housing: senior care current occupational exposures/hazards: No caffeine: Yes Review of Systems Review of Systems Review of systems:: unable to obtain Constitutional Constitutional: Reports as per HPI Eyes Eyes: Reports system reviewed and no additional complaints, except as documented ENT Ears, Nose, Mouth, and Throat: Reports system reviewed and no additional complaints, except as documented *Cardiovascular Cardiovascular: Reports system reviewed and no additional complaints, except as documented *Respiratory Respiratory: Reports system reviewed and no additional complaints, except as documented *Gastrointestinal Gastrointestinal: Reports system reviewed and no additional complaints, except as documented *Genitourinary Genitourinary: Reports system reviewed and no additional complaints, except as documented *Musculoskeletal Musculoskeletal: Reports system reviewed and no additional complaints, except as documented Integumentary/Breasts Skin/Breast: Reports system reviewed and no additional complaints, except as documented *Neurologic Neurologic: Reports as per HPI and Reports confusion Psychiatric Psychiatric: Reports confusion Endocrine Endocrine: Reports system reviewed and no additional complaints, except as documented Hematologic/Lymphatic Hematologic/Lymphatic: Reports system reviewed and no additional complaints, except as documented Meds Home Medications and Allergies Home Medications Medication Instructions Recorded Confirmed Type amiodarone 200 mg tablet 200 mg PO DAILY Heart rhythm 02/08/23 04/15/23 History carvedilol 6.25 mg tablet 6.25 mg PO BID High blood pressure 02/08/23 04/15/23 History levothyroxine 150 mcg tablet 150 mcg PO AM Thyroid 02/08/23 04/15/23 History metformin 1,000 mg tablet 1,000 mg PO BID Diabetes 02/08/23 04/15/23 History docusate sodium 100 mg capsule 100 mg PO DAILY PRN Constipation 02/09/23 02/08/23 Rx #30 caps cefdinir 300 mg capsule 300 mg PO BID Infection 04/15/23 History furosemide 20 mg tablet (Lasix) 20 mg PO .QOD Heart Failure 04/15/23 04/15/23 History lisinopril 5 mg tablet 5 mg PO DAILY Hypertension
[2023-04-15 02:46] LABS: Microscopic, Urine URINE MICROSCOPIC (MICROSCOPIC)
[2023-04-15 03:15] LABS: Appearance,Urine TURBID (Clear); Bilirubin,Urine Negative (Negative); Blood, Urine 2+ (Negative); Color,Urine YELLOW (Yellow); Glucose,Urine (UA) Negative (Negative); Ketones,Urine TRACE (Negative); Leukocyte Esterase,Urine 2+ (Negative); Nitrate,Urine Negative (Negative); Protein,Urine 3+ (Negative); Urobilinogen,Urine 0.2 EU/dl (0.2)
[2023-04-15 03:35] LABS: Bacteria,Urine 4+ /lpf; WBC,Urine TNTC #/hpf (0-3)
[2023-04-15 03:35] LABS: Hemoglobin A1C 6.3 % (4.0-6.0)
[2023-04-15 03:41] LABS: Troponin I 0.02 ng/ml (0.00-0.034)
[2023-04-15 03:53] LABS: Magnesium 1.2 mg/dl (1.6-2.3)
[2023-04-15 04:15] LABS: Thyroid Stimulating Hormone 0.37 uIU/mL (0.465-4.68)
[2023-04-15 04:47] LABS: Reflex Lactic Add Lactic Reflex
[2023-04-15 07:08] LABS: Basophils % 0.2 % (0.1-2.0); Eosinophils # 0.2 K/mm3 (0.0-0.4); Eosinophils % 1.4 % (0.1-12.0); Hemoglobin 12.7 g/dL (12.2-16.2); Lymphocytes # 1.8 K/mm3 (0.7-4.5); Lymphocytes % 16.6 % (10-50); Mean Corpuscular HGB Conc 31.9 g/dL (31.8-35.4); Mean Corpuscular Hemoglobin 28.8 pg (27.0-31.2); Mean Corpuscular Volume 90.5 fl (81-99); Mean Platelet Volume 8.8 fl (7.4-10.4); Monocytes # 0.4 K/mm3 (0.1-1.0); Neutrophils # 8.2 K/mm3 (1.8-7.8); Neutrophils % 77.8 % (37.0-80.0); Platelet Count 165 K/mm3 (142-424); Red Blood Count 4.42 M/mm3 (4.20-5.40); Red Cell Distribution Width 16.1 % (11.5-17.5); White Blood Count 10.5 K/mm3 (4.8-10.8)
[2023-04-15 07:20] LABS: Lactic Acid Follow Up (RFLX 1) 4.5 mmol/L (0.7-2.1)
[2023-04-15 07:41] LABS: Anion Gap 22.7 mEq/L (5-15); Blood Urea Nitrogen 77 mg/dl (7-17); Chloride 110 mmol/L (98-107); Creatinine Clearance Estimated 21 mL/min (50-200); Estimated Glomerular Filt Rate 14 ml/min (>60); GFR (African American) 16 ML/MIN (>60); Glucose 112 mg/dl (74-100); Lipase 490 U/L (23-300); Potassium 3.7 mmoL/L (3.5-5.1); Sodium 139 mmol/L (136-145)
[2023-04-15 07:43] LABS: Carbon Dioxide 10 mmol/L (22.0-30.0)
[2023-04-15 07:55] LABS: Troponin I 0.02 ng/ml (0.00-0.034)
--- NOTE | 2023-04-15 08:27 | EXP.PHA.CONS ---
Pharmacy Consult Date: 04/15/23 Time: 08:27 Referring provider: DR. EDWARDS Reason for Consult:: VANCOMYCIN DOSING Allergies Allergy/AdvReac Type Severity Reaction Status Date / Time oxycodone [OXYCODONE] Allergy Severe MOUTH AND Verified 01/26/23 13:24 THROAT SWELL quetiapine [From SEROQUEL] Allergy Unknown Unknown Verified 01/26/23 13:24 allergy reaction Home Medications Medication Instructions Recorded Confirmed Type amiodarone 200 mg tablet 200 mg PO DAILY Heart rhythm 02/08/23 04/15/23 History carvedilol 6.25 mg tablet 6.25 mg PO BID High blood pressure 02/08/23 04/15/23 History levothyroxine 150 mcg tablet 150 mcg PO AM Thyroid 02/08/23 04/15/23 History metformin 1,000 mg tablet 1,000 mg PO BID Diabetes 02/08/23 04/15/23 History docusate sodium 100 mg capsule 100 mg PO DAILY PRN Constipation 02/09/23 02/08/23 Rx #30 caps cefdinir 300 mg capsule 300 mg PO BID Infection 04/15/23 History furosemide 20 mg tablet (Lasix) 20 mg PO .QOD Heart Failure 04/15/23 04/15/23 History lisinopril 5 mg tablet 5 mg PO DAILY Hypertension 04/15/23 History rivaroxaban 10 mg tablet (Xarelto) 20 mg PO QPMWITHMEAL Blood Thinner 04/15/23 04/15/23 History New Prescriptions to Start Prescriptions: Height: 1.68 cm Weight: 91.369 kg Laboratory Results:: Laboratory Results - last 24 hr 04/14/23 00:39: WBC Cancelled, Corrected WBC Cancelled, RBC Cancelled, Hgb Cancelled, Hct Cancelled, MCV Cancelled, MCH Cancelled, MCHC Cancelled, RDW Cancelled, Plt Count Cancelled, MPV Cancelled, Neut % (Auto) Cancelled, Lymph % (Auto) Cancelled, [place] % (Auto) Cancelled, Eos % (Auto) Cancelled, Baso % (Auto) Cancelled, Neut # (Auto) Cancelled, Lymph # (Auto) Cancelled, [place] # (Auto) Cancelled, Eos # (Auto) Cancelled, Baso # (Auto) Cancelled 04/14/23 01:23: Urine Color Yellow, Urine Appearance Turbid, Urine pH 7.0, Ur Specific [place] 1.015, Urine Protein 2+, Urine Glucose (UA) Negative, Urine Ketones Trace, Urine Blood 1+, Urine Nitrate Negative, Urine Bilirubin Negative, Urine Urobilinogen 0.2, Ur Leukocyte Esterase 3+ A, Urine RBC Occasional, Urine WBC 10-20, Ur Squamous Epith Cells 5-10, Urine Bacteria 4+ 04/15/23 00:39: WBC 10.2, RBC 4.78, Hgb 13.7, Hct 43.0, MCV 89.9, MCH 28.7, MCHC 32.0, RDW 16.1, Plt Count 232, MPV 8.9, Neut % (Auto) 74.0, Lymph % (Auto) 20.5, [place] % (Auto) 3.8, Eos % (Auto) 1.3, Baso % (Auto) 0.3, Neut # (Auto) 7.5, Lymph # (Auto) 2.1, [place] # (Auto) 0.4, Eos # (Auto) 0.1, Baso # (Auto) 0.0, Sodium 138, Potassium 3.7, Chloride 106, Carbon Dioxide 9 L*, Anion Gap 26.7 H, BUN 78 H, Creatinine 3.70 H, Estimated Creat Clear 19, Estimated GFR 12 L*, Est GFR ( Amer) 14 L*, Glucose 132 H, Hemoglobin A1c 6.3 H, Lactate 5.0 H, Calcium 8.7, Magnesium 1.2 L, Total Bilirubin 0.4, AST 26, ALT 28, Alkaline Phosphatase 69, Total Creatine Kinase < 20 L, Troponin I 0.02, NT-Pro-B Natriuret Pep 5500 H, Total Protein 7.4 D, Albumin 3.8, Globulin 3.6 H, Albumin/Globulin Ratio 1.1, Lipase 418 H, TSH 0.37 L 04/15/23 02:41: Urine Color Yellow, Urine Appearance Turbid, Urine pH 8.0, Ur Specific [place] 1.020, Urine Protein 3+, Urine Glucose (UA) Negative, Urine Ketones Trace, Urine Blood 2+, Urine Nitrate Negative, Urine Bilirubin Negative, Urine Urobilinogen 0.2, Ur Leukocyte Esterase 2+ A, Urine RBC 5-10, Urine WBC Tntc, Ur Squamous Epith Cells 10-20, Urine Bacteria 4+ 04/15/23 02:55: Troponin I 0.02 04/15/23 07:00: WBC 10.5, RBC 4.42, Hgb 12.7, Hct 40.0, MCV 90.5, MCH 28.8, MCHC 31.9, RDW 16.1, Plt Count 165 D, MPV 8.8, Neut % (Auto) 77.8, Lymph % (Auto) 16.6, [place] % (Auto) 4.0, Eos % (Auto) 1.4, Baso % (Auto) 0.2, Neut # (Auto) 8.2 H, Lymph # (Auto) 1.8, [place] # (Auto) 0.4, Eos # (Auto) 0.2, Baso # (Auto) 0.0, Sodium 139, Potassium 3.7, Chloride 110 H, Carbon Dioxide 10 L D, Anion Gap 22.7 H, BUN 77 H, Creatinine 3.30 H, Estimated Creat Clear 21, Estimated GFR 14 L*, Est GFR ( Amer) 16 L*, Glucose 112 H, Lactate 4.5 H, Calcium 8.0 L, Troponin I 0.0
[2023-04-15 09:03] LABS: Reflex Lactic (2 hrs) Add Lactic Reflex
[2023-04-15 09:20] LABS: ABG Base Excess -17.3 mmol/L (-2.4-2.3); ABG HCO3 9.9 mmhg (22.0-26.0); ABG Oxygen Saturation 96 % (90-100); ABG PCO2 22.8 mmhg (35.0-45.0); ABG PH 7.26 mmol/L (7.35-7.45); ABG PO2 93.5 mmhg (80-100); ABG TCO2 10.6 mmhg (23-27)
[2023-04-15 09:21] LABS: Allen's Test Acceptable; Oxygen RA %; Source Left Radial
[2023-04-15 09:48] LABS: Lactic Acid Follow up (RFLX 2) 3.7 mmol/L (0.7-2.1)
--- NOTE | 2023-04-15 11:58 | PC.NURSE ---
courtesy tech uriel: pt is lying in bed resting. no requests voiced at this time. call light is within reach
[2023-04-15 14:30] LABS: POC Glucose,Bedside 124 (70-110)
[2023-04-15 16:54] LABS: POC Glucose,Bedside 140 (70-110)
--- NOTE | 2023-04-15 17:06 | PC.WOUNDNOTE ---
Patient resting comfortably in bed throughout day. Patient has no complaints of discomfort. Patient oriented to self; bed alarms armed.
--- NOTE | 2023-04-15 18:17 | EXP.ACUTE.PN ---
Subjective *Date: 04/15/23 *Time: 18:17 Interval history: More awake But poor response to questions and not significantly following any commands Appears more comfortable Medical Exam Vital signs and Labs for Last 24 Hours: Vital Signs Temp Pulse Pulse Resp BP BP Pulse Ox 04/15/23 17:00 04/15/23 15:14 98.0 F 77 17 111/58 L 99 04/15/23 13:00 04/15/23 11:00 04/15/23 11:10 98.1 F 75 18 106/60 L 98 04/15/23 09:00 04/15/23 07:36 98.0 F 72 18 92/50 L 98 04/15/23 03:00 98.2 F 70 18 104/63 L 100 04/15/23 02:21 04/15/23 06:57 04/15/23 05:00 04/15/23 03:00 04/15/23 01:53 98.6 F 75 20 145/80 H 04/15/23 01:01 70 20 122/60 97 04/15/23 00:44 73 20 125/66 98 04/14/23 23:22 98.6 F 77 16 110/55 L 97 O2 Del Method 04/15/23 17:00 Room Air 04/15/23 15:14 Room Air 04/15/23 13:00 Room Air 04/15/23 11:00 Room Air 04/15/23 11:10 Room Air 04/15/23 09:00 Room Air 04/15/23 07:36 Room Air 04/15/23 03:00 Room Air 04/15/23 02:21 Room Air 04/15/23 06:57 Room Air 04/15/23 05:00 Room Air 04/15/23 03:00 Room Air 04/15/23 01:53 04/15/23 01:01 04/15/23 00:44 04/14/23 23:22 Intake and Output 04/15/23 04/15/23 04/15/23 07:59 15:59 23:59 Intake Total 0 / 240 0 / 240 240 / 240 Output Total 0 / 100 100 / 100 0 / 100 Balance 0 / 140 -100 / 140 240 / 140 Intake: Intake, Oral Amount 0 / 240 0 / 240 240 / 240 Output: Output, Urine Amount 0 / 100 100 / 100 0 / 100 Other: Number of Unmeasured Voids 0 0 0 Number of Bowel Movements 0 1 Weight 91.369 kg 91.369 kg Patient Weight 04/15/23 23:59 Weight 91.369 kg Laboratory Results - last 24 hr 04/14/23 00:39: WBC Cancelled, Corrected WBC Cancelled, RBC Cancelled, Hgb Cancelled, Hct Cancelled, MCV Cancelled, MCH Cancelled, MCHC Cancelled, RDW Cancelled, Plt Count Cancelled, MPV Cancelled, Neut % (Auto) Cancelled, Lymph % (Auto) Cancelled, [place] % (Auto) Cancelled, Eos % (Auto) Cancelled, Baso % (Auto) Cancelled, Neut # (Auto) Cancelled, Lymph # (Auto) Cancelled, [place] # (Auto) Cancelled, Eos # (Auto) Cancelled, Baso # (Auto) Cancelled 04/14/23 01:23: Urine Color Yellow, Urine Appearance Turbid, Urine pH 7.0, Ur Specific [place] 1.015, Urine Protein 2+, Urine Glucose (UA) Negative, Urine Ketones Trace, Urine Blood 1+, Urine Nitrate Negative, Urine Bilirubin Negative, Urine Urobilinogen 0.2, Ur Leukocyte Esterase 3+ A, Urine RBC Occasional, Urine WBC 10-20, Ur Squamous Epith Cells 5-10, Urine Bacteria 4+ 04/15/23 00:39: WBC 10.2, RBC 4.78, Hgb 13.7, Hct 43.0, MCV 89.9, MCH 28.7, MCHC 32.0, RDW 16.1, Plt Count 232, MPV 8.9, Neut % (Auto) 74.0, Lymph % (Auto) 20.5, [place] % (Auto) 3.8, Eos % (Auto) 1.3, Baso % (Auto) 0.3, Neut # (Auto) 7.5, Lymph # (Auto) 2.1, [place] # (Auto) 0.4, Eos # (Auto) 0.1, Baso # (Auto) 0.0, Sodium 138, Potassium 3.7, Chloride 106, Carbon Dioxide 9 L*, Anion Gap 26.7 H, BUN 78 H, Creatinine 3.70 H, Estimated Creat Clear 19, Estimated GFR 12 L*, Est GFR ( Amer) 14 L*, Glucose 132 H, Hemoglobin A1c 6.3 H, Lactate 5.0 H, Calcium 8.7, Magnesium 1.2 L, Total Bilirubin 0.4, AST 26, ALT 28, Alkaline Phosphatase 69, Total Creatine Kinase < 20 L, Troponin I 0.02, NT-Pro-B Natriuret Pep 5500 H, Total Protein 7.4 D, Albumin 3.8, Globulin 3.6 H, Albumin/Globulin Ratio 1.1, Lipase 418 H, TSH 0.37 L 04/15/23 02:41: Urine Color Yellow, Urine Appearance Turbid, Urine pH 8.0, Ur Specific [place] 1.020, Urine Protein 3+, Urine Glucose (UA) Negative, Urine Ketones Trace, Urine Blood 2+, Urine Nitrate Negative, Urine Bilirubin Negative, Urine Urobilinogen 0.2, Ur Leukocyte Esterase 2+ A, Urine RBC 5-10, Urine WBC Tntc, Ur Squamous Epith Cells 10-20, Urine Bacteria 4+ 04/15/23 02:55: Troponin I 0.02 04/15/23 07:00: WBC 10.5, RBC 4.42, Hgb 12.7, Hct 40.0, MCV 90.5, MCH 28.8, MCHC 31.9, RDW 16.1, Plt Count 165 D, MPV 8.8, Neut % (Auto) 77.8, Lymph % (Auto)
[2023-04-15 20:42] LABS: POC Glucose,Bedside 122 (70-110)
--- NOTE | 2023-04-16 | CA_ITS ---
FINAL REPORT TECHNIQUE: Compression bhardwaj scale and Doppler evaluation CLINICAL HISTORY: RLE edema. Patient is uncooperative and AMS. Limited scan due to poor positioning and cooperation. COMPARISON: None FINDINGS: The exam is overall somewhat limited secondary to patient altered mental status. The portions of the femoral and popliteal veins visualized show normal compressibility and flow. Visualized portion of the calf veins are patent by Doppler exam. IMPRESSION: Exam somewhat limited secondary to patient altered mental status. No convincing evidence of right lower extremity deep venous thrombosis. Should symptoms persist would consider repeat study. Reviewed, Interpreted and Dictated by Lata Gordillo MD Transcribed by Ning [employer] Authenticated and [facility]
[2023-04-16 04:00] VITALS: BP 115/42; PULSE 71; RESP 18; TEMP 36.6; O2SAT 99; BMI 30.9
[2023-04-16 06:12] LABS: POC Glucose,Bedside 133 (70-110)
[2023-04-16 07:02] LABS: Basophils % 0.4 % (0.1-2.0); Eosinophils # 0.2 K/mm3 (0.0-0.4); Eosinophils % 2.2 % (0.1-12.0); Hematocrit 33.6 % (37.0-47.0); Lymphocytes # 1.7 K/mm3 (0.7-4.5); Lymphocytes % 22.7 % (10-50); Mean Corpuscular HGB Conc 32.9 g/dL (31.8-35.4); Mean Corpuscular Hemoglobin 28.5 pg (27.0-31.2); Mean Corpuscular Volume 86.7 fl (81-99); Mean Platelet Volume 8.5 fl (7.4-10.4); Monocytes # 0.4 K/mm3 (0.1-1.0); Neutrophils # 5.2 K/mm3 (1.8-7.8); Neutrophils % 69.8 % (37.0-80.0); Platelet Count 176 K/mm3 (142-424); Red Blood Count 3.88 M/mm3 (4.20-5.40); Red Cell Distribution Width 16.3 % (11.5-17.5); White Blood Count 7.4 K/mm3 (4.8-10.8)
[2023-04-16 07:10] LABS: Lactic Acid 1.1 mmol/L (0.7-2.1)
[2023-04-16 07:12] LABS: Alanine Aminotransferase 22 U/L (12-78); Albumin Level 2.6 g/dl (3.5-5.0); Albumin/Globulin Ratio 0.9 (1.1-1.8); Alkaline Phosphatase 47 U/L (38-126); Anion Gap 13.7 mEq/L (5-15); Aspartate Amino Transferase 29 U/L (14-36); Bilirubin,Total 0.3 mg/dl (0.2-1.3); Blood Urea Nitrogen 69 mg/dl (7-17); Calcium 7.2 mg/dl (8.4-10.2); Carbon Dioxide 18 mmol/L (22.0-30.0); Chloride 108 mmol/L (98-107); Creatinine Clearance Estimated 27 mL/min (50-200); Estimated Glomerular Filt Rate 19 ml/min (>60); GFR (African American) 23 ML/MIN (>60); Globulin 2.8 g/dL (1.3-3.2); Glucose 136 mg/dl (74-100); Sodium 137 mmol/L (136-145); Total Protein,Serum 5.4 g/dl (6.3-8.2)
[2023-04-16 07:16] LABS: Lipase 967 U/L (23-300); Potassium 2.7 mmoL/L (3.5-5.1)
[2023-04-16 07:26] VITALS: BP 112/57; PULSE 73; RESP 17; TEMP 36.7; O2SAT 98
--- NOTE | 2023-04-16 07:26 | HMH.ITSTN ---
I called nurse and advised pt had an abd/pelvis scan overnight without contrast- pt has a GFR of 19 and unable to have a contrast scan due to low GFR and scan without done at 12 midnight 04/15/23
--- NOTE | 2023-04-16 07:39 | US_ITS ---
PROCEDURE INFORMATION: Exam: US Abdomen Complete Exam date and time: 04/16/2023 8:40 AM Age: 73 years old Clinical indication: Abdominal pain; Prior surgery; Surgery date: 6+ months; Surgery type: Gallbladder removed; Additional info: Suspect pancreatitis TECHNIQUE: Imaging protocol: Real-time ultrasound of the abdomen with image documentation. Complete exam. COMPARISON: CT ABDOMEN PELVIS WO CON 04/15/2023 12:26 AM FINDINGS: Liver: Suboptimal evaluation of the liver. Gallbladder: Previous cholecystectomy. Biliary ducts: Not visualized. Pancreas: Pancreas obscured. Right kidney: Right kidney measures 9.8 x 5.1 x 6.3 cm. No hydronephrosis Left kidney: Left kidney measures 8.3 x 4.4 x 4.9 cm. No hydronephrosis Spleen: Spleen obscured. Aorta: Obscured. Inferior vena cava: Suboptimally visualized.. Other findings: Limited due to patient body habitus and motion. IMPRESSION: Severely limited examination. No acute findings.
--- NOTE | 2023-04-16 09:51 | EXP.SURG.CON ---
History of Present Illness *Admission Date: 04/15/23 *Reason for visit:: Pancreatitis *History of present illness: This is a 73-year-old female seen in consultation from the primary service for evaluation regarding pancreatitis. Please see HPI forwarded from admission H&P below. Lipase today 967 (490 yesterday) Bilirubin and transaminases normal CT scan without IV contrast obtained on April 14 revealed diffuse pancreatic atrophy with no acute or focal findings. Ultrasound obtained today very limited with pancreas obscured. The patient has a history of cholecystectomy. 73 year old female presents to the ED from [facility] for abnormal labs. Upon pt's arrival she only c/o intermittent vomiting. PMHX of CAD, DM, Atrial Fib, Obesity, and edema. In the ED the patient's lab work revealed a metabolic acidosis with CO2 of 9. AKILA w/ creatinine of 3.7, Lactate 5.0, BNP 5500, Lipase of 418, urine positive for leukocyte esterase, and anion gap of 26.7. The patient's abdominal CT was unremarkable. The pt has a hx of E coli in her urine cultures. Due to the risk of decompensation, the ED physician spoke with the hospitalist team for admission. The patient will be admitted to the medical floor for further treatment of her UTI and AKILA. She was started on cefepime and vancomycin. Upon my assessment the patient remains hemodynamically stable, afebrile, and is confused. She is unable to tell me what year or provide a medical history. [facility] Disclaimer: The information contained in this section may have been updated after the patient was seen, as this information can be updated by other users. Medical History CAD (coronary artery disease) Chronic renal insufficiency DJD (degenerative joint disease), cervical DJD (degenerative joint disease), lumbar Dyspnea Parkinson disease Family History Other Cancer Coronary artery disease Social History (Updated 02/08/23 @ 23:03 by Rocio Hannah RN) Smoking Status: Unknown if ever smoked alcohol intake: never substance use type: denies use current occupational status: disabled Travel in the last 8 weeks: None caregiver/support person: Yes household members: other housing: care home current occupational exposures/hazards: No caffeine: Yes Review of Systems *Neurologic Neurologic: Reports as per HPI and Reports confusion Psychiatric Psychiatric: Reports confusion Meds Home Medications and Allergies Home Medications Medication Instructions Recorded Confirmed Type amiodarone 200 mg tablet 200 mg PO DAILY Heart rhythm 02/08/23 04/15/23 History carvedilol 6.25 mg tablet 6.25 mg PO BID High blood pressure 02/08/23 04/15/23 History levothyroxine 150 mcg tablet 150 mcg PO AM Thyroid 02/08/23 04/15/23 History metformin 1,000 mg tablet 1,000 mg PO BID Diabetes 02/08/23 04/15/23 History acetaminophen 500 mg tablet 500 mg PO Q4HP PRN PAIN/FEVER 04/15/23 04/15/23 History furosemide 20 mg tablet (Lasix) 20 mg PO Q48H Heart Failure 04/15/23 04/15/23 History lactulose 10 gram/15 mL oral 30 ml PO DAILY BOWEL CARE 04/15/23 04/15/23 History solution nystatin 100,000 unit/gram topical 1 applic topical DAILYP PRN REDNESS 04/15/23 04/15/23 History powder ondansetron HCl 4 mg tablet 4 mg PO Q6HP PRN NAUSEA/VOMITING 04/15/23 04/15/23 History rivaroxaban 10 mg tablet (Xarelto) 20 mg PO QPMWITHMEAL Blood Thinner 04/15/23 04/15/23 History New Prescriptions to Start Prescriptions: Allergies Allergy/AdvReac Type Severity Reaction Status Date / Time oxycodone [OXYCODONE] Allergy Severe MOUTH AND Verified 01/26/23 13:24 THROAT SWELL quetiapine [From SEROQUEL] Allergy Unknown Unknown Verified 01/26/23 13:24 allergy reaction Exam (Inpt) Vital signs and Labs for Last 24 Hours: Temp Pulse Resp BP Pulse Ox O2 Del Method 98.1 F
[2023-04-16 11:09] VITALS: BP 115/60; PULSE 75; RESP 18; TEMP 36.6; O2SAT 95
[2023-04-16 11:57] LABS: POC Glucose,Bedside 173 (70-110)
--- NOTE | 2023-04-16 14:12 | EXP.ACUTE.PN ---
Subjective *Date: 04/16/23 *Time: 14:12 Interval history: More awake and alert. Not answering many questions except her name When asked about abdominal pain she does not answer me Appears uncomfortable Medical Exam Vital signs and Labs for Last 24 Hours: Vital Signs Temp Pulse Resp BP Pulse Ox O2 Del Method 04/16/23 13:00 Room Air 04/16/23 11:00 Room Air 04/16/23 11:09 97.9 F 75 18 115/60 95 Room Air 04/16/23 09:00 Room Air 04/16/23 07:26 98.1 F 73 17 112/57 L 98 Room Air 04/16/23 06:04 Room Air 04/16/23 05:00 Room Air 04/16/23 04:00 97.8 F 71 18 115/42 L 99 Room Air 04/16/23 03:00 Room Air 04/16/23 00:41 Room Air 04/15/23 22:48 Room Air 04/15/23 20:00 Room Air 04/15/23 20:53 Room Air 04/15/23 20:00 97.6 F 71 16 141/58 H 100 Room Air 04/15/23 18:20 Room Air 04/15/23 17:00 Room Air 04/15/23 15:14 98.0 F 77 17 111/58 L 99 Room Air Intake and Output 04/15/23 04/16/23 04/16/23 23:59 07:59 15:59 Intake Total 240 / 240 834 / 834 0 / 834 Output Total 200 / 300 900 / 900 0 / 900 Balance 40 / -60 -66 / -66 0 / -66 Intake: Intake, Oral Amount 240 / 240 0 / 0 0 / 0 Intake, Total IV Amount 834 / 834 Cefepime HCl 1 gm In 0.9 % 50 / 50 Sodium Chloride 50 ml @ 100 mls /hr IV Q12H [facility] Rx#:[id number] Sodium Bicarbonate 150 meq In 784 / 784 Dextrose 5 % in Water 1,000 ml @ 50 mls/hr IV .Q23H [facility] Rx#: [id number] Output: Output, Urine Amount 200 / 300 900 / 900 0 / 900 Other: Number of Unmeasured Voids 0 0 0 Number of Bowel Movements 1 1 Weight 87.453 kg Patient Weight 04/16/23 23:59 Weight 87.453 kg Laboratory Results - last 24 hr 04/15/23 11:36: POC Glucose 124 H 04/15/23 16:36: POC Glucose 140 H 04/15/23 20:30: POC Glucose 122 H 04/16/23 06:02: POC Glucose 133 H 04/16/23 06:54: WBC 7.4 D, RBC 3.88 L, Hgb 11.0 L D, Hct 33.6 L, MCV 86.7, MCH 28.5, MCHC 32.9, RDW 16.3, Plt Count 176, MPV 8.5, Neut % (Auto) 69.8, Lymph % (Auto) 22.7, Cowley % (Auto) 5.0, Eos % (Auto) 2.2, Baso % (Auto) 0.4, Neut # (Auto) 5.2, Lymph # (Auto) 1.7, Cowley # (Auto) 0.4, Eos # (Auto) 0.2, Baso # (Auto) 0.0, Sodium 137, Potassium 2.7 L* D, Chloride 108 H, Carbon Dioxide 18 L, Anion Gap 13.7, BUN 69 H, Creatinine 2.50 H D, Estimated Creat Clear 27, Estimated GFR 19 L*, Est GFR ( Amer) 23 L D, Glucose 136 H D, Lactate 1.1, Calcium 7.2 L, Total Bilirubin 0.3, AST 29, ALT 22, Alkaline Phosphatase 47, Total Protein 5.4 L D, Albumin 2.6 L D, Globulin 2.8, Albumin/Globulin Ratio 0.9 L, Lipase 967 H 04/16/23 11:40: POC Glucose 173 H I & O for Labs for Last 24 Hours: Intake & Output 04/13/23 04/14/23 04/15/23 04/16/23 23:59 23:59 23:59 23:59 Intake Total 240 / 240 834 / 834 Output Total 300 / 300 900 / 900 Balance -60 / -60 -66 / -66 Weight 91.626 kg 91.369 kg 87.453 kg Microbiology Reports for the Last 24 Hours: Microbiology 04/15/23 01:23 Urine,Catheterized Urine Culture - Preliminary Additional Findings:: General: Elderly female, appears in some pain, awake alert does not seem to be oriented to place or time. Able to tell me her name Oral cavity: Dry Chest: Diminished breath sounds at bases no signs of any respiratory distress CVS: Not tachycardic. S1-S2 + Abdomen: Diffuse tenderness nonfocal. Some guarding noted. Bowel sounds present Extremities: Atrophy and deformity of the right upper extremity. Edema of the bilateral lower extremities. Able to move all of the 3 extremities other than right upper Neuro: Awake alert not oriented to place or time. Able to move all 4 extremities but limited movement of the right upper. Assessment and Plan *Assessment and plan (1) Sepsis secondary to UTI: Status: Acute Category: Medical Code(s): A41.9 - Sepsis, unspecified organism; N39.0 - Urinary tract infection, site not specified (2) Pancreatit
[2023-04-16 15:06] VITALS: BP 106/51; PULSE 71; RESP 17; TEMP 36.6; O2SAT 99
[2023-04-16 15:12] LABS: Chloride 109 mmol/L (98-107); Sodium 138 mmol/L (136-145)
[2023-04-16 15:14] LABS: Blood Urea Nitrogen 72 mg/dl (7-17); Creatinine Clearance Estimated 32 mL/min (50-200); Estimated Glomerular Filt Rate 23 ml/min (>60); GFR (African American) 28 ML/MIN (>60)
[2023-04-16 15:15] LABS: Alanine Aminotransferase 28 U/L (12-78); Albumin Level 2.7 g/dl (3.5-5.0); Albumin/Globulin Ratio 0.9 (1.1-1.8); Aspartate Amino Transferase 40 U/L (14-36); Bilirubin,Total 0.7 mg/dl (0.2-1.3); Calcium 7.5 mg/dl (8.4-10.2); Carbon Dioxide 14 mmol/L (22.0-30.0); Globulin 2.9 g/dL (1.3-3.2); Glucose 169 mg/dl (74-100); Total Protein,Serum 5.6 g/dl (6.3-8.2)
[2023-04-16 15:19] LABS: Alkaline Phosphatase < 20 U/L (38-126)
[2023-04-16 16:21] LABS: POC Glucose,Bedside 185 (70-110)
--- NOTE | 2023-04-16 17:31 | PC.NURSE ---
PT IS RESTING IN BED. ALERT TO SELF ONLY. PT IS FOLLOWING COMMANDS. PT HAS A TREMOR NOTED TO THE RIGHT ARM. PT STATES SHE IS UNABLE TO MOVE HER RLE. HAS TAKEN ALL HER PO MEDS THIS SHIFT WITH SIPS OF WATER. LUNG SOUNDS DIMINISHED. ABDOMEN SOFT WITH ALL OVER TENDERNESS WITH PALPATIONS. PT ALSO COMPLAINS OF TENDERNESS IN HER BUE. WILL CONTINUE TO MONITOR.
[2023-04-16 20:00] VITALS: BP 136/59; PULSE 71; RESP 16; TEMP 36.4; O2SAT 99
[2023-04-16 21:00] LABS: POC Glucose,Bedside 164 (70-110)
[2023-04-17 04:00] VITALS: BP 127/61; PULSE 70; RESP 16; TEMP 36.7; O2SAT 98; BMI 31.5
[2023-04-17 06:08] LABS: POC Glucose,Bedside 165 (70-110)
[2023-04-17 06:18] LABS: Basophils % 0.5 % (0.1-2.0); Eosinophils # 0.1 K/mm3 (0.0-0.4); Eosinophils % 1.9 % (0.1-12.0); Hematocrit 34.8 % (37.0-47.0); Hemoglobin 11.1 g/dL (12.2-16.2); Lymphocytes # 1.5 K/mm3 (0.7-4.5); Lymphocytes % 24.4 % (10-50); Mean Corpuscular HGB Conc 31.9 g/dL (31.8-35.4); Mean Corpuscular Hemoglobin 28.7 pg (27.0-31.2); Mean Corpuscular Volume 89.8 fl (81-99); Mean Platelet Volume 9.2 fl (7.4-10.4); Monocytes # 0.5 K/mm3 (0.1-1.0); Monocytes % 7.1 % (1.7-9.3); Neutrophils # 4.2 K/mm3 (1.8-7.8); Platelet Count 152 K/mm3 (142-424); Red Blood Count 3.88 M/mm3 (4.20-5.40); Red Cell Distribution Width 16.3 % (11.5-17.5); White Blood Count 6.3 K/mm3 (4.8-10.8)
[2023-04-17 06:30] LABS: Anion Gap 9.5 mEq/L (5-15); Blood Urea Nitrogen 58 mg/dl (7-17); Calcium 6.8 mg/dl (8.4-10.2); Carbon Dioxide 21 mmol/L (22.0-30.0); Chloride 111 mmol/L (98-107); Creatinine Clearance Estimated 38 mL/min (50-200); Estimated Glomerular Filt Rate 27 ml/min (>60); GFR (African American) 33 ML/MIN (>60); Glucose 165 mg/dl (74-100); Lipase 333 U/L (23-300); Potassium 3.5 mmoL/L (3.5-5.1); Sodium 138 mmol/L (136-145)
[2023-04-17 08:00] VITALS: BP 111/64; PULSE 75; RESP 22; TEMP 36.7; O2SAT 98
--- NOTE | 2023-04-17 08:34 | SW/DCPLANNER ---
Addendum entered by Sarah Diaz 04/19/23 08:22: I have updated Karena w/ [facility] that patient will return today. Original Note: This patient currently resides at [facility] level of care. I will continue to follow up w/ Karena at [facility] until patient is medically stable for discharge. Discharge date is unknown at this time.
--- NOTE | 2023-04-17 09:33 | PC.NURSE ---
Courtesy Tech Note: Rounded on pt. pt laying in bed didn't need any assistance at this time.
[2023-04-17 11:51] VITALS: BP 126/60; PULSE 71; RESP 20; TEMP 36.7; O2SAT 94
--- NOTE | 2023-04-17 11:53 | DIET.NUTRFU ---
Reviewed [place] information, Patient was on MSOFT CCHO with thin liquids. She was also on house supplement BID. Currently on full liquids, reviewed with nursing when medically feasible advance to MSOFT her baseline. RD will add supplements as diet advances.
[2023-04-17 16:00] VITALS: BP 95/66; PULSE 75; RESP 20; TEMP 36.8; O2SAT 98
--- NOTE | 2023-04-17 17:22 | EXP.ACUTE.PN ---
Subjective *Date: 04/17/23 *Time: 17:22 Interval history: Patient feeling better today. Remains hemodynamically stable. Tolerating full liquids this morning. Discussed case with surgery. No plan for interventions at this time. Urine culture showing 2 strains of gram-negative rods. Labs showing improvement. Lipase drastically improved today. Review of imaging shows previous findings of pancreatic atrophy. Medical Exam Vital signs and Labs for Last 24 Hours: Vital Signs Temp Pulse Resp BP Pulse Ox O2 Del Method 04/17/23 16:00 98.2 F 75 20 95/66 L 98 Room Air 04/17/23 13:00 Room Air 04/17/23 11:00 Room Air 04/17/23 11:51 98.0 F 71 20 126/60 94 L Room Air 04/17/23 09:00 Room Air 04/17/23 08:00 98.0 F 75 22 111/64 98 Room Air 04/17/23 06:29 Room Air 04/17/23 05:00 Room Air 04/17/23 04:00 98.1 F 70 16 127/61 98 04/17/23 03:00 Room Air 04/17/23 01:00 Room Air 04/16/23 23:00 Room Air 04/16/23 20:00 Room Air 04/16/23 20:00 97.5 F L 71 16 136/59 L 99 Room Air 04/16/23 20:44 Room Air 04/16/23 19:00 Room Air Intake and Output 04/17/23 04/17/23 04/17/23 07:59 15:59 23:59 Intake Total 893 / 1356 463 / 1356 Output Total 550 / 551 Balance 892 / 805 -87 / 805 Intake: Intake, Oral Amount 240 / 240 Intake, Other Amount 223 / 223 Intake, Total IV Amount 893 / 893 Cefepime HCl 1 gm In 0.9 % 50 / 50 Sodium Chloride 50 ml @ 100 mls /hr IV Q12H [facility] Rx#:[id number] D5W/0.45% NaCl w/40mEq KCl 1, 843 / 843 000 ml @ 125 mls/hr IV .Q8H [facility] Rx#:[id number] Output: Output, Urine Amount 1 550 / 551 Other: Number of Unmeasured Voids 700 1 Number of Bowel Movements 1 Weight 88.995 kg Patient Weight 04/17/23 23:59 Weight 88.995 kg Laboratory Results - last 24 hr 04/16/23 20:23: POC Glucose 164 H 04/17/23 05:23: WBC 6.3, RBC 3.88 L, Hgb 11.1 L, Hct 34.8 L, MCV 89.8, MCH 28.7, MCHC 31.9, RDW 16.3, Plt Count 152, MPV 9.2, Neut % (Auto) 66.0, Lymph % (Auto) 24.4, Mower % (Auto) 7.1, Eos % (Auto) 1.9, Baso % (Auto) 0.5, Neut # (Auto) 4.2, Lymph # (Auto) 1.5, Mower # (Auto) 0.5, Eos # (Auto) 0.1, Baso # (Auto) 0.0, Sodium 138, Potassium 3.5, Chloride 111 H, Carbon Dioxide 21 L, Anion Gap 9.5, BUN 58 H, Creatinine 1.80 H, Estimated Creat Clear 38, Estimated GFR 27 L, Est GFR ( Amer) 33 L, Glucose 165 H, Calcium 6.8 L, Lipase 333 H 04/17/23 06:00: POC Glucose 165 H I & O for Labs for Last 24 Hours: Intake & Output 04/14/23 04/15/23 04/16/23 04/17/23 23:59 23:59 23:59 23:59 Intake Total 240 / 240 2208 / 2208 1356 / 1356 Output Total 300 / 300 1300 / 1300 551 / 551 Balance -60 / -60 908 / 908 805 / 805 Weight 91.626 kg 91.369 kg 87.453 kg 88.995 kg Microbiology Reports for the Last 24 Hours: Microbiology 04/15/23 01:23 Urine,Catheterized Urine Culture - Preliminary Gram Negative Rods Gram Negative Rods#2 04/15/23 16:40 Anus CRE Surveillance Culture - Final Negative 04/15/23 00:39 Blood Blood Culture - Preliminary NO GROWTH AFTER 48 HOURS 04/15/23 00:39 Blood Blood Culture - Preliminary NO GROWTH AFTER 48 HOURS Additional Findings:: General: Elderly female, stable on room air. awake alert does not seem to be oriented to place or time. Able to tell me her name Oral cavity: MMM Chest: Diminished breath sounds at bases no signs of any respiratory distress CVS: Not tachycardic. S1-S2 + Abdomen: Diffuse tenderness nonfocal. Bowel sounds present Extremities: Atrophy and deformity of the right upper extremity. 1+ edema of the bilateral lower extremities. Able to move all of the 3 extremities other than right upper Neuro: Awake alert not oriented to place or time. Able to move all 4 extremities
[2023-04-17 17:45] LABS: POC Glucose,Bedside 142 (70-110)
[2023-04-17 20:00] VITALS: BP 136/57; PULSE 74; RESP 20; TEMP 36.6; O2SAT 95
[2023-04-17 20:32] LABS: POC Glucose,Bedside 167 (70-110)
[2023-04-18 04:00] VITALS: BP 142/71; PULSE 72; RESP 20; TEMP 36.8; O2SAT 99; BMI 31.1
[2023-04-18 05:58] LABS: POC Glucose,Bedside 111 (70-110)
[2023-04-18 06:30] LABS: Basophils % 0.5 % (0.1-2.0); Eosinophils # 0.2 K/mm3 (0.0-0.4); Eosinophils % 2.2 % (0.1-12.0); Hematocrit 34.6 % (37.0-47.0); Hemoglobin 11.3 g/dL (12.2-16.2); Lymphocytes # 1.8 K/mm3 (0.7-4.5); Lymphocytes % 24.5 % (10-50); Mean Corpuscular HGB Conc 32.8 g/dL (31.8-35.4); Mean Corpuscular Hemoglobin 29.3 pg (27.0-31.2); Mean Corpuscular Volume 89.3 fl (81-99); Mean Platelet Volume 8.8 fl (7.4-10.4); Monocytes # 0.4 K/mm3 (0.1-1.0); Monocytes % 5.8 % (1.7-9.3); Neutrophils % 67.1 % (37.0-80.0); Platelet Count 151 K/mm3 (142-424); Red Blood Count 3.87 M/mm3 (4.20-5.40); Red Cell Distribution Width 16.3 % (11.5-17.5); White Blood Count 7.4 K/mm3 (4.8-10.8)
[2023-04-18 06:41] LABS: Alanine Aminotransferase 28 U/L (12-78); Albumin Level 2.7 g/dl (3.5-5.0); Albumin/Globulin Ratio 0.9 (1.1-1.8); Alkaline Phosphatase 58 U/L (38-126); Anion Gap 10.6 mEq/L (5-15); Aspartate Amino Transferase 28 U/L (14-36); Bilirubin,Total 0.4 mg/dl (0.2-1.3); Blood Urea Nitrogen 45 mg/dl (7-17); Calcium 7.3 mg/dl (8.4-10.2); Carbon Dioxide 19 mmol/L (22.0-30.0); Chloride 112 mmol/L (98-107); Creatinine Clearance Estimated 45 mL/min (50-200); Estimated Glomerular Filt Rate 34 ml/min (>60); GFR (African American) 41 ML/MIN (>60); Glucose 119 mg/dl (74-100); Potassium 3.6 mmoL/L (3.5-5.1); Sodium 138 mmol/L (136-145); Total Protein,Serum 5.7 g/dl (6.3-8.2)
[2023-04-18 06:44] LABS: Magnesium 0.7 mg/dl (1.6-2.3)
--- NOTE | 2023-04-18 06:55 | PC.NURSE ---
Critical magnesium result 0.7 called to hTanh Murray APRN; provider to enter new order.
[2023-04-18 07:50] VITALS: BP 119/56; PULSE 70; RESP 18; TEMP 36.7; O2SAT 97
--- NOTE | 2023-04-18 08:34 | EXP.PHA.PN ---
Subjective *Date: 04/18/23 *Time: 08:34 Medical Exam Vital signs and Labs for Last 24 Hours: Vital Signs Temp Pulse Resp BP Pulse Ox O2 Del Method 04/18/23 07:50 98.0 F 70 18 119/56 L 97 Room Air 04/18/23 07:37 Room Air 04/18/23 06:20 Room Air 04/18/23 04:50 Room Air 04/18/23 04:00 98.3 F 72 20 142/71 H 99 Room Air 04/18/23 03:00 Room Air 04/18/23 01:00 Room Air 04/18/23 00:00 98.4 F 62 18 132/69 94 L Room Air 04/17/23 23:00 Room Air 04/17/23 20:00 Room Air 04/17/23 20:21 Room Air 04/17/23 20:00 97.8 F 74 20 136/57 L 95 Room Air 04/17/23 18:47 Room Air 04/17/23 17:00 Room Air 04/17/23 15:00 Room Air 04/17/23 16:00 98.2 F 75 20 95/66 L 98 Room Air 04/17/23 13:00 Room Air 04/17/23 11:00 Room Air 04/17/23 11:51 98.0 F 71 20 126/60 94 L Room Air 04/17/23 09:00 Room Air Intake and Output 04/17/23 04/18/23 04/18/23 23:59 07:59 15:59 Intake Total 410 / 1766 110 / 110 Output Total 0 / 551 0 / 0 Balance 410 / 1215 110 / 110 Intake: Intake, Oral Amount 360 / 600 60 / 60 Intake, Other Amount 50 / 273 Intake, Total IV Amount 50 / 50 Cefepime HCl 1 gm In 0.9 % 50 / 50 Sodium Chloride 50 ml @ 100 mls /hr IV Q12H [facility] Rx#:[id number] Output: Output, Urine Amount 0 / 551 0 / 0 Other: Number of Unmeasured Voids 1 1 Number of Bowel Movements 1 1 Weight 87.997 kg Patient Weight 04/18/23 23:59 Weight 87.997 kg Laboratory Results - last 24 hr 04/17/23 17:37: POC Glucose 142 H 04/17/23 20:05: POC Glucose 167 H 04/18/23 05:50: POC Glucose 111 H 04/18/23 06:20: WBC 7.4, RBC 3.87 L, Hgb 11.3 L, Hct 34.6 L, MCV 89.3, MCH 29.3, MCHC 32.8, RDW 16.3, Plt Count 151, MPV 8.8, Neut % (Auto) 67.1, Lymph % (Auto) 24.5, Edmunds % (Auto) 5.8, Eos % (Auto) 2.2, Baso % (Auto) 0.5, Neut # (Auto) 5.0, Lymph # (Auto) 1.8, Edmunds # (Auto) 0.4, Eos # (Auto) 0.2, Baso # (Auto) 0.0, Sodium 138, Potassium 3.6, Chloride 112 H, Carbon Dioxide 19 L, Anion Gap 10.6, BUN 45 H, Creatinine 1.50 H, Estimated Creat Clear 45, Estimated GFR 34 L, Est GFR ( Amer) 41 L D, Glucose 119 H, Calcium 7.3 L, Magnesium 0.7 L, Total Bilirubin 0.4, AST 28 D, ALT 28, Alkaline Phosphatase 58, Total Protein 5.7 L, Albumin 2.7 L, Globulin 3.0, Albumin/Globulin Ratio 0.9 L I & O for Labs for Last 24 Hours: Intake & Output 04/15/23 04/16/23 04/17/23 04/18/23 23:59 23:59 23:59 23:59 Intake Total 240 / 240 2208 / 2208 1766 / 1766 110 / 110 Output Total 300 / 300 1300 / 1300 551 / 551 0 / 0 Balance -60 / -60 908 / 908 1215 / 1215 110 / 110 Weight 91.369 kg 87.453 kg 88.995 kg 87.997 kg Microbiology Reports for the Last 24 Hours: Microbiology 04/15/23 01:23 Urine,Catheterized Urine Culture - Final Escherichia coli Providencia rettgeri 04/15/23 16:40 Anus CRE Surveillance Culture - Final Negative The patient's infection will respond to the chosen ABx?: Yes (URINE CX = P. RETTGERI AND E.COLI) Is the patient receiving the right drug, dose, and route?: Yes Could a more targeted ABx be ordered?: No
[2023-04-18 13:37] LABS: Magnesium 1.3 mg/dl (1.6-2.3)
--- NOTE | 2023-04-18 13:49 | EXP.ACUTE.PN ---
Subjective *Date: 04/18/23 *Time: 13:54 Interval history: Patient is afebrile hemodynamically stable. Had a bowel movement today. Did not eat breakfast because she was not interested in it. Had dry heaving at lunch after taking p.o. medication. Magnesium severely depleted. Medical Exam Vital signs and Labs for Last 24 Hours: Vital Signs Temp Pulse Resp BP Pulse Ox O2 Del Method 04/18/23 11:00 Room Air 04/18/23 08:44 Room Air 04/18/23 07:50 98.0 F 70 18 119/56 L 97 Room Air 04/18/23 07:37 Room Air 04/18/23 06:20 Room Air 04/18/23 04:50 Room Air 04/18/23 04:00 98.3 F 72 20 142/71 H 99 Room Air 04/18/23 03:00 Room Air 04/18/23 01:00 Room Air 04/18/23 00:00 98.4 F 62 18 132/69 94 L Room Air 04/17/23 23:00 Room Air 04/17/23 20:00 Room Air 04/17/23 20:21 Room Air 04/17/23 20:00 97.8 F 74 20 136/57 L 95 Room Air 04/17/23 18:47 Room Air 04/17/23 17:00 Room Air 04/17/23 15:00 Room Air 04/17/23 16:00 98.2 F 75 20 95/66 L 98 Room Air Intake and Output 04/17/23 04/18/23 04/18/23 23:59 07:59 15:59 Intake Total 410 / 1766 110 / 220 110 / 220 Output Total 0 / 551 0 / 0 Balance 410 / 1215 110 / 220 110 / 220 Intake: Intake, Oral Amount 360 / 600 60 / 170 110 / 170 Intake, Other Amount 50 / 273 Intake, Total IV Amount 50 / 50 Cefepime HCl 1 gm In 0.9 % 50 / 50 Sodium Chloride 50 ml @ 100 mls /hr IV Q12H [facility] Rx#:[id number] Output: Output, Urine Amount 0 / 551 0 / 0 Other: Number of Unmeasured Voids 1 1 Number of Bowel Movements 1 1 Weight 87.997 kg Patient Weight 04/18/23 23:59 Weight 87.997 kg Laboratory Results - last 24 hr 04/17/23 17:37: POC Glucose 142 H 04/17/23 20:05: POC Glucose 167 H 04/18/23 05:50: POC Glucose 111 H 04/18/23 06:20: WBC 7.4, RBC 3.87 L, Hgb 11.3 L, Hct 34.6 L, MCV 89.3, MCH 29.3, MCHC 32.8, RDW 16.3, Plt Count 151, MPV 8.8, Neut % (Auto) 67.1, Lymph % (Auto) 24.5, Hodgeman % (Auto) 5.8, Eos % (Auto) 2.2, Baso % (Auto) 0.5, Neut # (Auto) 5.0, Lymph # (Auto) 1.8, Hodgeman # (Auto) 0.4, Eos # (Auto) 0.2, Baso # (Auto) 0.0, Sodium 138, Potassium 3.6, Chloride 112 H, Carbon Dioxide 19 L, Anion Gap 10.6, BUN 45 H, Creatinine 1.50 H, Estimated Creat Clear 45, Estimated GFR 34 L, Est GFR ( Amer) 41 L D, Glucose 119 H, Calcium 7.3 L, Magnesium 0.7 L, Total Bilirubin 0.4, AST 28 D, ALT 28, Alkaline Phosphatase 58, Total Protein 5.7 L, Albumin 2.7 L, Globulin 3.0, Albumin/Globulin Ratio 0.9 L 04/18/23 12:57: Magnesium 1.3 L D I & O for Labs for Last 24 Hours: Intake & Output 04/15/23 04/16/23 04/17/23 04/18/23 23:59 23:59 23:59 23:59 Intake Total 240 / 240 2208 / 2208 1766 / 1766 220 / 220 Output Total 300 / 300 1300 / 1300 551 / 551 0 / 0 Balance -60 / -60 908 / 908 1215 / 1215 220 / 220 Weight 91.369 kg 87.453 kg 88.995 kg 87.997 kg Microbiology Reports for the Last 24 Hours: Microbiology 04/15/23 01:23 Urine,Catheterized Urine Culture - Final Escherichia coli Providencia rettgeri Additional Findings:: General: Elderly female, stable on room air. Obese. awake alert does not seem to be oriented to place or time. Oral cavity: MMM Chest: Diminished breath sounds at bases no signs of any respiratory distress CVS: Regular rate and rhythm Abdomen: Diffuse tenderness nonfocal. Bowel sounds present Extremities: Atrophy and deformity of the right upper extremity. 1+ edema of the bilateral lower extremities. Able to move all of the 3 extremities other than right upper Neuro: Awake alert not oriented to place or time. Able to move all 4 extremities but limited movement of the right upper. Assessment and Plan *Assessment and plan (1) Sepsis secondary to UTI: Status: Acute Category: Medical Code(s): A41.9 - Sepsis, unspecified organism; N39.0 - Urinary tract infectio
[2023-04-18 14:36] VITALS: BMI 31.1
[2023-04-18 15:43] VITALS: BP 123/60; PULSE 69; RESP 18; TEMP 36.7; O2SAT 98
[2023-04-18 20:00] VITALS: BP 129/79; PULSE 70; RESP 20; TEMP 36.8; O2SAT 99
[2023-04-18 20:30] LABS: POC Glucose,Bedside 157 (70-110)
[2023-04-19 04:00] VITALS: BP 143/73; PULSE 68; RESP 20; TEMP 36.7; O2SAT 100; BMI 31.4
[2023-04-19 05:57] LABS: Basophils % 0.5 % (0.1-2.0); Eosinophils # 0.2 K/mm3 (0.0-0.4); Eosinophils % 2.5 % (0.1-12.0); Hematocrit 32.6 % (37.0-47.0); Hemoglobin 10.6 g/dL (12.2-16.2); Lymphocytes # 1.5 K/mm3 (0.7-4.5); Lymphocytes % 21.9 % (10-50); Mean Corpuscular HGB Conc 32.5 g/dL (31.8-35.4); Mean Corpuscular Hemoglobin 29.7 pg (27.0-31.2); Mean Corpuscular Volume 91.2 fl (81-99); Mean Platelet Volume 9.1 fl (7.4-10.4); Monocytes # 0.5 K/mm3 (0.1-1.0); Monocytes % 7.1 % (1.7-9.3); Neutrophils # 4.5 K/mm3 (1.8-7.8); Platelet Count 141 K/mm3 (142-424); Red Blood Count 3.57 M/mm3 (4.20-5.40); Red Cell Distribution Width 16.4 % (11.5-17.5); White Blood Count 6.7 K/mm3 (4.8-10.8)
[2023-04-19 06:07] LABS: POC Glucose,Bedside 101 (70-110)
[2023-04-19 06:19] LABS: Alanine Aminotransferase 26 U/L (12-78); Albumin Level 2.5 g/dl (3.5-5.0); Albumin/Globulin Ratio 0.9 (1.1-1.8); Alkaline Phosphatase 54 U/L (38-126); Anion Gap 9.8 mEq/L (5-15); Aspartate Amino Transferase 28 U/L (14-36); Bilirubin,Total 0.4 mg/dl (0.2-1.3); Blood Urea Nitrogen 40 mg/dl (7-17); Calcium 7.3 mg/dl (8.4-10.2); Carbon Dioxide 19 mmol/L (22.0-30.0); Chloride 112 mmol/L (98-107); Creatinine Clearance Estimated 52 mL/min (50-200); Estimated Glomerular Filt Rate 40 ml/min (>60); GFR (African American) 48 ML/MIN (>60); Globulin 2.9 g/dL (1.3-3.2); Glucose 106 mg/dl (74-100); Potassium 3.8 mmoL/L (3.5-5.1); Sodium 137 mmol/L (136-145); Total Protein,Serum 5.4 g/dl (6.3-8.2)
[2023-04-19 06:20] LABS: Magnesium 1.7 mg/dl (1.6-2.3)
--- NOTE | 2023-04-19 07:54 | DIET.NUTRFU ---
Addendum entered by Celeste Baptiste RD, LD 04/19/23 08:56: Spoke with nursing, patient completed 100% of her oatmeal this morning with assistance with tray set-up. Original Note: Changed patient's diet order from regular to mechanical soft ground textures as this is what the patient receives at [facility]. Pt will continue to receive assistance at meals as needed and a nutritional supplement with dinner.
[2023-04-19 08:00] VITALS: BP 130/54; PULSE 81; RESP 18; TEMP 36.7; O2SAT 93
--- NOTE | 2023-04-19 08:00 | EXP.DC.SUM ---
General Admission date:: 04/15/23 Discharge date: 04/19/23 HPI HPI HPI: This is a 73-year-old female seen in consultation from the primary service for evaluation regarding pancreatitis. Please see HPI forwarded from admission H&P below. Lipase today 967 (490 yesterday) Bilirubin and transaminases normal CT scan without IV contrast obtained on April 14 revealed diffuse pancreatic atrophy with no acute or focal findings. Ultrasound obtained today very limited with pancreas obscured. The patient has a history of cholecystectomy. 73 year old female presents to the ED from [facility] for abnormal labs. Upon pt's arrival she only c/o intermittent vomiting. PMHX of CAD, DM, Atrial Fib, Obesity, and edema. In the ED the patient's lab work revealed a metabolic acidosis with CO2 of 9. AKILA w/ creatinine of 3.7, Lactate 5.0, BNP 5500, Lipase of 418, urine positive for leukocyte esterase, and anion gap of 26.7. The patient's abdominal CT was unremarkable. The pt has a hx of E coli in her urine cultures. Due to the risk of decompensation, the ED physician spoke with the hospitalist team for admission. The patient will be admitted to the medical floor for further treatment of her UTI and AKILA. She was started on cefepime and vancomycin. Upon my assessment the patient remains hemodynamically stable, afebrile, and is confused. She is unable to tell me what year or provide a medical history. Hospital Course Hospital Course Hospital Course: 73-year-old female from [facility] presented to ED for abnormal labs. In the ED patient was found to have metabolic acidosis with CO2 of 9, AKILA superimposed on CKD with creatinine of 3.7, lactate 5 and lipase of 418. UA positive for leukocyte esterase. Her anion gap was 26. Patient abdominal CT was unremarkable. Admitted for further management of sepsis with acute organ dysfunction, AKILA, elevated lactate, severe dehydration. Showing improvement since admission. Labs have shown improvement to patient's baseline. Urine culture positive for 2 pathogens as below, will treat with standard 7-day course. Stable for discharge back to [facility] to finish therapy. Problems addressed as follows: Sepsis, resolving UTI AKILA -Work-up initiated on arrival including blood cultures, urine cultures. Treated with broad-spectrum antibiotics. Urine culture returned positive for E. coli and Proteus. Both pathogen sensitive to levofloxacin. Antibiotics were transitioned to oral levofloxacin to complete a 7-day course. Given improvement in kidney function, will complete course of 750 mg daily by mouth. 2 more doses due after arrival to the nursing facility. White cell count has normalized. Recommend repeat CBC in 1 week to monitor stability of labs. Also recommend repeat CMP to monitor improvement in creatinine. Had AKILA on admission due to dehydration. Creatinine was at 3.7 on arrival, improved to 1.3 by day of discharge. Is essentially back to patient's baseline at this time. Hypomagnesemia Hypokalemia -Potassium normalized, tolerated repletion during hospitalization. 3.6 -Magnesium dropped during hospitalization to 0.7. Has improved with repletion. 1.7 on day of discharge. Continue p.o. supplementation twice daily as ordered. Recommend repeat level in 1 week with labs. Nausea Persistent belly pain -Longstanding abdominal pain. Nausea after p.o. antibiotics day before discharge. Responded well to Zofran. Continue Zofran as needed. Stable p.o. intake on day of discharge. Abdominal pain appears more functional. Low concern for pancreatitis. Pancreas has been atrophied for at least 2 years on imaging. May have component of chronic pancreatitis but nothing acute needing further work-up. Medical management of nausea. Follow-up recommendations as follows: Needs evaluation by PCP within 1 week. Repeat labs including CBC, CMP, magnesium level in 1 week. Finish antibiotics as prescribed above.
[2023-04-19 20:11] LABS: POC Glucose,Bedside 173 (70-110)
== END 2023-04-19 12:41 | DRG 872 ==
LOC: ER 23:53 → 2ND 04-15 01:41
PROVIDERS: Internal Medicine; Internal Medicine Adolescent Medicine; Nurse Practitioner Critical Care Medicine; Admitting Provider Internal Medicine; Emergency Provider Emergency Medicine; PCP Emergency Medicine; Visit Provider Internal Medicine
DX: A41.9 Sepsis, unspecified organism (principal); N39.0 Urinary tract infection, site not specified; E87.29 Other acidosis; N17.9 Acute kidney failure, unspecified; K86.1 Other chronic pancreatitis; N18.9 Chronic kidney disease, unspecified; E86.0 Dehydration; R79.89 Other specified abnormal findings of blood chemistry; F39 Unspecified mood [affective] disorder; I48.91 Unspecified atrial fibrillation; I25.118 Atherosclerotic heart disease of native coronary artery with other forms of angina pectoris; E03.9 Hypothyroidism, unspecified; E66.9 Obesity, unspecified; R65.20 Severe sepsis without septic shock; E11.22 Type 2 diabetes mellitus with diabetic chronic kidney disease; G20 Parkinson's disease; F02.80 Dementia in other diseases classified elsewhere, unspecified severity, without behavioral disturbance, psychotic disturbance, mood disturbance, and anxiety; Z68.31 Body mass index [BMI] 31.0-31.9, adult; E87.6 Hypokalemia; E83.42 Hypomagnesemia; R41.89 Other symptoms and signs involving cognitive functions and awareness
CPT/HCPCS: 36415; 71045; 74176; 76700; 80048; 80053; 81001; 82550; 82803; 82962; 83036; 83605; 83690; 83735; 83880; 84443; 84484; 85025; 87040; 87081; 87086; 87088; 87186; 93005; 93971; 99291; J0692; J2405; J3475

== ENCOUNTER 2023-06-07 07:10 | Emergency (ER) | payer MEDICARE, MEDICAID, SELFPAY ==
[2023-06-07] VITALS (8 sets, daily range): BP systolic 125–154; BP diastolic 49–76; PULSE 69–77; RESP 16; TEMP 36.6–36.7; O2SAT 95–99; BMI 38.0
--- NOTE | 2023-06-07 07:13 | XR_ITS ---
FINAL REPORT CLINICAL HISTORY: AMS, edema COMPARISON: 04/15/2023 FINDINGS: A single portable view of the chest was obtained. Left subclavian pacer is present. The heart size and pulmonary vascularity are within normal limits. The mediastinum is within normal limits. No acute pulmonary abnormality is identified. The bony thorax is intact. There is a chronic fracture of the right humerus. IMPRESSION: No active cardiopulmonary disease. Reviewed, Interpreted and Dictated by Santiago Finley III, MD Transcribed by Isabell Sanchez Authenticated and [facility]
--- NOTE | 2023-06-07 07:13 | CT_ITS ---
FINAL REPORT CLINICAL HISTORY: [facility] COMPARISON: 02/08/2023 FINDINGS: Axial images of the head were obtained without contrast. Coronal reformatted images were also obtained. This study was performed with techniques to keep radiation doses as low as reasonably achievable (ALARA). Individualized dose reduction techniques using automated exposure control or adjustment of mA and/or kV according to the patient's size were employed. There is generalized age-appropriate atrophy. Periventricular low-attenuation areas are seen consistent with mild chronic ischemic changes. There is no evidence of intracranial hemorrhage or mass. 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 There is stable chronic left periventricular lacunar infarct. There is no evidence of acute infarct. There is no evidence of shift of the midline structures. No skull abnormality is seen on the bone window images. IMPRESSION: Atrophy and mild periventricular chronic ischemic changes. No acute intracranial abnormality identified. Reviewed, Interpreted and Dictated by Santiago Finley III, MD Transcribed by Isabell Sanchez Authenticated and [facility]
--- NOTE | 2023-06-07 07:15 | PC.NURSE ---
bladder scan showed 79 mL
--- NOTE | 2023-06-07 07:15 | ECG_ITS ---
APPROVED REPORT Exam: Resting ECG HR:70 bpm ECG Measurements Heart Rate 70 AXES MD 229 P -79 QRSd 180 QRS -80 QT 454 T 86 QTc 475 Conclusion ELECTRONIC ATRIAL PACEMAKER ELECTRONIC VENTRICULAR PACEMAKER ABNORMAL RHYTHM ECG UNCONFIRMED REPORT Electronically signed by : Pérez Xiong MD 06/09/2023 16:10:47
[2023-06-07 07:31] LABS: Microscopic, Urine URINE MICROSCOPIC (MICROSCOPIC)
[2023-06-07 07:33] LABS: Bilirubin,Urine Negative (Negative); Blood, Urine TRACE-I (Negative); Color,Urine YELLOW (Yellow); Glucose,Urine (UA) Negative (Negative); Ketones,Urine TRACE (Negative); Leukocyte Esterase,Urine 3+ (Negative); Nitrate,Urine Negative (Negative); Protein,Urine Negative (Negative); Specific Gravity, Urine 1.025 (1.005-1.030); Urobilinogen,Urine 0.2 EU/dl (0.2)
[2023-06-07 07:35] LABS: Appearance,Urine Slightly Cloudy (Clear)
--- NOTE | 2023-06-07 07:35 | HMH.EDGENADL ---
Discharge Plan Disposition Patient Disposition: Home, Self-Care Prescriptions Prescriptions: New cefdinir 300 mg capsule 300 mg PO BID 7 Days Qty: 14 0RF Lokelma 10 gram powder in packet 10 g PO DAILY Qty: 7 0RF No Action tramadol 50 mg tablet 50 mg PO BID PRN (Reason: pain) Qty: 60 2RF carvedilol 6.25 mg tablet 6.25 mg PO BID amiodarone 200 mg tablet 200 mg PO DAILY Patient Comments: TAKE 1 TABLET BY MOUTH ONCE DAILY FOR HEART RATE/ATRIAL FIBRILLATION metformin 1,000 mg tablet 1,000 mg PO BID Patient Comments: TAKE 1 TABLET BY MOUTH TWICE DAILY FOR DIABETES levothyroxine 150 mcg tablet 150 mcg PO AM Patient Comments: TAKE 1 TABLET BY MOUTH ONCE DAILY FOR THYROID furosemide [Lasix] 20 mg tablet 20 mg PO Q48H Xarelto 10 mg tablet 20 mg PO QPMWITHMEAL acetaminophen 500 mg Tablet 500 mg PO Q4HP PRN (Reason: pain/fever) lactulose 10 gram/15 mL solution 30 ml PO DAILY nystatin 100,000 unit/gram Powder 1 applic TOPICAL DAILYP PRN (Reason: skin irritaiton) magnesium oxide 400 mg (241.3 mg magnesium) Tablet 400 mg PO BID 30 Days Qty: 60 0RF levofloxacin 750 mg Tablet 750 mg PO DAILY 2 Days Qty: 2 0RF Rx Instructions: first dose 04/20 Referrals Follow up/Referrals: Provider,Referral, MD [Referring] - See instructions Activity Restrictions/Add. Instructions Additional Instructions/Restrictions: Lokelma daily for 7 days, cefdinir twice daily for 7 days. Call your family doctor to establish care for this visit to the emergency department and schedule follow-up within 48 hours to ensure improvement. If you have any worsening of your condition or any other concerning signs or symptoms, return to the emergency department or your primary care doctor for further evaluation. Clinical Impressions Clinical Impression: Acute UTI, Acute hyperkalemia Instructions Patient Instructions: DI for Altered Mental Status Discharge ED Provider: Omer Natarajan General Adult HPI General Chief complaint: Altered Mental Status Stated complaint: AMS, BLE swelling, no urination for 24 hr Time Seen by Provider: 06/07/23 07:11 Related Data Home Medications Medication Instructions Recorded Confirmed amiodarone 200 mg tablet 200 mg PO DAILY Heart rhythm 02/08/23 04/15/23 carvedilol 6.25 mg tablet 6.25 mg PO BID High blood pressure 02/08/23 04/15/23 levothyroxine 150 mcg tablet 150 mcg PO AM Thyroid 02/08/23 04/15/23 metformin 1,000 mg tablet 1,000 mg PO BID Diabetes 02/08/23 04/15/23 acetaminophen 500 mg tablet 500 mg PO Q4HP PRN pain/fever 04/15/23 04/15/23 furosemide 20 mg tablet (Lasix) 20 mg PO Q48H Heart Failure 04/15/23 04/15/23 lactulose 10 gram/15 mL oral 30 ml PO DAILY Constipation 04/15/23 04/15/23 solution nystatin 100,000 unit/gram topical 1 applic topical DAILYP PRN skin 04/15/23 04/15/23 powder irritaiton rivaroxaban 10 mg tablet (Xarelto) 20 mg PO QPMWITHMEAL Blood 04/15/23 04/15/23 Thinner/atrial fib Previous Rx's Medication Instructions Recorded levofloxacin 750 mg tablet 750 mg PO DAILY 2 days #2 tabs 04/19/23 magnesium oxide 400 mg (241.3 mg 400 mg PO BID 30 days #60 tabs 04/19/23 magnesium) tablet tramadol 50 mg tablet 50 mg PO BID PRN pain #60 tabs 05/30/23 cefdinir 300 mg capsule 300 mg PO BID 7 days #14 caps 06/07/23 sodium zirconium cyclosilicate 10 10 g PO DAILY #7 ea 06/07/23 gram oral powder packet (Lokelma) Allergies Allergy/AdvReac Type Severity Reaction Status Date / Time oxycodone [OXYCODONE] Allergy Severe MOUTH AND Verified 06/07/23 07:46 THROAT SWELL quetiapine [From SEROQUEL] Allergy Unknown Unknown Verified 06/07/23 07:46 allergy reaction [facility] Disclaimer: The information contained in this section may have been updated after the patient was seen, as this information can be updated by other users. Medical History (Reviewed 02/08/23 @ 20
[2023-06-07 07:39] LABS: Basophils # 0.1 K/mm3 (0-0.2); Basophils % 0.6 % (0.1-2.0); Eosinophils # 0.4 K/mm3 (0.0-0.4); Eosinophils % 4.5 % (0.1-12.0); Hematocrit 36.6 % (37.0-47.0); Hemoglobin 11.4 g/dL (12.2-16.2); Lymphocytes # 2.2 K/mm3 (0.7-4.5); Lymphocytes % 24.2 % (10-50); Mean Corpuscular Hemoglobin 29.4 pg (27.0-31.2); Mean Corpuscular Volume 94.8 fl (81-99); Mean Platelet Volume 8.1 fl (7.4-10.4); Monocytes # 0.5 K/mm3 (0.1-1.0); Neutrophils # 5.9 K/mm3 (1.8-7.8); Neutrophils % 65.7 % (37.0-80.0); Platelet Count 319 K/mm3 (142-424); Red Blood Count 3.87 M/mm3 (4.20-5.40); Red Cell Distribution Width 16.2 % (11.5-17.5)
[2023-06-07 07:46] LABS: Bacteria,Urine 4+ /lpf; RBC,Urine Occasional #/hpf (0-3); WBC,Urine 50-100 #/hpf (0-3)
[2023-06-07 07:47] LABS: Alanine Aminotransferase 32 U/L (12-78); Albumin Level 2.6 g/dl (3.5-5.0); Albumin/Globulin Ratio 0.7 (1.1-1.8); Alkaline Phosphatase 140 U/L (38-126); Anion Gap 11.5 mEq/L (5-15); Aspartate Amino Transferase 32 U/L (14-36); Bilirubin,Total 0.2 mg/dl (0.2-1.3); Blood Urea Nitrogen 30 mg/dl (7-17); Calcium 8.6 mg/dl (8.4-10.2); Carbon Dioxide 27 mmol/L (22.0-30.0); Chloride 100 mmol/L (98-107); Creatinine Clearance Estimated 41 mL/min (50-200); Estimated Glomerular Filt Rate 26 ml/min (>60); GFR (African American) 31 ML/MIN (>60); Globulin 3.6 g/dL (1.3-3.2); Glucose 109 mg/dl (74-100); Potassium 5.5 mmoL/L (3.5-5.1); Sodium 133 mmol/L (136-145); Total Protein,Serum 6.2 g/dl (6.3-8.2)
[2023-06-07 07:48] LABS: Creatine Kinase < 20 U/L (30-135)
[2023-06-07 07:57] LABS: NT Pro Brain Natriuretic Pep. 3160 pg/mL (0-450)
[2023-06-07 08:20] LABS: Troponin I < 0.01 ng/ml (0.00-0.034)
--- NOTE | 2023-06-07 08:21 | PC.NURSE ---
rounded on pt, no new complaints. fixed SpO2 sensor.
--- NOTE | 2023-06-07 09:53 | PC.NURSE ---
rounded on patient; no needs at this time. call pascual within reach
--- NOTE | 2023-06-07 10:41 | PC.NURSE ---
Called [facility] for transfer back to [place]. PCS form completed. No pre-auth required d/t Medicare/Medicaid.
--- NOTE | 2023-06-07 10:49 | PC.NURSE ---
s/w Garrett Kwon regarding changing Lasix 40mg from IVP to IM injection. States it is ok and he will place order in NOV.
--- NOTE | 2023-06-13 09:26 | PC.NURSE ---
spoke with NAY Gibbs at [facility] about pt positive urine culture. instructed her that the patient needs to continue current antibiotic and add macrobid.
== END 2023-06-07 11:14 | disposition home or self-care (01) ==
PROVIDERS: Emergency Provider Emergency Medicine; PCP Emergency Medicine
DX: N39.0 Urinary tract infection, site not specified (principal); E87.5 Hyperkalemia; I25.10 Atherosclerotic heart disease of native coronary artery without angina pectoris; N18.9 Chronic kidney disease, unspecified; G20 Parkinson's disease; I50.9 Heart failure, unspecified; I48.91 Unspecified atrial fibrillation; Z79.01 Long term (current) use of anticoagulants
CPT/HCPCS: 70450; 71045; 80053; 81001; 82550; 83880; 84484; 85025; 87086; 87088; 87186; 93005; 96374; 96375; 99285; J0696

== ENCOUNTER → 2023-06-29 07:09 | Outpatient (CLI) | payer MEDICARE, MEDICAID, SELFPAY ==
--- NOTE | 2023-06-29 07:42 | CA_ITS ---
APPROVED REPORT EXAM: Comprehensive 2D, Doppler, and color-flow Echocardiogram Supervisor Wool Shearing: FLASH Son, RVS Ht: 5 ft 4 in Wt: 240lbs BSA: 2.11 BP: 120/80 mmHg Indications: CP,SOA,cough, s/p CVA wheelchair bound with arms contracted across chest Echo Enhancing Agent Comments: Extremely limited windows due to patient factors 2D Dimensions IVSd 0.72 cm F: 0.6-1.0 LVEF (Visual) 58.60 % PWd 0.76 cm F: 0.6 - 1.0 LVEF (Muniz's) 41.30 % F: 54 - 74 LVDd 4.42 cm F: 3.9 - 5.3 LV Volume 45.50 mL F: 46 - 106 LVDs 3.36 cm F: 2.2 - 3.5 LV Volume Index 21.46 mL/m2 F: 29 - 61 Aortic Root 2.67 cm F: 2.7 - 3.3 LA Volume 70.20 mL Left Atrium 2.72 cm F: 2.7 - 3.8 LA Volume Index 33.11 mL/m2 (M/F) 16-34 LVOT 1.98 cm (M/F) 1.5-2.5 M-Mode Dimensions LA Diam 3.05 cm (1.9-4.0) Ao Diam 2.74 cm (2.0-3.7) TAPSE 1.02 (<1.7) LV Diastology E Decel Time 150.00 (160-240 msec) E/A Ratio 0.56 MED E' 42.50 (< 7 cm/sec) MED A' 61.60 cm/s E'/MED E' Ratio 1.22 (>14) LAT E' 8.30 (<10 cm/sec) LAT A' 17.30 cm/s E/LAT E' Ratio 6.24 (>14) Aortic Valve LVOT Max 52.00 (70-110 cm/s) LVOT VTI 9.62 cm AO Peak GR. 4.60 mmHg Mitral Valve MV A Velocity 93.00 (40-130 cm/s) E/A Ratio 0.56 MV Decel. Time 150.00 (160-240 ms) Left Ventricle The left ventricle is normal size. The left ventricular systolic function is normal. The left ventricular ejection fraction is within the normal range. There is increased LV wall thickness. There is normal LV segmental wall motion. Transmitral Doppler flow pattern suggests impaired LV relaxation. LVEF is 55%. Right Ventricle The right ventricle grossly appears at least mildly dilated. The right ventricular systolic function is normal. Atria The left atrium size is normal. The right atrium is not well visualized. Aortic Valve The aortic valve is mildly thickened. There is no aortic valvular stenosis. No aortic regurgitation is present. Mitral Valve The mitral valve is mildly thickened. No evidence of mitral valve stenosis. There is no mitral valve regurgitation noted. Tricuspid Valve The tricuspid valve leaflets are not well visualized. Pulmonic Valve The pulmonic valve is not well visualized. Great Vessels The aortic root is normal in size. The ascending aorta is not well visualized. The IVC is not well visualized. Pericardium There is no pericardial effusion. Other Information Study Quality: Technically Difficult. Technically limited study due to inability to position patient. Conclusion This is a technically difficult study due to poor acoustic windows and inability to position patient. Grossly, normal biventricular systolic function. The RV grossly appears at least mildly dilated. No significant valvular stenosis or regurgitation of the AV and MV, but the TV and PV are not well visualized. Electronically signed by : Mary Ann Yip MD 06/29/2023 21:27:47
== END ==
PROVIDERS: PCP Emergency Medicine; Visit Provider Physician Assistant
DX: I20.89 Other forms of angina pectoris; E11.9 Type 2 diabetes mellitus without complications; G20.C Parkinsonism, unspecified; I48.91 Unspecified atrial fibrillation; Z95.0 Presence of cardiac pacemaker
CPT/HCPCS: 93306

== ENCOUNTER 2023-06-30 05:42 | Inpatient (IN) | payer MEDICARE, MEDICAID, SELFPAY ==
[2023-06-30] VITALS (11 sets, daily range): BP systolic 105–124; BP diastolic 47–77; PULSE 66–79; RESP 13–20; TEMP 36.5–36.6; O2SAT 90–100; BMI 34.7; BMI 36.8; BMI 36.7
--- NOTE | 2023-06-30 05:29 | PC.NURSE ---
Received report from MA Jennifer: was told patient is being sent for eval for what they suspect is sepsis. Patient is currently being treated for a UTI with IM Invanz. Patient is exhibiting a deterioration in mental status, although reported baseline is altered as well. PMH: DM, recent dc of Metformin due to a kidney related injury. Afebrile. HR 135, O2 80-85% and was placed on NC @ 2lpm. Weight 202.8.
--- NOTE | 2023-06-30 05:58 | PC.NURSE ---
in room talking with patient at this time.
--- NOTE | 2023-06-30 06:01 | HMH.EDGENADL ---
Discharge Plan Disposition Patient Disposition: Admitted Condition: Fair Clinical Impressions Clinical Impression: Hypoxia Altered mental status Qualifiers: Altered mental status type: unspecified Qualified Code(s): R41.82 - Altered mental status, unspecified Discharge ED Provider: Marino Tijerina General Adult HPI <Clinton Velazquez MD - Last Filed: 06/30/23 07:19> General Chief complaint: Altered Mental Status Stated complaint: altered mental status Time Seen by Provider: 06/30/23 05:52 History of Present Illness HPI narrative: 73-year-old female history of dementia, diabetes, coronary artery disease, A-fib reportedly on Xarelto, CKD, recurrent UTIs presents with altered mental status and hypoxia. Patient is awake, moans with painful stimuli, does not answer any questions. Per senior living report, patient is currently being treated with ertapenem daily starting 3 days ago for ESBL UTI. She has had multiple UTIs recently. They found her this morning with altered mental status, tachycardia, hypoxia. Upon EMS arrival patient was satting 81, improved to 100% with 4 L nasal cannula. Fingerstick normal. No reported trauma. Patient appears bedridden. Patient has productive sounding cough on exam. Related Data Home Medications Medication Instructions Recorded Confirmed amiodarone 200 mg tablet 200 mg PO DAILY Heart rhythm 02/08/23 06/30/23 carvedilol 6.25 mg tablet 6.25 mg PO BID High blood pressure 02/08/23 06/30/23 levothyroxine 150 mcg tablet 150 mcg PO AM Thyroid 02/08/23 06/30/23 metformin 1,000 mg tablet 1,000 mg PO BID Diabetes 02/08/23 06/12/23 acetaminophen 500 mg tablet 500 mg PO Q4HP PRN pain/fever 04/15/23 06/30/23 furosemide 20 mg tablet (Lasix) 20 mg PO Q48H Heart Failure 04/15/23 06/30/23 lactulose 10 gram/15 mL oral 30 ml PO DAILY Constipation 04/15/23 06/30/23 solution rivaroxaban 10 mg tablet (Xarelto) 20 mg PO QPMWITHMEAL Blood 04/15/23 06/30/23 Thinner/atrial fib ondansetron HCl 4 mg tablet 4 mg PO Q6H PRN Nausea And Vomiting 06/12/23 06/30/23 Previous Rx's Medication Instructions Recorded magnesium oxide 400 mg (241.3 mg 400 mg PO BID 30 days #60 tabs 04/19/23 magnesium) tablet tramadol 50 mg tablet 50 mg PO BID PRN pain #60 tabs 05/30/23 nitrofurantoin macrocrystal 100 mg 100 mg PO BID 5 days #10 caps 06/12/23 capsule Allergies Allergy/AdvReac Type Severity Reaction Status Date / Time oxycodone [OXYCODONE] Allergy Severe MOUTH AND Verified 06/30/23 09:52 THROAT SWELL quetiapine [From SEROQUEL] Allergy Unknown Unknown Verified 06/30/23 09:52 allergy reaction PFSH <Clinton Velazquez MD - Last Filed: 06/30/23 07:19> [facility] Disclaimer: The information contained in this section may have been updated after the patient was seen, as this information can be updated by other users. Medical History Atypical angina Basal ganglia stroke CAD (coronary artery disease) Chronic renal insufficiency DJD (degenerative joint disease), cervical DJD (degenerative joint disease), lumbar Dyspnea Fracture, humerus, anatomical neck H/O: CVA (cerebrovascular accident) Pancreatitis, acute Parkinson disease Right humeral fracture Family History Coronary artery disease Cancer Social History Smoking Status: Unknown if ever smoked alcohol intake: never substance use type: denies use current occupational status: disabled Travel in the last 8 weeks: None caregiver/support person: Yes household members: other housing: senior living current occupational exposures/hazards: No caffeine: Yes <Clinton Velazquez MD - Last Filed: 06/30/23 07:19> ROS Obtained: Yes unobtainable due to mental condition Physical Exam <Clinton Velazquez MD - Last Filed: 06/30/23 07:19> General General appearance: alert and in no appare
--- NOTE | 2023-06-30 06:04 | XR_ITS ---
PROCEDURE INFORMATION: Exam: XR Chest Exam date and time: 06/30/2023 6:32 AM Age: 73 years old Clinical indication: Cough; Additional info: Cough, hypoxia, AMS TECHNIQUE: Imaging protocol: Radiologic exam of the chest. Views: 1 view. COMPARISON: CR XR CHEST PORTABLE 06/07/2023 7:31 AM FINDINGS: Tubes, catheters and devices: A pacemaker overlies and obscures the left chest with atrial and ventricular leads. Lungs: Lung volumes are low with elevation of the right hemidiaphragm. Pleural spaces: Unremarkable. No pleural effusion. No pneumothorax. Heart/Mediastinum: Unremarkable. No cardiomegaly. Bones/joints: The bones are osteopenic. IMPRESSION: Low lung volumes. Elevation of the left hemidiaphragm.
[2023-06-30 06:17] LABS: Microscopic, Urine URINE MICROSCOPIC (MICROSCOPIC)
[2023-06-30 06:23] LABS: Appearance,Urine CLEAR (Clear); Blood, Urine TRACE-I (Negative); Color,Urine YELLOW (Yellow); Glucose,Urine (UA) Negative (Negative); Ketones,Urine TRACE (Negative); Leukocyte Esterase,Urine 2+ (Negative); Nitrate,Urine Negative (Negative); Protein,Urine Negative (Negative); Urobilinogen,Urine 0.2 EU/dl (0.2)
[2023-06-30 06:27] LABS: Bilirubin,Urine Negative (Negative)
--- NOTE | 2023-06-30 06:36 | CT_ITS ---
FINAL REPORT CLINICAL HISTORY: Altered mental status, weakness COMPARISON: 06/07/2023 FINDINGS: Axial images of the head were obtained without contrast. Coronal reformatted images were also obtained. This study was performed with techniques to keep radiation doses as low as reasonably achievable (ALARA). Individualized dose reduction techniques using automated exposure control or adjustment of mA and/or kV according to the patient's size were employed. There is generalized age-appropriate atrophy. Periventricular low-attenuation areas are seen consistent with mild chronic ischemic changes. There is no evidence of intracranial hemorrhage or mass. There is no evidence of acute infarct. There is a chronic left periventricular lacunar infarct. There is left occipital encephalomalacia. There is no evidence of shift of the midline structures. No skull abnormality is seen on the bone window images. There is mucosal thickening in the left maxillary sinus. IMPRESSION: Stable chronic changes. No acute intracranial abnormality identified. Reviewed, Interpreted and Dictated by Santiago Finley III, MD Transcribed by Irma Barr Authenticated and . [facility]
--- NOTE | 2023-06-30 06:36 | CT_ITS ---
FINAL REPORT TECHNIQUE: Then section axial CT images of the chest were obtained with contrast. Three-D reformatted images were also obtained.This study was performed with techniques to keep radiation doses as low as reasonably achievable (ALARA). Individualized dose reduction techniques using automated exposure control or adjustment of mA and/or kV according to the patient''s size were employed. CLINICAL HISTORY: soa, hypoxia, ams, limb swelling COMPARISON: 02/08/2023 FINDINGS: A left subclavian pacemaker is present. There is no evidence of pulmonary embolism. There is no evidence of thoracic aortic aneurysm or dissection. There is no evidence of mediastinal or hilar mass or adenopathy. There is a 13 mm soft tissue nodule in the prevascular space. This is stable and likely represents a lymph node. There is elevation of the right hemidiaphragm. Right base atelectasis is noted. There is a chronic fracture of the proximal right humerus. IMPRESSION: No evidence of pulmonary embolism. No mass or localized inflammatory process. Reviewed, Interpreted and Dictated by Santiago Finley III, MD Transcribed by Irma Barr Authenticated and [facility]
--- NOTE | 2023-06-30 06:36 | CT_ITS ---
FINAL REPORT CLINICAL HISTORY: abd pain, recurrent UTI, ams, sepsis COMPARISON: 04/15/2023 FINDINGS: CT OF THE ABDOMEN AND PELVIS WITH CONTRAST Axial CT images of the abdomen and pelvis were obtained after the administration of oral and iv contrast. Coronal reformatted images were also obtained and reviewed.This study was performed with techniques to keep radiation doses as low as reasonably achievable (ALARA). Individualized dose reduction techniques using automated exposure control or adjustment of mA and/or kV according to the patient's size were employed. Abdomen: The liver has an unremarkable appearance, without evidence of mass or biliary ductal dilatation. The patient is status postcholecystectomy. There is a wedge shaped low-attenuation area in the spleen consistent with an infarct. No adrenal mass is present. The pancreas has an unremarkable appearance. There is bilateral renal scarring. A nonobstructing stone is seen in the lower pole of the left kidney measuring 7 mm. The aorta is normal in caliber. There is mild anasarca. There are moderate vascular calcifications. Pelvis: There is descending and sigmoid diverticulosis with no evidence of diverticulitis. The appendix is not well-visualized. The urinary bladder is unremarkable. No inflammatory process is seen. There is no evidence of mass or adenopathy. There is no evidence of bowel obstruction. IMPRESSION: Wedge-shaped low-attenuation area in the spleen consistent with an infarct. Mild anasarca. Descending and sigmoid diverticulosis with no evidence of diverticulitis. Nonobstructing left renal stone. Reviewed, Interpreted and Dictated by Santiago Finley III, MD Transcribed by Irma Barr Authenticated and [facility]
[2023-06-30 06:37] LABS: Basophils % 0.2 % (0.1-2.0); Eosinophils # 0.2 K/mm3 (0.0-0.4); Eosinophils % 3.1 % (0.1-12.0); Hematocrit 35.8 % (37.0-47.0); Hemoglobin 10.8 g/dL (12.2-16.2); Lymphocytes % 28.2 % (10-50); Mean Corpuscular HGB Conc 30.3 g/dL (31.8-35.4); Mean Corpuscular Hemoglobin 28.9 pg (27.0-31.2); Mean Corpuscular Volume 95.5 fl (81-99); Mean Platelet Volume 9.1 fl (7.4-10.4); Monocytes # 0.3 K/mm3 (0.1-1.0); Monocytes % 4.4 % (1.7-9.3); Neutrophils # 4.4 K/mm3 (1.8-7.8); Neutrophils % 64.2 % (37.0-80.0); Platelet Count 241 K/mm3 (142-424); Red Blood Count 3.75 M/mm3 (4.20-5.40); White Blood Count 6.9 K/mm3 (4.8-10.8)
[2023-06-30 06:48] LABS: Chloride 104 mmol/L (98-107); Potassium 5.4 mmoL/L (3.5-5.1); Sodium 136 mmol/L (136-145)
[2023-06-30 06:50] LABS: Blood Urea Nitrogen 44 mg/dl (7-17); Creatinine Clearance Estimated 35 mL/min (50-200); Estimated Glomerular Filt Rate 24 ml/min (>60); GFR (African American) 29 ML/MIN (>60)
[2023-06-30 06:51] LABS: Alanine Aminotransferase 44 U/L (12-78); Albumin Level 2.3 g/dl (3.5-5.0); Albumin/Globulin Ratio 0.7 (1.1-1.8); Alkaline Phosphatase 116 U/L (38-126); Anion Gap 8.4 mEq/L (5-15); Aspartate Amino Transferase 61 U/L (14-36); Bilirubin,Total 0.5 mg/dl (0.2-1.3); Calcium 7.9 mg/dl (8.4-10.2); Carbon Dioxide 29 mmol/L (22.0-30.0); Globulin 3.3 g/dL (1.3-3.2); Glucose 82 mg/dl (74-100); Total Protein,Serum 5.6 g/dl (6.3-8.2)
[2023-06-30 06:52] LABS: Magnesium 2.8 mg/dl (1.6-2.3)
--- NOTE | 2023-06-30 06:57 | PC.NURSE ---
call placed to lab for 2nd set of cultures
[2023-06-30 07:00] LABS: NT Pro Brain Natriuretic Pep. 28600 pg/mL (0-450)
[2023-06-30 07:03] LABS: Acetone, Serum (Rapid) None Detected (None Detect)
[2023-06-30 07:05] LABS: Bacteria,Urine 1+ /lpf
--- NOTE | 2023-06-30 07:06 | PC.NURSE ---
spoke with johan with rad re: ct scans. both dr nur and dr hernadez agreed she needs the iv contrast.rad made aware. discussed bnp with both dr's and notified them of chemistry panel results.
--- NOTE | 2023-06-30 07:10 | PC.NURSE ---
lab at to draw 2nd set of blood cultures. Lab was unable to use the blood that they were able to obtain r/t it was diluted r/t sticking above IV site. Pt refusing additional needle sticks at this time. Pt refuses to let staff stick her R arm. ER aware.
--- NOTE | 2023-06-30 07:20 | ECG_ITS ---
APPROVED REPORT Exam: Resting ECG HR:70 bpm ECG Measurements Heart Rate 70 AXES NE 210 P 119 QRSd 198 QRS -69 QT 517 T 114 QTc 537 Conclusion ELECTRONIC ATRIAL PACEMAKER ELECTRONIC VENTRICULAR PACEMAKER ABNORMAL RHYTHM ECG UNCONFIRMED REPORT Electronically signed by : Pérez Xiong MD 07/01/2023 07:58:55
[2023-06-30 07:29] LABS: VBG Base Excess 3.6 mmol/L (-2.4-2.3); VBG HCO3 28.6 mmol/L (23-30); VBG Oxygen Saturation 92.8 % (50-70); VBG PCO2 48.9 mmol/L (35-51); VBG PH 7.39 mmol/L (7.31-7.41); VBG PO2 69.9 mmol/L (28-40); VBG Total CO2 30.1 mmol/L (23-27)
--- NOTE | 2023-06-30 07:45 | PC.NURSE ---
Pt returned from RAD
--- NOTE | 2023-06-30 07:45 | PC.NURSE ---
pt return from CT via stretcher
[2023-06-30 07:57] LABS: D-Dimer 0.83 ug/mL (0.0-0.5)
--- NOTE | 2023-06-30 08:10 | PC.NURSE ---
attempted to draw second set of blood cultures from IV in left wrist. unsuccessful. lab attempted to stick pt but blood was diluted. pt is refusing further IV sticks at this time. first set of blood cultures were obtained with initial IV stick. while blood pressure cuff was taking pt yells out, make it stop . reassured pt blood pressure cuff would go down and to try and relax. pt provided warm blankets, lights turned down,call light within reach. pt resting in bed.
--- NOTE | 2023-06-30 08:10 | PC.NURSE ---
Addendum entered by Darrin Ang RN 06/30/23 08:16: attempted to draw second set of blood cultures from IV in left wrist. unsuccessful. lab attempted to stick pt but blood was diluted. first set of blood cultures were obtained with initial IV stick. while blood pressure cuff was taking pt yells out, make it stop . reassured pt blood pressure cuff would go down and to try and relax. pt provided warm blankets, lights turned down,call light within reach. pt resting in bed. Original Note: attempted to draw second set of blood cultures from IV in left wrist. unsuccessful. lab attempted to stick pt but blood was diluted. first set of blood cultures were obtained with initial IV stick. while blood pressure cuff was taking pt yells out, make it stop . reassured pt blood pressure cuff would go down and to try and relax. pt provided warm blankets and turned down the lights. pt resting in bed.
--- NOTE | 2023-06-30 09:27 | PC.NURSE ---
Spoke with Holley in Case Management regarding patient admission to Hospitalist
--- NOTE | 2023-06-30 09:30 | PC.NURSE ---
Dr Orozco, Hospitalist at
--- NOTE | 2023-06-30 09:40 | PC.NURSE ---
Dr. Orozco reports he turned patients oxygen down to 3L, NC. Pt maintaining well at this time.
--- NOTE | 2023-06-30 09:40 | EXP.HP ---
History of Present Illness *Admission Date: 06/30/23 *Reason for visit:: altered mental status, hypoxia *History of present illness: Unable to obtain history from patient due to confusion. Opens eyes to questioning but no meaningful response. Complains of shortness of breath and wanting to sit up. History obtained from chart and ER notes. Ms. Lee is a longtime resident at [facility]. History of dementia, diabetes, CAD, A-fib on chronic anticoagulation, CKD, recurrent UTIs, obesity. She presented to the ER because of some increased oxygen requirement, worsening confusion, and decreased p.o. intake. Patient is awake but does not answer questions appropriately. Responds to verbal and painful stimuli with opening eyes and trying to talk. Per the assisted, she has been treated for a UTI with initiation of ertapenem that was begun 3 days ago. Also was given a liter of IV fluid in the past 2 days because of creatinine of 2.3 on 06/23. Previous UTIs show Klebsiella, Providencia, and E. coli. All sensitive to ertapenem and meropenem. On arrival to the ER, patient is encephalopathic, necessitating supplemental oxygen at 4 L (baseline room air). Labs reviewed, no leukocytosis. Still has AKILA with creatinine at 2 (baseline approximately 1.5). Patient was initiated on meropenem in the ER and medicine was consulted for admission and further management. On evaluation, review of patient's CT of her chest shows no effusions or focal airspace disease. Oxygen weaned to 3 L during my exam with O2 sats in the high 90s. Noted to have significant lower extremity edema, BNP 28,000. [facility] Disclaimer: The information contained in this section may have been updated after the patient was seen, as this information can be updated by other users. Reviewed from chart, unable to obtain history from patient given encephalopathy Medical History Atypical angina Basal ganglia stroke CAD (coronary artery disease) Chronic renal insufficiency DJD (degenerative joint disease), cervical DJD (degenerative joint disease), lumbar Dyspnea Fracture, humerus, anatomical neck H/O: CVA (cerebrovascular accident) Pancreatitis, acute Parkinson disease Right humeral fracture Family History Coronary artery disease Cancer Social History (Updated 06/30/23 @ 11:25 by Bernie Santos RN) Smoking Status: Unknown if ever smoked alcohol intake: never substance use type: denies use current occupational status: disabled Travel in the last 8 weeks: None caregiver/support person: Yes household members: other housing: assisted current occupational exposures/hazards: No caffeine: Yes Review of Systems Review of Systems Review of systems:: unable to obtain Meds Home Medications and Allergies Home Medications Medication Instructions Recorded Confirmed Type amiodarone 200 mg tablet 200 mg PO DAILY Heart rhythm 02/08/23 06/30/23 History carvedilol 6.25 mg tablet 6.25 mg PO BID High blood pressure 02/08/23 06/30/23 History levothyroxine 150 mcg tablet 150 mcg PO AM Thyroid 02/08/23 06/30/23 History acetaminophen 500 mg tablet 500 mg PO Q4HP PRN pain/fever 04/15/23 06/30/23 History furosemide 20 mg tablet (Lasix) 20 mg PO Q48H Heart Failure 04/15/23 06/30/23 History lactulose 10 gram/15 mL oral 30 ml PO DAILY PRN Constipation 04/15/23 06/30/23 History solution rivaroxaban 10 mg tablet (Xarelto) 20 mg PO QPMWITHMEAL Blood 04/15/23 06/30/23 History Thinner/atrial fib magnesium oxide 400 mg (241.3 mg 400 mg PO BID 30 days #60 tabs 04/19/23 06/30/23 Rx magnesium) tablet tramadol 50 mg tablet 50 mg PO BID PRN pain #60 tabs 05/30/23 06/30/23 Rx ondansetron HCl 4 mg tablet 4 mg PO Q6H PRN Nausea And Vomiting 06/12/23 06/30/23 History sodium zirconium cyclosilicate 10 10 g PO DAILY High Potassium 06/30/23 06/30/23 History gram oral powder
--- NOTE | 2023-06-30 10:07 | PC.NURSE ---
report called to lina on second floor
[2023-06-30 10:11] LABS: Coronavirus 19, PCR Not Detected (NotDetected); Influenza A, PCR Not Detected (NotDetected); Influenza B, PCR Not Detected (NotDetected)
--- NOTE | 2023-06-30 10:36 | PC.NURSE ---
arrived to floor by stretcher from ED
--- NOTE | 2023-06-30 12:53 | SW/DCPLANNER ---
Patient currently resides at [facility] level of care. Updated patient information has been faxed to Karena peraza/ Moy Osborne. Discharge date is unknown at this time.
[2023-06-30 12:55] LABS: Hemoglobin A1C 5.4 % (4.0-6.0)
--- NOTE | 2023-06-30 12:57 | PC.NURSE ---
PT HAS REFUSED [facility] MEDICATION ADMINISTRATIONS SINCE ARRIVING TO THE FLOOR. DR GREENFIELD NOTIFIED.
--- NOTE | 2023-06-30 14:41 | DIET.NUTRFU ---
Chart reviewed from [facility] her baseline diet is MSOFT with ground meat and house supplement BID. Changed diet here to MSOFT ground and added glucerna with all trays. She does also needed assistance with meals on her last admit in March
--- NOTE | 2023-06-30 17:39 | PC.NURSE ---
PT HAS BEEN RESISTIVE TO MOST ASPECTS OF HER CARE T/O SHIFT. SHE WILL NOT ALLOW THIS RN TO ADMIN MEDICATIONS AND HAS REFUSED HER FINGER STICKS. SHE REFUSED ALL FOOD EXCEPT FOR HER YOGURT. SHE WOULD NOT ALLOW STAFF TO REPOSITION HER IN BED. SHE HAS DENIED AND PAIN OR DISCOMFORT THIS SHIFT. SHE HAS BEEN INCONTINENT OF BLADDER THIS SHIFT.
--- NOTE | 2023-06-30 20:28 | PC.NURSE ---
pt refusing 2100 medication per NOV and 2099 VS. states i want to go home
--- NOTE | 2023-06-30 21:15 | PC.NURSE ---
REFUSES TO BE TURNED AND REPOSITIONED. REFUSES MEDICATIONS. REFUSED FSBS.
--- NOTE | 2023-06-30 21:54 | PC.NURSE ---
JAIMEE Gonzalez CONTACTED RE PATIENTS REFUSAL OF CARE. PATIENT YELLS OUT FREQUENTLY. THINKS SOMEONE SITTING ON HER LEGS. TELLS STAFF TO GET THE F..K OUT OF HER ROOM. WANTS TO GO HOME.
--- NOTE | 2023-06-30 22:47 | PC.NURSE ---
PATIENT OFFERED WATER. OBSERVED PATIENT COUGHING AND STRANGLING WHILE DRINKING. PATIENT WAS IN A 40 DEGREE ANGLE AND WAS USING A STRAW WITH HER DRINKING CUP.
--- NOTE | 2023-06-30 23:04 | PC.NURSE ---
ATTEMPTED TO GET VITAL SIGNS BUT PATIENT BECAME COMBATIVE. REFUSED.
[2023-07-01] VITALS: BP 113/75; PULSE 70; RESP 18; TEMP 36.4; O2SAT 90
--- NOTE | 2023-07-01 01:57 | PC.NURSE ---
0000 PATIENT PULLED 02 CANULA OFF. REFUSES TO WEAR. BECOMES VERY AGITATED WITH NATTEMPTS TO PUT BACK ON. YELLS OUT FREQUENTLY.
--- NOTE | 2023-07-01 02:56 | PC.NURSE ---
called hospitalist for pain medication. pt was agreeable. attempted to administer tylenol, pt refused to take medication and continued to yell.
[2023-07-01 04:00] VITALS: BP 108/54; PULSE 73; RESP 18; TEMP 36.5; O2SAT 97; BMI 36.6
--- NOTE | 2023-07-01 07:02 | PC.NURSE ---
PATIENT TOLERATED THICKENED LIQS . STRANGLES WITH THIN LIQS.
[2023-07-01 07:30] VITALS: BP 126/59; PULSE 72; RESP 18; TEMP 37.2; O2SAT 97
--- NOTE | 2023-07-01 07:32 | PC.NURSE ---
i went in to assess pt. she screamed at me to get out of the room. i attempted to ask her what was wrong but she would not allow me to talk. will continue to attempt to assess pt.
--- NOTE | 2023-07-01 11:51 | PC.NURSE ---
pt refused fsbs.
--- NOTE | 2023-07-01 12:36 | PC.NURSE ---
pt continues to refuse most care. staff has been turning and repositioning her but that is about all she will tolerate
[2023-07-01 15:18] VITALS: BP 112/56; PULSE 73; RESP 18; TEMP 37.2; O2SAT 99
--- NOTE | 2023-07-01 15:29 | EXP.ACUTE.PN ---
Subjective *Date: 07/01/23 *Time: 15:51 Interval history: Patient minimally cooperative today. Refused morning labs. Pulled off her oxygen. O2 sats remained stable above 90 however. Eating with assistance. No fever since admission. Incontinent. Medical Exam Vital signs and Labs for Last 24 Hours: Vital Signs Temp Pulse Resp BP Pulse Ox O2 Del Method O2 Flow Rate 07/01/23 15:18 99.0 F 73 18 112/56 L 99 Room Air 07/01/23 11:00 Room Air 07/01/23 09:00 Room Air 07/01/23 08:00 Room Air 07/01/23 07:30 98.9 F 72 18 126/59 L 97 Room Air 07/01/23 06:51 Room Air 07/01/23 05:00 Room Air 07/01/23 04:00 97.7 F 73 18 108/54 L 97 Room Air 07/01/23 03:00 Room Air 07/01/23 01:00 Room Air 07/01/23 00:00 97.5 F L 70 18 113/75 90 L Room Air 06/30/23 22:49 Nasal Cannula 3 06/30/23 22:25 Nasal Cannula 3 06/30/23 21:00 Nasal Cannula 3 06/30/23 20:00 98 Nasal Cannula 3 06/30/23 17:00 Nasal Cannula 3 06/30/23 16:00 75 19 105/47 L 99 Room Air Intake and Output 06/30/23 07/01/23 07/01/23 23:59 07:59 15:59 Intake Total 360 / 360 0 / 360 Output Total 1 / 1 0 / 0 0 / 0 Balance - / 359 360 / 360 0 / 360 Intake: Intake, Oral Amount 360 / 360 0 / 360 Output: Output, Urine Amount 1 / 1 0 / 0 0 / 0 Other: Number of Voids 0 Number of Unmeasured Voids 1 0 0 Number of Bowel Movements 1 Weight 99.535 kg Patient Weight 07/01/23 23:59 Weight 99.535 kg I & O for Labs for Last 24 Hours: Intake & Output 06/28/23 06/29/23 06/30/23 07/01/23 23:59 23:59 23:59 23:59 Intake Total 360 / 360 Output Total 1 / 1 0 / 0 Balance - 359 360 / 360 Weight 100 kg 99.535 kg Additional Findings:: General: Elderly female, stable on room air. Obese. awake alert does not seem to be oriented to place or time. Oral cavity: MMM Chest: Diminished breath sounds at bases no signs of any respiratory distress CVS: Regular rate and rhythm Abdomen: Bowel sounds present Extremities: Atrophy and deformity of the right upper extremity. 1+ edema of the bilateral lower extremities. Able to move all of the 3 extremities other than right upper Neuro: Awake alert not oriented to place or time. Able to move all 4 extremities but limited movement of the right upper. Agitated. Uncooperative Assessment and Plan *Assessment and plan (1) Toxic metabolic encephalopathy: Status: Acute Category: Medical Code(s): G92.8 - Other toxic encephalopathy (2) Acute on chronic heart failure with preserved ejection fraction: Status: Acute Category: Medical Code(s): I50.33 - Acute on chronic diastolic (congestive) heart failure (3) Hypoxia: Status: Acute Category: Medical Code(s): R09.02 - Hypoxemia (4) Urinary tract infection due to extended-spectrum beta lactamase (ESBL) producing Escherichia coli: Status: Acute Category: Medical Code(s): N39.0 - Urinary tract infection, site not specified; B96.29 - Other Escherichia coli [E. coli] as the cause of diseases classified elsewhere; Z16.12 - Extended spectrum beta lactamase (ESBL) resistance (5) Acute kidney injury superimposed on CKD: Status: Acute Category: Medical Code(s): N17.9 - Acute kidney failure, unspecified; N18.9 - Chronic kidney disease, unspecified (6) Hyperkalemia: Status: Acute Category: Medical Code(s): E87.5 - Hyperkalemia (7) Persistent cognitive impairment: Status: Chronic Category: Medical Code(s): R41.89 - Other symptoms and signs involving cognitive functions and awareness (8) Parkinson disease: Status: Chronic Qualifiers: Dyskinesia presence: unspecified whether dyskinesia Fluctuating manifestations: unspecified whether manifestations fluctuate Qualified Code(s): G20.A1 - Parkinson's disease without d
[2023-07-01 16:26] LABS: Basophils % 0.3 % (0.1-2.0); Eosinophils # 0.1 K/mm3 (0.0-0.4); Eosinophils % 2.7 % (0.1-12.0); Hematocrit 29.9 % (37.0-47.0); Hemoglobin 9.4 g/dL (12.2-16.2); Lymphocytes # 1.4 K/mm3 (0.7-4.5); Lymphocytes % 30.7 % (10-50); Mean Corpuscular HGB Conc 31.4 g/dL (31.8-35.4); Mean Corpuscular Hemoglobin 30.2 pg (27.0-31.2); Mean Platelet Volume 9.2 fl (7.4-10.4); Monocytes # 0.3 K/mm3 (0.1-1.0); Monocytes % 7.1 % (1.7-9.3); Neutrophils # 2.8 K/mm3 (1.8-7.8); Neutrophils % 59.1 % (37.0-80.0); Platelet Count 172 K/mm3 (142-424); Red Blood Count 3.11 M/mm3 (4.20-5.40); White Blood Count 4.7 K/mm3 (4.8-10.8)
[2023-07-01 16:29] LABS: Chloride 105 mmol/L (98-107); Sodium 134 mmol/L (136-145)
[2023-07-01 16:30] LABS: Potassium 4.7 mmoL/L (3.5-5.1)
[2023-07-01 16:32] LABS: Alanine Aminotransferase 33 U/L (12-78); Albumin Level 1.9 g/dl (3.5-5.0); Albumin/Globulin Ratio 0.6 (1.1-1.8); Alkaline Phosphatase 93 U/L (38-126); Anion Gap 5.7 mEq/L (5-15); Aspartate Amino Transferase 46 U/L (14-36); Bilirubin,Total 0.4 mg/dl (0.2-1.3); Blood Urea Nitrogen 38 mg/dl (7-17); Calcium 7.6 mg/dl (8.4-10.2); Carbon Dioxide 28 mmol/L (22.0-30.0); Creatinine Clearance Estimated 40 mL/min (50-200); Estimated Glomerular Filt Rate 26 ml/min (>60); GFR (African American) 31 ML/MIN (>60); Glucose 76 mg/dl (74-100); Magnesium 2.7 mg/dl (1.6-2.3); Total Protein,Serum 4.9 g/dl (6.3-8.2)
[2023-07-01 16:52] LABS: NT Pro Brain Natriuretic Pep. 22600 pg/mL (0-450)
--- NOTE | 2023-07-01 17:53 | PC.NURSE ---
spoke with pts son regarding pt. He states it is usual behavior for her to refuse treatment.
[2023-07-01 20:00] VITALS: BP 124/70; PULSE 78; RESP 19; TEMP 36.4; O2SAT 97
[2023-07-02 04:00] VITALS: BP 124/56; PULSE 71; RESP 20; TEMP 36.7; O2SAT 96; BMI 36.3
--- NOTE | 2023-07-02 06:04 | PC.NURSE ---
patient received toradol 30 mg ivp at 0534 and was effective for leg cramps 05/04. FSBS 101. resting quietly in bed. nad. 02 sat on room air 90%.
--- NOTE | 2023-07-02 06:17 | PC.NURSE ---
PATIENT REMAINS UNCOOPERATIVE AND RESISTIVE TO CARE. YELLS OUT FREQUENTLY BUT NOT SURE OF WHAT SHE WANTS. REFUSES MEDICATION AND FSBSs. INCONTINENT OF B&B, WEARS BRIEFS. 02 SAT 96% ON ROOM AIR. OCCASSIONAL DRY COUGH NOTED.
[2023-07-02 07:49] VITALS: BP 141/64; PULSE 70; RESP 18; TEMP 37.2; O2SAT 99
--- NOTE | 2023-07-02 09:38 | PC.NURSE ---
PT ALLOWED ME TO PERFORM ASSESSMENT, BUT IS ADAMANT ABOUT NOT TAKING HER MORNING MEDICINES.
--- NOTE | 2023-07-02 10:46 | EXP.DC.SUM ---
General Admission date:: 06/30/23 Discharge date: 07/02/23 HPI HPI HPI: Unable to obtain history from patient due to confusion. Opens eyes to questioning but no meaningful response. Complains of shortness of breath and wanting to sit up. History obtained from chart and ER notes. Ms. Lee is a longtime resident at [facility]. History of dementia, diabetes, CAD, A-fib on chronic anticoagulation, CKD, recurrent UTIs, obesity. She presented to the ER because of some increased oxygen requirement, worsening confusion, and decreased p.o. intake. Patient is awake but does not answer questions appropriately. Responds to verbal and painful stimuli with opening eyes and trying to talk. Per the detention, she has been treated for a UTI with initiation of ertapenem that was begun 3 days ago. Also was given a liter of IV fluid in the past 2 days because of creatinine of 2.3 on 06/23. Previous UTIs show Klebsiella, Providencia, and E. coli. All sensitive to ertapenem and meropenem. On arrival to the ER, patient is encephalopathic, necessitating supplemental oxygen at 4 L (baseline room air). Labs reviewed, no leukocytosis. Still has AKILA with creatinine at 2 (baseline approximately 1.5). Patient was initiated on meropenem in the ER and medicine was consulted for admission and further management. On evaluation, review of patient's CT of her chest shows no effusions or focal airspace disease. Oxygen weaned to 3 L during my exam with O2 sats in the high 90s. Noted to have significant lower extremity edema, BNP 28,000. Hospital Course Hospital Course Hospital Course: 73-year-old female from [facility] presented to ED for encephalopathy, UTI, AKILA. In the ER is found to be confused from baseline. Improvement in mentation with diuresis and treatment of her UTI. Stable for discharge back to nursing facility. Plan to complete 10 days total of IV antibiotics with ertapenem based on initiation date prior to admission. Tolerating p.o. intake. Appears at baseline mentation. Problems addressed as follows: Encephalopathy, toxic vs metabolic; improving UTI, ESBL AKILA on CKD -UA grossly abnormal on admission. Patient confused. Was started on ertapenem based on previous cultures with numerous pathogens all sensitive to ertapenem. Has shown improvement clinically during admission. White cell count normal on day of discharge. Patient afebrile and back to baseline mentation. Plan to complete ertapenem 1 g daily IV for total of 10 days. Patient's AKILA has improved. Recommend continuing diuresis, increase Lasix to daily at detention on discharge. Hospital obtained blood and urine cultures remain negative. Recommend reviewing urine culture obtained prior to admission to help guide management however given previous UTIs, ertapenem should cover previous pathogens. AoC HFpEF -BNP significantly elevated 28,000 on admission. Showing improvement in diuresis. Able to wean to room air. BNP trending down with repeat levels lower. Edema slightly better. Recommend continuing diuresis with Lasix daily. Repeat CMP and BNP in 1 week. Hyperkalemia: Chronic, improved with diuresis. Continue home Lokelma chronic anticoagulation: Continue Xarelto 15 mg Hypothyroidism: Continue home levothyroxine 150 mcg daily Continue lactulose for constipation 30 ml daily A-fib: Continue carvedilol 6.25 mg twice daily and amiodarone 200 mg daily Stable for discharge back to nursing facility. Complete antibiotics as above. Exam Data for Last 24 hours Vital signs and Labs for Last 24 Hours: Temp Pulse Resp BP Pulse Ox O2 Del Method O2 Flow Rate 98.9 F 70 18 141/64 H 99 Room Air 3 07/02/23 07:49 07/02/23 07:49 07/02/23 07:49 07/02/23 07:49 07/02/23 07:49 07/02/23 10:37 06/30/23 22:49 Laboratory Results - last 24 hr 07/01/23 16:15: WBC 4.7 L D, RBC 3.11 L, Hgb 9.4 L, Hct 29.9 L, MCV 96.0, MCH 30.2, MCHC 31.4 L, RDW 17.0, Plt Count 17
== END 2023-07-02 13:30 | DRG 291 ==
LOC: ER 07:40 → 2ND 09:47
PROVIDERS: Emergency Medicine; Admitting Provider Internal Medicine Adolescent Medicine; Emergency Provider Emergency Medicine; PCP Emergency Medicine; Visit Provider Internal Medicine Adolescent Medicine
DX: I50.33 Acute on chronic diastolic (congestive) heart failure (principal); G92.8 Other toxic encephalopathy; J96.01 Acute respiratory failure with hypoxia; N39.0 Urinary tract infection, site not specified; Z16.12 Extended spectrum beta lactamase (ESBL) resistance; N17.9 Acute kidney failure, unspecified; B96.29 Other Escherichia coli [E. coli] as the cause of diseases classified elsewhere; N18.9 Chronic kidney disease, unspecified; E87.5 Hyperkalemia; R41.89 Other symptoms and signs involving cognitive functions and awareness; Z79.01 Long term (current) use of anticoagulants; F03.90 Unspecified dementia, unspecified severity, without behavioral disturbance, psychotic disturbance, mood disturbance, and anxiety; I48.91 Unspecified atrial fibrillation; E11.22 Type 2 diabetes mellitus with diabetic chronic kidney disease; E66.9 Obesity, unspecified; Z68.36 Body mass index [BMI] 36.0-36.9, adult; G20.A1 Parkinson's disease without dyskinesia, without mention of fluctuations; Z86.73 Personal history of transient ischemic attack (TIA), and cerebral infarction without residual deficits
CPT/HCPCS: 70450; 71045; 71275; 74177; 80053; 81001; 82009; 82803; 83036; 83735; 83880; 85025; 85378; 87040; 87081; 87086; 87636; 93005; 93306; 99285; J0131; J1335; J2185; Q9967